=== PATIENT | male | born 1945 | race Caucasian/White ===

== ENCOUNTER 2017-05-14 18:35 | Observation (INO) | payer OTHER, MEDICARE ==
[2017-05-14] VITALS (8 sets, daily range): BP systolic 124–158; BP diastolic 64–87
[~2017-05-14] VITALS: Ht 167.6 cm; Wt 94.3 kg
[~2017-05-14 18:35] MED LIST: ASPIRIN81 MG PO; ATORVASTATIN CA20 MG PO; FENOFIBRATE145 MG PO; FOLIC ACID1 MG PO; METOPROLOL TART25 MG PO; MULTIVITAMINS1 EAC7 PO; NITROGLYCERIN0.4 MG SL; OMEPRAZOLE40 MG PO; VITAMIN B-650 MG PO; ZETIA10 MG PO
--- NOTE | 2017-05-14 19:10 | Operative Report ---
DATE OF PROCEDURE: May 14, 2017 INDICATIONS: 1. Coronary artery disease. 2. Peripheral arterial disease. PROCEDURES PERFORMED: 1. Left heart catheterization, selective coronary angiography. 2. Abdominal aortogram runoff to bilateral femoral arteries. COMPLICATIONS: None. RECOMMENDATIONS: Medical therapy. Access obtained in the right femoral artery. A 6-Amharic sheath was placed and heavy calcifications were noted in the iliac and common femoral arteries. Left main was heavily calcified. Proximal left anterior descending artery 67% heavily calcified lesion. Stent in the 1st diagonal artery 80%. In-stent re-stenosis stent in the circumflex was widely patent. Right coronary artery diffuse 30% to 50% heavily calcified stenosis. No intervention was deemed necessary. Abdominal aortogram with patent endovascular aneurysm repair bypass graft heavily calcified. Common femoral arteries right femoral artery is completely occluded. Left femoral artery focal 80% stenosis. Both vessels extremely calcified. No intervention was deemed necessary. RECOMMENDATIONS: 1. Medical therapy of coronary artery disease. 2. Femoral fem-pop bypass in the right femoral artery if the patient has severe claudication or ulceration. Sheath was removed under manual pressure. Job#: [id number]
[2017-05-14] MEDS ORDERED: MORPHINE SULFATE 2 MG/ML SYR IV PRN (20:15)
[2017-05-14] MEDS ORDERED: HYDROMORPHONE 1MG/1ML INJ IV PRN (20:30)
== END 2017-05-14 22:06 | disposition home or self-care (01) ==
LOC: IMCU 18:35
PROVIDERS: ADMIT Internal Medicine Interventional Cardiology; ATTEND Internal Medicine Interventional Cardiology
DX: I25.119 Atherosclerotic heart disease of native coronary artery with unspecified angina pectoris (principal); I70.298 Other atherosclerosis of native arteries of extremities, other extremity; I70.92 Chronic total occlusion of artery of the extremities; I10 Essential (primary) hypertension; Z79.82 Long term (current) use of aspirin; Z68.30 Body mass index [BMI] 30.0-30.9, adult; Z95.5 Presence of coronary angioplasty implant and graft
CPT/HCPCS: 36415; 75630; 77002; 80053; 80061; 85025; 85610; 93458; G0378; J2001; J2250; J7030; Q9967; 36140

== ENCOUNTER 2018-01-14 18:45 | Emergency (ER) | payer MEDICARE, OTHER ==
[~2018-01-14] VITALS: Ht 167.6 cm; Wt 94.3 kg
--- NOTE | 2018-01-14 19:06 | Operative Report ---
DATE OF PROCEDURE: NO DICTATION (00:03) Job#: [id number] CQ
[2018-01-14] MEDS ORDERED: FOSPHENYTOIN 50 MG/ML VIAL IV STA (20:15)
--- NOTE | 2018-01-14 20:19 | Diagnostic Imaging Report ---
EXAMINATION: Head CT without contrast. HISTORY:Dizziness and hypertension. COMPARISON:None. TECHNIQUE: Multidetector axial images were obtained from the foramen magnum to the vertex without contrast. The images were reconstructed using brain and bone algorithms. Thin section brain images were reformatted into coronal and sagittal planes. Dose modulation, iterative reconstruction, and/or weight based adjustment of the mA/kV was utilized to reduce the radiation dose to as low as reasonably achievable. Intravenous contrast: None IMAGE QUALITY: Acceptable. FINDINGS: Skull/scalp: No lytic or blastic. lesions. No surgical changes. Parenchyma/extra-axial space: Large acute subarachnoid hemorrhage centered in the basilar cistern, particularly involving premedullary, prepontine, perimesencephalic cistern, bilateral sylvian fissure, suprasellar cistern and anterior interhemispheric fissure. There is a large globular hemorrhage in the right paramedian aspect of the anterior interhemispheric fissure that approximately measures 1.7 x 1.5 x 1.6 cm (SAT) raising possibility of rupture of aneurysm at the level of the anterior communicating artery. Nonspecific few, scattered supratentorial white matter patchy hypodensity are likely related to small vessel ischemic changes. No mass or acute major vascular territorial infarct. No midline shift or brain herniation. Arteries: Atherosclerotic calcification in bilateral carotid siphon and V4 segment of the vertebral arteries. Dural sinuses: No abnormal density suggestive of thrombosis. Ventricles: Mild compensated dilatation due to volume loss. No acute hydrocephalus. Brain volume: Normal for age. Craniocervical junction: No mass, Chiari malformation, or basilar invagination. Sella: No mass, effacement of suprasellar cistern due to acute subarachnoid hemorrhage. Paranasal/mastoid sinuses: Imaged portions unremarkable. IMPRESSION: 1. 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 Recommendation: CTA head and neurosurgery consultation. 2. Mild supratentorial white matter microvascular ischemic changes and mild generalized age-related cerebral volume loss. Critical findings were informed to ER physician Dr. Cheney by phone at 8:07 PM on 01/15/2016. Signed by: Dr. Alisia Taylor M.D. on 01/14/2018 8:16 PM
[2018-01-14] MEDS ORDERED: NICARDIPINE 20MG/200ML PREMIX 200 ML ONE (20:21)
[2018-01-14] MEDS ORDERED: NICARDIPINE 20MG/200ML PREMIX 200 ML IV PRN (20:30)
[2018-01-14] MEDS ORDERED: FOSPHENYTOIN 1,000 MG in SODIUM CHLORIDE 0.9% 50ML 50 ML IV ONE (20:30)
[2018-01-14 20:33] LABS: BASOPHILS % 0.4 % (0.0-1.0); EOSINOPHILS # (AUTO) 0.2 (0.0-0.4); HEMATOCRIT 46.9 % (38.2-49.6); HEMOGLOBIN 16.9 g/dL (14.0-18.0); LYMPHOCYTES # (AUTO) 0.9 (1.0-3.2); LYMPHOCYTES % 11.1 % (18.0-39.1); MEAN CORPUSCULAR HEMOGLOBIN 33.4 pg (28-32); MEAN CORPUSCULAR VOLUME 92.7 fL (81-99); MONOCYTES # (AUTO) 0.7 (0.2-0.8); MONOCYTES % 8.7 % (4.4-11.3); NEUTROPHILS # (AUTO) 6.1 (2.1-6.9); NEUTROPHILS % 76.4 % (38.7-80.0); PLATELET COUNT 123 x10e3/uL (140-360); RED BLOOD COUNT 5.06 x10e6/uL (4.3-5.7); RED CELL DISTRIBUTION WIDTH 12.4 % (11.7-14.4)
[2018-01-14] MEDS ORDERED: ACETAMINOPHEN 1000 MG/100 ML IV STA (20:44)
[2018-01-14 20:51] LABS: INR 0.88; PROTHROMBIN TIME 12.8 seconds (11.9-14.5)
[2018-01-14 20:52] LABS: PARTIAL THROMBOPLASTIN TIME 34.4 seconds (23.8-35.5)
[2018-01-14] MEDS ORDERED: CLOPIDOGREL75 MG PO (20:53)
[2018-01-14] MEDS ORDERED: LOPRESSOR25 MG PO (20:53)
[2018-01-14 20:54] LABS: ALANINE AMINOTRANSFERASE 26 IU/L (0-55); ALBUMIN/GLOBULIN RATIO 1.2 (0.8-2.0); ALKALINE PHOSPHATASE 78 IU/L (40-150); ANION GAP 15.8 mmol/L (8-16); BLOOD UREA NITROGEN 18 mg/dL (7-26); BUN/CREATININE RATIO 21 (6-25); CALCIUM 9.8 mg/dL (8.4-10.2); CARBON DIOXIDE 25 mmol/L (22-29); CHLORIDE 101 mmol/L (98-107); CREATINE KINASE 121 IU/L (30-200); CREATININE, SERUM 0.87 mg/dL (0.72-1.25); EST GLOMERULAR FILTRATION RATE > 60 ML/MIN (60-); GLUCOSE 136 mg/dL (74-118); POTASSIUM 3.8 mmol/L (3.5-5.1); SODIUM 138 mmol/L (136-145)
[2018-01-14 21:22] VITALS: BP 134/81
[2018-01-15] MEDS ORDERED: NICARDIPINE 20MG/200ML PREMIX 200 ML IV PRN (20:30)
== END 2018-01-14 21:48 | disposition other institution (70) ==
LOC: ER 18:45
DX: I60.9 Nontraumatic subarachnoid hemorrhage, unspecified (principal); I10 Essential (primary) hypertension; I70.201 Unspecified atherosclerosis of native arteries of extremities, right leg; Z95.820 Peripheral vascular angioplasty status with implants and grafts; K21.9 Gastro-esophageal reflux disease without esophagitis; E78.5 Hyperlipidemia, unspecified; F17.210 Nicotine dependence, cigarettes, uncomplicated; I25.2 Old myocardial infarction; Z79.82 Long term (current) use of aspirin; Z79.02 Long term (current) use of antithrombotics/antiplatelets; Z79.1 Long term (current) use of non-steroidal anti-inflammatories (NSAID)
CPT/HCPCS: 36415; 70450; 80053; 82550; 82553; 84484; 85025; 85610; 85730; 86850; 86900; 93005; 99284; J0131; Q2009

== ENCOUNTER 2018-09-05 06:30 | Observation (INO) | payer MEDICARE, OTHER ==
[2018-09-03 10:47] LABS: BASOPHILS % 0.5 % (0.0-1.0); EOSINOPHILS # (AUTO) 0.2 (0.0-0.4); EOSINOPHILS % 3.2 % (0.0-6.0); HEMATOCRIT 47.7 % (38.2-49.6); LYMPHOCYTES # (AUTO) 1.5 (1.0-3.2); LYMPHOCYTES % 19.7 % (18.0-39.1); MEAN CORPUSCULAR HEMOGLOBIN 32.1 pg (28-32); MEAN CORPUSCULAR HGB CONC 35.6 g/dL (31-35); MEAN CORPUSCULAR VOLUME 90.2 fL (81-99); MONOCYTES # (AUTO) 0.7 (0.2-0.8); MONOCYTES % 9.5 % (4.4-11.3); NEUTROPHILS # (AUTO) 5.1 (2.1-6.9); NEUTROPHILS % 66.8 % (38.7-80.0); PLATELET COUNT 152 x10e3/uL (140-360); RED BLOOD COUNT 5.29 x10e6/uL (4.3-5.7); RED CELL DISTRIBUTION WIDTH 12.5 % (11.7-14.4)
[2018-09-03 11:01] LABS: INR 0.91; PROTHROMBIN TIME 12.7 seconds (11.9-14.5)
[2018-09-03 11:08] LABS: ALANINE AMINOTRANSFERASE 24 IU/L (0-55); ALBUMIN 4.2 g/dL (3.5-5.0); ALBUMIN/GLOBULIN RATIO 1.3 (0.8-2.0); ALKALINE PHOSPHATASE 86 IU/L (40-150); ANION GAP 15.3 mmol/L (8-16); BLOOD UREA NITROGEN 11 mg/dL (7-26); BUN/CREATININE RATIO 14 (6-25); CALCIUM 9.8 mg/dL (8.4-10.2); CARBON DIOXIDE 28 mmol/L (22-29); CHLORIDE 97 mmol/L (98-107); EST GLOMERULAR FILTRATION RATE > 60 ML/MIN (60-); GLUCOSE 72 mg/dL (74-118); POTASSIUM 4.3 mmol/L (3.5-5.1); SODIUM 136 mmol/L (136-145)
[2018-09-03 11:09] LABS: CHOL/HDL RATIO 3.1 (3.9-4.7)
[~2018-09-05] VITALS: Ht 167.6 cm; Wt 80.9 kg
[2018-09-05] VITALS (22 sets, daily range): BP systolic 121–178; BP diastolic 70–100
[~2018-09-05 06:30] MED LIST changes: +BEET ROOT PO; +CLOPIDOGREL75 MG PO; +LOPRESSOR25 MG PO; +METOPROLOL TART50 MG PO
--- OUTSIDE RECORDS SUMMARY | 2018-09-05 06:32 | XMS REPORT | Clinical Summary ---
Author Author [facility] Address Unknown Phone Unavailable Care Team Providers Care Food Prep Worker Name Role Phone PCP Unavailable Allergies No Known Allergies Medications End Date Status Medication Sig Dispensed Refills Start Date 01/26/2019 Active acetaminophen (TYLENOL) Take 2 30 tablet 0 325 MG tablet tablets (650 8 mg total) by mouth every 6 (six) hours as needed for Fever for up to 360 days. 02/01/2019 Active aspirin 81 MG chewable Take 1 tablet 30 tablet 11 tablet (81 mg total) 8 by mouth daily. 01/31/2019 Active atorvastatin (LIPITOR) 20 Take 1 tablet 30 tablet 11 MG tablet (20 mg total) 8 by mouth nightly. 02/01/2019 Active metoprolol (TOPROL-XL) Take 1 tablet 30 tablet 11 100 MG 24 hr tablet (100 mg 8 total) by mouth daily. 01/31/2019 Active levETIRAcetam (KEPPRA) Take 1 tablet 60 tablet 11 500 MG tablet (500 mg 8 total) by mouth 2 (two) times daily. 01/15/2018 Discontinued multivitamin per tablet Take 1 tablet 0 by mouth daily. 01/15/2018 Discontinued aspirin 81 MG EC tablet Take 81 mg by 0 mouth daily. 02/10/2018 acetaminophen-codeine Take 1 tablet 30 tablet 0 (TYLENOL #3) 300-30 mg by mouth 8 per tablet every 4 (four) hours as needed for up to 10 days. Max Daily Amount: 6 tablets 03/02/2018 apixaban (ELIQUIS) 5 mg Take 1 tablet 60 tablet 1 Tab tablet (5 mg total) 8 by mouth 2 (two) times daily for 30 days. 03/02/2018 QUEtiapine (SEROQUEL) 25 Take 3 90 tablet 1 MG tablet tablets (75 8 mg total) by mouth nightly for 30 days. 03/02/2018 mirtazapine (REMERON) 7.5 Take 1 tablet 30 tablet 1 MG tablet (7.5 mg 8 total) by mouth nightly for 30 days. 02/04/2018 niMODipine (NIMOTOP) 30 Take 2 48 capsule 0 MG capsule capsules (60 8 mg total) by mouth every 4 (four) hours for 4 days. Active Problems Problem Noted Date Essential hypertension 01/16/2018 PVD (peripheral vascular disease) 01/16/2018 Thunderclap headache 01/16/2018 Subarachnoid bleed 01/15/2018 Encounters Care Team Description Date Type Specialty 01/20/2018 Orders Only General Internal Medicine Ac Esparza MD 01/15/2018 Anesthesia Event Virtual, Surgeon PROCEDURE DONE OUTSIDE OR 01/15/2018 Surgery 01/15/2018 Travel Sergio Poe MD Jarrouge, Elie G., MD Bhattarai, MD Wilman Subarachnoid bleed (HCC); Essential hypertension; PVD (peripheral vascular disease) (HCC); Thunderclap headache; Paroxysmal atrial fibrillation (HCC); Acute encephalopathy; Alcoholism (HCC); Other abnormalities of gait and mobility; Delirium due to another medical condition 01/14/2018 [facility] General Internal Medicine - Encounter 01/31/2018 after 09/04/2017 Social History Date Tobacco Use Types Packs/Day Years Used Current Every Day Smoker Cigarettes 2 60 Smokeless Tobacco: Never Used Alcohol Use Drinks/Week oz/Week Comments Yes Alcohol Habits Answer Date Recorded How often do you have a drink containing alcohol? 2-4 times a month 01/15/2018 How many drinks containing alcohol do you have on 10 or more 01/15/2018 a typical day when you are drinking? How often do you have six or more drinks on one Weekly 01/15/2018 occasion? Sex Assigned at Date Recorded Not on file Industry Job Start Date Occupation Not on file Not on file Not on file Travel End Travel History Travel Start No recent travel history available. Last Filed Vital Signs Time Taken Vital Sign Reading 01/31/2018 11:30 AM [employer] Blood Pressure 127/74 01/31/2018 11:30 AM [employer]AKFAST SUPERVISOR Pulse 50 01/31/2018 11:30 AM BREAKFAST SUPERVISOR Temperature 36.1 C (97 F) 01/31/2018 11:30 AM BREAKFAST SUPERVISOR Respiratory Rate 18 01/31/2018 11:30 AM BREAKFAST SUPERVISOR Oxygen Saturation 96% 01/28/2018 12:02 AM BREAKFAST SUPERVISOR Inhaled Oxygen 21% Concentration 01/24/2018 4:00 AM BREAKFAST SUPERVISOR Weight 79.8 kg (175 lb 14.8 oz) 01/15/2018 1:00 AM BREAKFAST SUPERVISOR Height 167.6 cm (5' 6") 01/24/2018 4:00 AM [employer]AKFAST SUPERVISOR Body Mass Index 28.4 Plan of Treatment Not on file Procedures Comments Procedure Name Priority Date/Time Associated Diagnosis REPORT OF PROCEDURE - 02/18/2018 ENDOSCOPY SCAN 11:20 AM BREAKFAST SUPERVISOR RHYTHM STRIP - SCAN 02/18/2018 11:20 AM BREAKFAST SUPERVISOR POCT-GLUCOSE METER Routine 01/31/2018 11:48 AM BREAKFAST SUPERVISOR POCT-GLUCOSE METER Routine 01/31/2018 8:13 AM BREAKFAST SUPERVISOR POCT-GLUCOSE METER Routine 01/30/2018 9:16 PM BREAKFAST SUPERVISOR POCT-GLUCOSE METER Routine 01/30/2018 6:02 PM BREAKFAST SUPERVISOR POCT-GLUCOSE METER Routine 01/30/2018 12:37 PM BREAKFAST SUPERVISOR POCT-GLUCOSE METER Routine 01/29/2018 8:34 PM BREAKFAST SUPERVISOR POCT-GLUCOSE METER Routine 01/29/2018 5:43 PM BREAKFAST SUPERVISOR POCT-GLUCOSE METER Routine 01/29/2018 8:44 AM BREAKFAST SUPERVISOR CBC W/PLT COUNT & AUTO SHAHID 01/29/2018 DIFFERENTIAL 4:41 AM BREAKFAST SUPERVISOR CBC W/PLT COUNT & AUTO SHAHID 01/29/2018 DIFFERENTIAL 4:41 AM BREAKFAST SUPERVISOR BASIC METABOLIC PANEL (7) Routine 01/29/2018 4:41 AM BREAKFAST SUPERVISOR POCT-GLUCOSE METER Routine 01/28/2018 9:18 PM BREAKFAST SUPERVISOR POCT-GLUCOSE METER Routine 01/28/2018 5:04 PM BREAKFAST SUPERVISOR POCT-GLUCOSE METER Routine 01/28/2018 7:58 AM BREAKFAST SUPERVISOR CBC W/PLT COUNT & AUTO SHAHID 01/28/2018 DIFFERENTIAL 4:55 AM BREAKFAST SUPERVISOR CBC W/PLT COUNT & AUTO SHAHID 01/28/2018 DIFFERENTIAL 4:55 AM BREAKFAST SUPERVISOR BASIC METABOLIC PANEL (7) Routine 01/28/2018 4:55 AM BREAKFAST SUPERVISOR POCT-GLUCOSE METER Routine 01/27/2018 8:48 PM BREAKFAST SUPERVISOR POCT-GLUCOSE METER Routine 01/27/2018 5:56 PM BREAKFAST SUPERVISOR POCT-GLUCOSE METER Routine 01/27/2018 2:34 PM BREAKFAST SUPERVISOR ECHOCARDIOGRAM REPORT - 01/27/2018 SCAN 1:20 PM BREAKFAST SUPERVISOR POCT-GLUCOSE METER Routine 01/27/2018 7:33 AM BREAKFAST SUPERVISOR POCT-GLUCOSE METER Routine 01/27/2018 6:02 AM BREAKFAST SUPERVISOR CBC (HEMOGRAM ONLY) Routine 01/27/2018 3:53 AM BREAKFAST SUPERVISOR MAGNESIUM Routine 01/27/2018 3:53 AM BREAKFAST SUPERVISOR BASIC METABOLIC PANEL (7) Routine 01/27/2018 3:53 AM BREAKFAST SUPERVISOR POCT-GLUCOSE METER Routine 01/26/2018 11:39 PM BREAKFAST SUPERVISOR POCT-GLUCOSE METER Routine 01/26/2018 5:42 PM BREAKFAST SUPERVISOR POCT-GLUCOSE METER Routine 01/26/2018 6:07 AM BREAKFAST SUPERVISOR MAGNESIUM Routine 01/26/2018 4:16 AM BREAKFAST SUPERVISOR BASIC METABOLIC PANEL (7) Routine 01/26/2018 4:16 AM BREAKFAST SUPERVISOR POCT-GLUCOSE METER Routine 01/25/2018 11:38 PM BREAKFAST SUPERVISOR POCT-GLUCOSE METER Routine 01/25/2018 6:20 PM BREAKFAST SUPERVISOR POCT-GLUCOSE METER Routine 01/25/2018 5:59 AM BREAKFAST SUPERVISOR MAGNESIUM Routine 01/25/2018 5:48 AM BREAKFAST SUPERVISOR BASIC METABOLIC PANEL (7) Routine 01/25/2018 5:48 AM BREAKFAST SUPERVISOR POCT-GLUCOSE METER Routine 01/25/2018 12:10 AM BREAKFAST SUPERVISOR POCT-GLUCOSE METER Routine 01/24/2018 5:30 PM BREAKFAST SUPERVISOR POCT-GLUCOSE METER Routine 01/24/2018 12:24 PM BREAKFAST SUPERVISOR SODIUM SHAHID 01/24/2018 11:09 AM BREAKFAST SUPERVISOR POCT-GLUCOSE METER Routine 01/24/2018 8:17 AM BREAKFAST SUPERVISOR POCT-GLUCOSE METER Routine 01/24/2018 6:18 AM BREAKFAST SUPERVISOR CBC W/PLT COUNT & AUTO Routine 01/24/2018 DIFFERENTIAL 3:16 AM BREAKFAST SUPERVISOR CBC W/PLT COUNT & AUTO Routine 01/24/2018 DIFFERENTIAL 3:16 AM BREAKFAST SUPERVISOR MAGNESIUM Routine 01/24/2018 3:15 AM BREAKFAST SUPERVISOR BASIC METABOLIC PANEL (7) Routine 01/24/2018 3:15 AM BREAKFAST SUPERVISOR POCT-GLUCOSE METER Routine 01/24/2018 12:14 AM BREAKFAST SUPERVISOR POCT-GLUCOSE METER Routine 01/23/2018 6:35 PM BREAKFAST SUPERVISOR POCT-GLUCOSE METER Routine 01/23/2018 12:22 PM BREAKFAST SUPERVISOR POCT-GLUCOSE METER Routine 01/23/2018 6:12 AM BREAKFAST SUPERVISOR CBC W/PLT COUNT & AUTO Routine 01/23/2018 DIFFERENTIAL 5:12 AM BREAKFAST SUPERVISOR BASIC METABOLIC PANEL (7) Routine 01/23/2018 5:12 AM BREAKFAST SUPERVISOR CBC W/PLT COUNT & AUTO Routine 01/23/2018 DIFFERENTIAL 5:12 AM BREAKFAST SUPERVISOR MAGNESIUM Routine 01/23/2018 5:12 AM BREAKFAST SUPERVISOR POCT-GLUCOSE METER Routine 01/22/2018 5:13 PM BREAKFAST SUPERVISOR SODIUM Routine 01/22/2018 4:56 PM BREAKFAST SUPERVISOR POCT-GLUCOSE METER Routine 01/22/2018 12:33 PM BREAKFAST SUPERVISOR POCT-GLUCOSE METER Routine 01/22/2018 9:27 AM BREAKFAST SUPERVISOR POCT-GLUCOSE METER Routine 01/22/2018 5:50 AM BREAKFAST SUPERVISOR CBC W/PLT COUNT & AUTO Routine 01/22/2018 DIFFERENTIAL 4:27 AM BREAKFAST SUPERVISOR HEMOGLOBIN A1C Routine 01/22/2018 4:27 AM BREAKFAST SUPERVISOR TSH Routine 01/22/2018 4:27 AM BREAKFAST SUPERVISOR BASIC METABOLIC PANEL (7) Routine 01/22/2018 4:27 AM BREAKFAST SUPERVISOR CBC W/PLT COUNT & AUTO Routine 01/22/2018 DIFFERENTIAL 4:27 AM BREAKFAST SUPERVISOR MAGNESIUM Routine 01/22/2018 4:27 AM BREAKFAST SUPERVISOR POCT-GLUCOSE METER Routine 01/21/2018 11:33 PM BREAKFAST SUPERVISOR NEURO TCD - COMPLETE Routine 01/21/2018 6:08 PM BREAKFAST SUPERVISOR POCT-GLUCOSE METER Routine 01/21/2018 4:34 PM BREAKFAST SUPERVISOR POCT-GLUCOSE METER Routine 01/21/2018 10:58 AM BREAKFAST SUPERVISOR ECG 12-LEAD STAT 01/21/2018 9:14 AM BREAKFAST SUPERVISOR POCT-GLUCOSE METER Routine 01/21/2018 8:09 AM BREAKFAST SUPERVISOR POCT-GLUCOSE METER Routine 01/21/2018 5:56 AM BREAKFAST SUPERVISOR CBC W/PLT COUNT & AUTO Routine 01/21/2018 DIFFERENTIAL 2:59 AM BREAKFAST SUPERVISOR BASIC METABOLIC PANEL (7) Routine 01/21/2018 2:59 AM BREAKFAST SUPERVISOR CBC W/PLT COUNT & AUTO Routine 01/21/2018 DIFFERENTIAL 2:59 AM BREAKFAST SUPERVISOR MAGNESIUM Routine 01/21/2018 2:59 AM BREAKFAST SUPERVISOR POCT-GLUCOSE METER Routine 01/21/2018 2:05 AM BREAKFAST SUPERVISOR EEG AWAKE AND DROWSY Routine 01/20/2018 1:42 PM BREAKFAST SUPERVISOR POCT-GLUCOSE METER Routine 01/20/2018 12:[address] BRAIN WITHOUT IV STAT 01/20/2018 CONTRAST 10:36 AM BREAKFAST SUPERVISOR ECG 12-LEAD Routine 01/20/2018 8:03 AM BREAKFAST SUPERVISOR ECG 12-LEAD Routine 01/20/2018 6:26 AM BREAKFAST SUPERVISOR Procedure Note - Interface, External Ris In - 01/20/2018 6:55 AM BREAKFAST SUPERVISOR Ventricula r Rate 73 BPM Atrial Rate 208 BPM QRS Duration 88 ms Q-T Interval 536 ms QTC Calculatio n(Bazett) 590 ms R Phenix 74 degrees T Phenix 113 degrees Atrial fibrillati on Nonspecifi c T wave abnormalit y , probably digitalis effect Prolonged QT Abnormal ECG When compared with ECG of 8 06:26, QT has lengthened ECG 12-LEAD Routine 01/20/2018 6:26 AM BREAKFAST SUPERVISOR ECG 12-LEAD Routine 01/20/2018 6:26 AM BREAKFAST SUPERVISOR Procedure Note - Interface, External Ris In - 01/20/2018 6:54 AM BREAKFAST SUPERVISOR Ventricula r Rate 87 BPM Atrial Rate 340 BPM QRS Duration 88 ms Q-T Interval 350 ms QTC Calculatio n(Bazett) 421 ms R Phenix 72 degrees T Phenix 95 degrees Atrial fibrillati on Nonspecifi c T wave abnormalit y , probably digitalis effect Abnormal ECG When compared with ECG of 8 04:37, Vent. rate has decreased BY 49 BPM Non-specif ic change in ST segment in Inferior leads ST no longer depressed in Anterior leads Nonspecifi c T wave abnormalit y, worse in Anterolate ral leads POCT-GLUCOSE METER Routine 01/20/2018 6:00 AM BREAKFAST SUPERVISOR CBC W/PLT COUNT & AUTO Routine 01/20/2018 DIFFERENTIAL 3:01 AM BREAKFAST SUPERVISOR CBC W/PLT COUNT & AUTO Routine 01/20/2018 DIFFERENTIAL 3:01 AM BREAKFAST SUPERVISOR BASIC METABOLIC PANEL (7) Routine 01/20/2018 3:01 AM BREAKFAST SUPERVISOR POCT-GLUCOSE METER Routine 01/20/2018 12:13 AM BREAKFAST SUPERVISOR POTASSIUM Routine 2018 5:12 PM BREAKFAST SUPERVISOR POCT-GLUCOSE METER Routine 2018 4:32 PM BREAKFAST SUPERVISOR NEURO TCD - COMPLETE Routine 2018 11:02 AM BREAKFAST SUPERVISOR POCT-GLUCOSE METER Routine 2018 10:51 AM BREAKFAST SUPERVISOR POCT-GLUCOSE METER Routine 2018 8:25 AM BREAKFAST SUPERVISOR POCT-GLUCOSE METER Routine 2018 6:48 AM BREAKFAST SUPERVISOR CBC W/PLT COUNT & AUTO Routine 2018 DIFFERENTIAL 2:48 AM BREAKFAST SUPERVISOR CBC W/PLT COUNT & AUTO Routine 2018 DIFFERENTIAL 2:48 AM BREAKFAST SUPERVISOR BASIC METABOLIC PANEL (7) Routine 2018 2:48 AM BREAKFAST SUPERVISOR POCT-GLUCOSE METER Routine 01/18/2018 11:49 PM BREAKFAST SUPERVISOR POCT-GLUCOSE METER Routine 01/18/2018 5:16 PM BREAKFAST SUPERVISOR POCT-GLUCOSE METER Routine 01/18/2018 11:41 AM BREAKFAST SUPERVISOR 2D ECHO W/ DOPPLER SHAHID 01/18/2018 (CW/PW/COLOR) 7:43 AM BREAKFAST SUPERVISOR POCT-GLUCOSE METER Routine 01/18/2018 7:30 AM BREAKFAST SUPERVISOR ECG 12-LEAD Routine 01/18/2018 4:37 AM BREAKFAST SUPERVISOR CBC W/PLT COUNT & AUTO Routine 01/18/2018 DIFFERENTIAL 3:09 AM BREAKFAST SUPERVISOR CBC W/PLT COUNT & AUTO Routine 01/18/2018 DIFFERENTIAL 3:09 AM BREAKFAST SUPERVISOR PHOSPHORUS Routine 01/18/2018 3:09 AM BREAKFAST SUPERVISOR MAGNESIUM Routine 01/18/2018 3:09 AM BREAKFAST SUPERVISOR BASIC METABOLIC PANEL (7) Routine 01/18/2018 3:09 AM BREAKFAST SUPERVISOR POCT-GLUCOSE METER Routine 01/17/2018 11:[address] BRAIN WITHOUT IV STAT 01/17/2018 CONTRAST PORTABLE 8:43 PM BREAKFAST SUPERVISOR MAGNESIUM SHAHID 01/17/2018 7:48 PM BREAKFAST SUPERVISOR POTASSIUM SHAHID 01/17/2018 7:48 PM BREAKFAST SUPERVISOR NEURO TCD - COMPLETE Routine 01/17/2018 6:10 PM BREAKFAST SUPERVISOR TRANSFUSION SERVICE 01/17/2018 REPORT - SCAN 6:03 PM BREAKFAST SUPERVISOR POCT-GLUCOSE METER Routine 01/17/2018 5:40 PM BREAKFAST SUPERVISOR CBC W/PLT COUNT & AUTO Routine 01/17/2018 DIFFERENTIAL 3:59 PM BREAKFAST SUPERVISOR CBC W/PLT COUNT & AUTO Routine 01/17/2018 DIFFERENTIAL 3:59 PM BREAKFAST SUPERVISOR POTASSIUM Routine 01/17/2018 3:58 PM BREAKFAST SUPERVISOR POCT-GLUCOSE METER Routine 01/17/2018 12:21 PM BREAKFAST SUPERVISOR POTASSIUM SHAHID 01/17/2018 9:51 AM BREAKFAST SUPERVISOR POCT-GLUCOSE METER Routine 01/17/2018 5:46 AM BREAKFAST SUPERVISOR CBC W/PLT COUNT & AUTO Routine 01/17/2018 DIFFERENTIAL 3:42 AM BREAKFAST SUPERVISOR BASIC METABOLIC PANEL (7) Routine 01/17/2018 3:42 AM BREAKFAST SUPERVISOR CBC W/PLT COUNT & AUTO Routine 01/17/2018 DIFFERENTIAL 3:42 AM BREAKFAST SUPERVISOR POCT-GLUCOSE METER Routine 01/17/2018 12:10 AM BREAKFAST SUPERVISOR PREPARE LEUKO-REDUCED Routine 01/16/2018 PLATELETS 11:54 PM BREAKFAST SUPERVISOR PREPARE LEUKO-REDUCED Routine 01/16/2018 PLATELETS 11:54 PM BREAKFAST SUPERVISOR NEURO TCD - COMPLETE Routine 01/16/2018 6:17 PM BREAKFAST SUPERVISOR POCT-GLUCOSE METER Routine 01/16/2018 6:13 PM BREAKFAST SUPERVISOR TRANSFUSION SERVICE 01/16/2018 REPORT - SCAN 6:[address] BRAIN WITHOUT IV STAT 01/16/2018 CONTRAST PORTABLE 4:32 PM BREAKFAST SUPERVISOR POTASSIUM Routine 01/16/2018 12:10 PM BREAKFAST SUPERVISOR POCT-GLUCOSE METER Routine 01/16/2018 11:59 AM BREAKFAST SUPERVISOR TRANSFUSE LEUKO-REDUCED Routine 01/16/2018 PLATELETS 11:18 AM BREAKFAST SUPERVISOR TRANSFUSE LEUKO-REDUCED Routine 01/16/2018 PLATELETS 11:18 AM BREAKFAST SUPERVISOR POCT-GLUCOSE METER Routine 01/16/2018 5:48 AM BREAKFAST SUPERVISOR CBC W/PLT COUNT & AUTO Routine 01/16/2018 DIFFERENTIAL 4:14 AM BREAKFAST SUPERVISOR BASIC METABOLIC PANEL (7) Routine 01/16/2018 4:14 AM BREAKFAST SUPERVISOR CBC W/PLT COUNT & AUTO Routine 01/16/2018 DIFFERENTIAL 4:14 AM BREAKFAST SUPERVISOR POCT-GLUCOSE METER Routine 01/15/2018 11:32 PM BREAKFAST SUPERVISOR TROPONIN I Routine 01/15/2018 5:50 PM BREAKFAST SUPERVISOR POCT-GLUCOSE METER Routine 01/15/2018 5:43 PM BREAKFAST SUPERVISOR NV CEREBRAL 4 VESSEL Routine 01/15/2018 ANGIOGRAM 3:34 PM BREAKFAST SUPERVISOR POCT-ACT Routine 01/15/2018 3:10 PM BREAKFAST SUPERVISOR ECG 12-LEAD STAT 01/15/2018 10:13 AM BREAKFAST SUPERVISOR PROCEDURE DONE OUTSIDE OR 01/15/2018 Subarachnoid hemorrhage 9:39 AM BREAKFAST SUPERVISOR (HCC) Special Needs REQ TF PLATELET AGGREGATION: Routine 01/15/2018 FUNCTION SCREEN 9:07 AM BREAKFAST SUPERVISOR POCT-GLUCOSE METER Routine 01/15/2018 6:18 AM BREAKFAST SUPERVISOR URINALYSIS W/ MICROSCOPIC Routine 01/15/2018 5:22 AM BREAKFAST SUPERVISOR CBC W/PLT COUNT & AUTO Routine 01/15/2018 DIFFERENTIAL 5:00 AM BREAKFAST SUPERVISOR BASIC METABOLIC PANEL (7) Routine 01/15/2018 5:00 AM BREAKFAST SUPERVISOR CBC W/PLT COUNT & AUTO Routine 01/15/2018 DIFFERENTIAL 5:00 AM BREAKFAST SUPERVISOR APTT Routine 01/15/2018 1:11 AM BREAKFAST SUPERVISOR PROTHROMBIN TIME/INR Routine 01/15/2018 1:11 AM BREAKFAST SUPERVISOR CBC W/PLT COUNT & AUTO Routine 01/15/2018 DIFFERENTIAL 12:26 AM BREAKFAST SUPERVISOR TYPE AND SCREEN, Routine 01/15/2018 AUTOMATED 12:26 AM BREAKFAST SUPERVISOR BASIC METABOLIC PANEL (7) Routine 01/15/2018 12:26 AM BREAKFAST SUPERVISOR CBC W/PLT COUNT & AUTO Routine 01/15/2018 DIFFERENTIAL 12:26 AM BREAKFAST SUPERVISOR TROPONIN I Routine 01/15/2018 12:[address]/CTA CAROTID Routine 01/14/2018 11:[address]/CTA BRAIN Routine 01/14/2018 11:58 PM BREAKFAST SUPERVISOR after 09/04/2017 Results * EKG-SCANNED (02/18/2018 11:20 AM BREAKFAST SUPERVISOR) Narrative Performed At * RHYTHM STRIP - SCAN (02/18/2018 11:20 AM BREAKFAST SUPERVISOR) Narrative Performed At * POC-Glucose meter (01/31/2018 11:48 AM BREAKFAST SUPERVISOR) Only the most recent of 63 results within the time period is included. POC-Glucose Meter 85Comment: TESTED AT [facility] 70 - 110 mg/dL [address] Specimen Blood Performing Organization Address City/State/[place] [address] [facility] * CBC with platelet count + automated diff (01/29/2018 4:41 AM BREAKFAST SUPERVISOR) Only the most recent of 14 results within the time period is included. WBC 6.6 3.5 - 10.5 K/L [facility] RBC 4.58 (L) 4.63 - 6.08 M/L [facility] Hemoglobin 14.7 13.7 - 17.5 GM/DL [facility] Hematocrit 43.0 40.1 - 51.0 % [facility] MCV 93.9 (H) 79.0 - 92.2 fL [facility] MCH 32.1 25.7 - 32.2 pg [facility] MCHC 34.2 32.3 - 36.5 GM/DL [facility] RDW 12.2 11.6 - 14.4 % [facility] Platelets 217 150 - 450 K/CU MM [facility] MPV 9.9 9.4 - 12.4 fL [facility] nRBC 0 0 - 0 /100 WBC [facility] % Neutros 58 % [facility] % Lymphs 25 % [facility] % Monos 12 % [facility] % Eos 4 % [facility] % Baso 1 % [facility] # Neutros 3.84 1.78 - 5.38 K/L [facility] # Lymphs 1.61 1.32 - 3.57 K/L [facility] # Monos 0.76 0.30 - 0.82 K/L [facility] # Eos 0.28 0.04 - 0.54 K/L [facility] # Baso 0.05 0.01 - 0.08 K/L [facility] Immature 1 0 - 1 % [facility] Granulocytes-Relative [facility] Specimen Blood Performing Organization Address City/State/Zipcode Phone Number [facility] [address] [place] [address] [facility] * Basic Metabolic Panel (01/29/2018 4:41 AM BREAKFAST SUPERVISOR) Only the most recent of 16 results within the time period is included. Sodium 137 136 - 145 meq/L [facility] Potassium 3.9 3.5 - 5.1 meq/L [facility] Chloride 104 98 - 107 meq/L [facility] CO2 24 22 - 29 meq/L [facility] BUN 18 7 - 21 mg/dL [facility] Creatinine 0.90 0.57 - 1.25 mg/dL [facility] Glucose 83 70 - 105 mg/dL [facility] Calcium 9.8 8.4 - 10.2 mg/dL [facility] EGFR 82Comment: ESTIMATED GFR IS mL/min/1.73 sq m [facility] NOT ACCURATE CREATININE [facility] CLEARANCE IN PREDICTING GLOMERULAR FILTRATION RATE. ESTIMATED GFR IS NOT APPLICABLE FOR DIALYSIS PATIENTS. Specimen Blood Performing Organization Address City/State/Zipcode Phone Number [facility] [address] [place] [address] [facility] * ECHOCARDIOGRAM REPORT - SCAN (01/27/2018 1:20 PM BREAKFAST SUPERVISOR) Narrative Performed At * CBC (Hemogram only) (01/27/2018 3:53 AM BREAKFAST SUPERVISOR) WBC 9.0 3.5 - 10.5 K/L [facility] RBC 4.58 (L) 4.63 - 6.08 M/L [facility] Hemoglobin 14.8 13.7 - 17.5 GM/DL [facility] Hematocrit 43.3 40.1 - 51.0 % [facility] MCV 94.5 (H) 79.0 - 92.2 fL [facility] MCH 32.3 (H) 25.7 - 32.2 pg [facility] MCHC 34.2 32.3 - 36.5 GM/DL [facility] RDW 12.1 11.6 - 14.4 % [facility] Platelets 198 150 - 450 K/CU MM [facility] MPV 10.0 9.4 - 12.4 fL [facility] nRBC 0 0 - 0 /100 WBC [facility] Specimen Blood Performing Organization Address City/State/Zipcode Phone Number [facility] [id number] [place] [address] * Magnesium (01/27/2018 3:53 AM BREAKFAST SUPERVISOR) Only the most recent of 9 results within the time period is included. Magnesium 2.1 1.6 - 2.6 mg/dL [facility] Specimen Blood Performing Organization Address City[facility] Phone Number [address] * Sodium (01/24/2018 11:09 AM BREAKFAST SUPERVISOR) Only the most recent of 2 results within the time period is included. Sodium 134 (L) 136 - 145 meq/L [facility] Specimen Blood Performing Organization Address [facility] Phone Number [address] * TSH (01/22/2018 4:27 AM BREAKFAST SUPERVISOR) TSH 1.24 0.35 - 4.94 uIU/mL [facility] Specimen Blood Performing Organization Address City/[facility] Phone Number [address] * Hemoglobin A1c (01/22/2018 4:27 AM BREAKFAST SUPERVISOR) Hemoglobin A1C 5.6 4.3 - 6.1 % [facility] Specimen Blood Performing Organization Address [facility] Phone Number [address] * Transcranial Doppler Complete (TCD) (01/21/2018 6:08 PM BREAKFAST SUPERVISOR) Specimen Narrative Performed At Bladimir Egan MD 01/22/20184:34 PM [facility] - Transcranial Doppler Report Patient Name: Bree Rios Date: 01/21/18 Referring physician: Indication:aSAH Mean Cerebral Blood Flow Velocities (MCBFVs) of the following arteries were insonated: R MCAR ACAR ICAR PCAR EC ICA R Opthalmic R Vertebral L MCAL ACAL ICAL PCAL DIRECTOR MARKETING ANALYTICS L Opthalmic L Vertebral BasilarL EC ICA Maximal estimated mean blood flow velocities (cm / sec): R EC ICA 23 L EC ICA 25 R Opthalmic L Opthalmic R MCA38 R JESSICA 89 R ICA 35 R DIRECTOR MARKETING ANALYTICS 26 L MCA 36 L JESSICA 54 L ICA30 L DIRECTOR MARKETING ANALYTICS 29 R vertebral 24 L vertebral 28 Basilar 39 [place] (R MCA:R ECICA) 1.67 [place] (L MCA:L ECICA)1.47 Post bleed day #: Date: HCT: CVP (mmHg) BP: Clinical correlation recommended. Velocity Range [place] Elevated velocity=90 - 119 cm/sec Mild dpuginhhg=773 - 159 cm/sec Moderate soiqxdrfi=930 - 199 cm/sec .Severe vasospasm=? 200 cm/sec Interpretation: Interpretation: This is a complete [facility] velocity criteria, there is no vasospasm. The R JESSICA velocity is mildly elevated Insonated intracranial vessels are patent with antegrade flow. Bladimir Egan MD Distillation Operator Helper of Neurology [facility] Performing Organization Address City/State/Zipcode Phone Number GE RIS * ECG 12 lead (01/21/2018 9:14 AM BREAKFAST SUPERVISOR) Only the most recent of 5 results within the time period is included. Specimen Narrative Performed At Ventricular Rate 66 BPM GE MUSE Atrial Rate 66 BPM P-R Interval 138 ms QRS Duration 88 ms Q-T Interval 406 ms QTC Calculation(Bazett) 425 ms P Phenix 26 degrees R Phenix 41 degrees T Phenix 69 degrees Normal sinus rhythm with pac's Left atrial enlargement Borderline ECG When compared with ECG of 20-JAN-2018 08:03, Sinus rhythm has replaced Atrial fibrillation QT has shortened Confirmed by MD Shanta, Charles ([id number]) on 01/21/2018 2:30:49 PM Procedure Note Interface, External Ris In - 01/21/2018 2:30 PM BREAKFAST SUPERVISOR Ventricular Rate 66 BPM Atrial Rate 66 BPM P-R Interval 138 ms QRS Duration 88 ms Q-T Interval 406 ms QTC Calculation(Bazett) 425 ms P Phenix 26 degrees R Phenix 41 degrees T Phenix 69 degrees Normal sinus rhythm with pac's Left atrial enlargement Borderline ECG When compared with ECG of 20-JAN-2018 08:03, Sinus rhythm has replaced Atrial fibrillation QT has shortened Confirmed by MD Womack Roberto ([id number]) on 01/21/2018 2:30:49 PM Performing Organization Address City/State/Zipcode Phone Number GE MUSE * EEG AWAKE AND DROWSY (01/20/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 MEDICATIONS THAT COULD AFFECT EEG (in past 24 hours): [place], Ativan TECHNICAL SUMMARY: This is a digital video EEG recorded with 32 input channels reviewed with bipolar and referential montages using the modified combinatorial system nomenclature. Descriptors used for the background, any periodic patterns, and any sporadic discharges per ACNS 2012 Standardized ICU EEG Nomenclature. DESCRIPTION OF RECORD: AWAKE: The posterior dominant rhythm was 8.5 Hz. The background showed low voltage 18-22 Hz activity more anteriorly. The frontal leads (Fp1 and Fp2) were contaminated with high frequency activity through the whole study. SLEEP:Stage II sleep was characterized by symmetric sleep spindles and K-complexes; POSTS were also seen occasionally. HYPERVENTILATION: Hyperventilation was not performed. PHOTIC STIMULATION: Photic stimulation was done from 3-9 Hz before patient refusal; no photic driving was seen; photoparoxysmal responses were absent. EVENTS: None ELECTROCARDIOGRAM: A single lead EKG showed an average rate of 84. IMPRESSION: Normal awake and asleep EEG CLINICAL COMMENT: An EEG without epileptiform discharges does not exclude the possibility of epilepsy.If the clinical suspicion of epilepsy remains, consider additional EEG recordings. Marisabel Banks MD Epilepsy Fellow [facility] Neurophysiology Service Blair Chen M.D., FACNS, FAAN, FABAUTISTA Professor of Neurology, [facility] [employer] Director, [facility] Epilepsy Center Head, [facility] Neurophysiology Lab Procedure Note Interface, External Ris In - 01/20/2018 3:37 PM BREAKFAST SUPERVISOR Neurophysiology Electroencephalogram Report DATE OF REPORT: DATE \\@ "M/d/yy" 01/20/18 Date(s) of Study: 01/20/2018 ACC: [id number] Start time: 1319 hrs Stop time: 1341 hrs ICD-10: R56.9 Unspecified Convulsions CPT Code: 04491 EEG: awake and asleep <40 min HISTORY (per occupational therapy technician note): 73 year old male referred for inpatient EEG due to an episode of shaking during an intense headache. MEDICATIONS THAT COULD AFFECT EEG (in past 24 hours): [place], Ativan TECHNICAL SUMMARY: This is a digital video EEG recorded with 32 input channels reviewed with bipolar and referential montages using the modified combinatorial system nomenclature. Descriptors used for the background, any periodic patterns, and any sporadic discharges per ACNS 2012 Standardized ICU EEG Nomenclature. DESCRIPTION OF RECORD: AWAKE: The posterior dominant rhythm was 8.5 Hz. The background showed low voltage 18-22 Hz activity more anteriorly. The frontal leads (Fp1 and Fp2) were contaminated with high frequency activity through the whole study. SLEEP: Stage II sleep was characterized by symmetric sleep spindles and K-complexes; POSTS were also seen occasionally. HYPERVENTILATION: Hyperventilation was not performed. PHOTIC STIMULATION: Photic stimulation was done from 3-9 Hz before patient refusal; no photic driving was seen; photoparoxysmal responses were absent. EVENTS: None ELECTROCARDIOGRAM: A single lead EKG showed an average rate of 84. IMPRESSION: Normal awake and asleep EEG CLINICAL COMMENT: An EEG without epileptiform discharges does not exclude the possibility of epilepsy. If the clinical suspicion of epilepsy remains, consider additional EEG recordings. Marisabel Banks MD Epilepsy Fellow [facility] Neurophysiology Service Blair Chen M.D., FACNS, FAAN, FAES Professor of Neurology, [facility] [employer] Director, [facility] Comprehensive Epilepsy Center Head, [facility] Neuro[facility] Lab Performing Organization Address City/State/Zipcode Phone Number [facility] * CT brain without IV contrast (01/20/2018 10:36 AM BREAKFAST SUPERVISOR) Specimen Narrative Performed At FINAL REPORT GE RIS CT Head without contrast CLINICAL HISTORY: Cerebral aneurysm, SAH, cerebral vasospasm eval TECHNIQUE: Contiguous axial images through the head without contrast. This exam was performed according to the departmental dose optimization program which includes automated exposure control, adjustment of the mA and/or kV according to the patient size, and/or use of an iterative reconstruction technique. 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 There is slightly decreased subarachnoid hemorrhage in the anterior interhemispheric fissure and splaying the septum pellucidum, the latter now demonstrating a layering hematocrit level. Scattered bilateral cerebral subarachnoid hemorrhage is also substantially decreased. Trace intraventricular hemorrhage is again seen without hydrocephalus. Allowing for metallic streak effect and the portable technique, no gross evidence of acute infarction is seen. Generalized parenchymal volume loss is again noted without midline shift. The skull remains intact. IMPRESSION: Since 01/17/2018, continued decrease in subarachnoid hemorrhage. Signed: Napoleon Dee MD Report Verified Date/Time:01/20/2018 10:40:53 Reading Location: [address] Neuro Reading Room Procedure Note Interface, External Ris In - 01/20/2018 10:43 AM BREAKFAST SUPERVISOR FINAL REPORT CT Head without contrast CLINICAL HISTORY: Cerebral aneurysm, SAH, cerebral vasospasm eval TECHNIQUE: Contiguous axial images through the head without contrast. This exam was performed according to the departmental dose optimization program which includes automated exposure control, adjustment of the mA and/or kV according to the patient size, and/or use of an iterative reconstruction technique. 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 There is slightly decreased subarachnoid hemorrhage in the anterior interhemispheric fissure and splaying the septum pellucidum, the latter now demonstrating a layering hematocrit level. Scattered bilateral cerebral subarachnoid hemorrhage is also substantially decreased. Trace intraventricular hemorrhage is again seen without hydrocephalus. Allowing for metallic streak effect and the portable technique, no gross evidence of acute infarction is seen. Generalized parenchymal volume loss is again noted without midline shift. The skull remains intact. IMPRESSION: Since 01/17/2018, continued decrease in subarachnoid hemorrhage. Signed: Napoleon Dee MD Report Verified Date/Time: 01/20/2018 10:40:53 Reading Location: [facility] B1 C013V Neuro Reading Room Performing Organization Address City/State/Zipcode Phone Number GE [employer] * Potassium (2018 5:12 PM BREAKFAST SUPERVISOR) Only the most recent of 5 results within the time period is included. Potassium 3.3 (L) 3.5 - 5.1 meq/L [facility] Specimen Blood Performing Organization Address City/State/Zipcode Phone Number [facility] [phone] [place] [address] * Transcranial Doppler Complete (TCD) (2018 11:02 AM BREAKFAST SUPERVISOR) Specimen Narrative Performed At Bladimir Egan MD 01/21/2018 10:27 AM GE RIS [facility] - Transcranial Doppler Report Patient Name: Bree Rios Date: 01/19/18 Referring physician: Indication:aSAH Mean Cerebral Blood Flow Velocities (MCBFVs) of the following arteries were insonated: R MCAR ACAR ICAR PCAR EC ICA R Opthalmic R Vertebral L MCAL ACAL ICAL PCAL DIRECTOR MARKETING ANALYTICS L Opthalmic L Vertebral BasilarL EC ICA Maximal estimated mean blood flow velocities (cm / sec): R EC ICA 15 L EC ICA 22 R Opthalmic L Opthalmic R MCA31 R JESSICA 89 R ICA 22 R DIRECTOR MARKETING ANALYTICS 20 L MCA 34 L JESSICA 34 L ICA33 L DIRECTOR MARKETING ANALYTICS R vertebral 17 L vertebral 20 Basilar 21 [place] (R MCA:R ECICA) 2.1 [place] (L MCA:L ECICA)1.6 Post bleed day #: Date: HCT: CVP (mmHg) BP: Clinical correlation recommended. Velocity Range Pinto Elevated velocity=90 - 119 cm/sec Mild wciumlboh=091 - 159 cm/sec Moderate bibctgopi=973 - 199 cm/sec .Severe vasospasm=? 200 cm/sec Interpretation: Interpretation: This is a complete TCD study in patient admitted withaSAH Per TCD velocity criteria, there is no vasospasm. Insonated intracranial vessels are patent with antegrade flow. Bladimir Egan MD Distillation Operator Helper of Neurology [facility] Performing Organization Address City/State/Zipcode Phone Number GE RIS * 2D Echo W/Doppler(CW/PW/Color) (01/18/2018 7:43 AM BREAKFAST SUPERVISOR) Ejection Fraction [facility] ECHO [facility]ART[facility] Specimen Narrative Performed At Transthoracic Echocardiography Report (TTE) [facility] ECHO [facility]ARTLAB Demographics [facility] Patient Name Zaire RIOS of Study01/18/2018 [id number] Male Visit Number [id number] Unknown [id number] Room [id number] Number Date of Birth4Referring Aye Hill Age73 year(s)SonographerPiyush Cardoza Interpreting Stan Bowen MD, MD Procedure Type of Study TTE procedure:2DECHO W DOPPLER(CW/PW/COLOR) (SHAHID) Indications:Sustained or non sustained Afib, SVT or VT. Clinical History HGB 15.3 HCT 44.3 % HTN PVD Height: 66 inches Weight: 81.65 kg (180 lbs) BSA: 1.91 m^2 BMI: 29.05 kg/m^2 HR: 109 bpm BP: 154/72 mmHg Summary The left ventricle is chamber size (by PSLAX dimension) is normal (male - LVIDd 4.2-5.8cm) . All of the LV segments contract normally . Estimated LVEF by qualitative assessment is normal (>60%) . Grade 1 diastolic dysfunction (impaired relaxation and low-normal LA pressure). Estimated peak systolic PA pressure is 40-45 mmHg . No significant pericardial effusion is visualized. Previous Study No prior exam available for comparison. Signature Findings Technical Quality: Technically adequate exam. Left Ventricle The left ventricle is chamber size (by PSLAX dimension) is normal (male - LVIDd 4.2-5.8cm) . Normal LV wall thickness. All of the LV segments contract normally . Global LV systolic function normal . Estimated LVEF by qualitative assessment is normal (>60%) . Grade 1 diastolic dysfunction (impaired relaxation and low-normal LA pressure). High (cardiac index >4 L/min/m2) cardiac output state at rest is noted. Left AtriumLA size is mildly enlarged (35-41 ml/m2) . Right VentricleThe right ventricular chamber size and systolic function are within normal limits. Right Atrium RA cavity size is mildly enlarged . Aortic Valve Mild AoV cusp thickening. AoV calcification primarily involves the right- coronary cusp(s). AoV cusp mobility is normal . No evidence of aortic stenosis. Mitral Valve Mild MV leaflet thickening. Mild mitral annular calcification. Tricuspid ValveMild tricuspid regurgitation. Estimated peak systolic PA pressure is 40-45 mmHg . Pulmonic Valve Normal PV structure and function. AortaAortic root size (Sinus of Valsalva diameter) is mildly dilated. 3.8 cm PericardiumNo significant pericardial effusion is visualized. IVC/SVC/PA/PV/PleuralThe estimated RA pressure by IVC dynamics 5-10mmHg . Chambers/Structures Left Atrium LA Volume: 70.31 ml LA Area: 23.69 cm^2 LA Vol. Index: 37 ml/m^2 Left Ventricle LVIDd: 4.52 cm LV Septum Diastolic: 0.95 cm LV PW Diastolic: 0.95 cm LVOT Diameter: 1.99 cm Right Atrium RA Vol. (Sngl Plane): 78.12 ml Right Ventricle TAPSE: 1.66 cm Aorta Ao Root S of Shawanda.: 3.8 cm Doppler/Quantitative Measurements Mitral Valve MV Peak E-Wave: 0.91 m/sMV Peak A-Wave: 1.12 m/s E/A Ratio: 0.81 Peak Gradient: 3.29 mmHg Deceleration Time: 225.2 msec MV Saeed. Peak: Tissue Doppler E' Lateral Velocity: 0.11 m/s E/E': 7.9 Aortic Valve Peak Velocity: 1.95 m/sMean Velocity: 1.36 m/s Peak Gradient: 15.19 mmHgMean Gradient: 8.38 mmHg AV Area (continuity): 2.21 cm^2 AV VTI: 38.47 cm AV DVI: 0.71 LVOT Peak Velocity: 1.29 m/s Peak Gradient: 6.68 mmHg Mean Velocity: 0.93 m/s Mean Gradient: 3.91 mmHg LVOT Diameter: 1.99 cmLVOT VTI: 27.38 cm LVOT Area: 3.11 cm^2LVOT SV:85.12 ml LVOT CO: 9.28 l/min LVOT CI: 4.86 l/min/m^2 Tricuspid Valve TR Velocity: 2.97 m/s TR Gradient: 35.35 mmHg Procedure Note Interface, External Ris In - 01/27/2018 12:49 PM BREAKFAST SUPERVISOR Transthoracic Echocardiography Report (TTE) Demographics Patient Name BREE RIOS Date of Study 01/18/2018 Gender Male Visit Number [id number] Race Unknown Room Number 2262 Number Date of 1945 Referring Physician Lui Hill Age 73 year(s) National Business Director Piyush Barrera Supervisor Cytogenetic Laboratory Chavo Cardoza Interpreting Jayro Bowen Physician MD Jhon Jeffery MD Procedure Type of Study TTE procedure:2DECHO W DOPPLER(CW/PW/COLOR) (SHAHID) Indications:Sustained or non sustained Afib, SVT or VT. Clinical History HGB 15.3 HCT 44.3 % HTN PVD Height: 66 inches Weight: 81.65 kg (180 lbs) BSA: 1.91 m^2 BMI: 29.05 kg/m^2 HR: 109 bpm BP: 154/72 mmHg Summary The left ventricle is chamber size (by PSLAX dimension) is normal (male - LVIDd 4.2-5.8cm) . All of the LV segments contract normally . Estimated LVEF by qualitative assessment is normal (>60%) . Grade 1 diastolic dysfunction (impaired relaxation and low-normal LA pressure). Estimated peak systolic PA pressure is 40-45 mmHg . No significant pericardial effusion is visualized. Previous Study No prior exam available for comparison. Signature Findings Technical Quality: Technically adequate exam. Left Ventricle The left ventricle is chamber size (by PSLAX dimension) is normal (male - LVIDd 4.2-5.8cm) . Normal LV wall thickness. All of the LV segments contract normally . Global LV systolic function normal . Estimated LVEF by qualitative assessment is normal (>60%) . Grade 1 diastolic dysfunction (impaired relaxation and low-normal LA pressure). High (cardiac index >4 L/min/m2) cardiac output state at rest is noted. Left Atrium LA size is mildly enlarged (35-41 ml/m2) . Right Ventricle The right ventricular chamber size and systolic function are within normal limits. Right Atrium RA cavity size is mildly enlarged . Aortic Valve Mild AoV cusp thickening. AoV calcification primarily involves the right- coronary cusp(s). AoV cusp mobility is normal . No evidence of aortic stenosis. Mitral Valve Mild MV leaflet thickening. Mild mitral annular calcification. Tricuspid Valve Mild tricuspid regurgitation. Estimated peak systolic PA pressure is 40-45 mmHg . Pulmonic Valve Normal PV structure and function. Aorta Aortic root size (Sinus of Valsalva diameter) is mildly dilated. 3.8 cm Pericardium No significant pericardial effusion is visualized. IVC/SVC/PA/PV/Pleural The estimated RA pressure by IVC dynamics 5-10mmHg . Chambers/Structures Left Atrium LA Volume: 70.31 ml LA Area: 23.69 cm^2 LA Vol. Index: 37 ml/m^2 Left Ventricle LVIDd: 4.52 cm LV Septum Diastolic: 0.95 cm LV PW Diastolic: 0.95 cm LVOT Diameter: 1.99 cm Right Atrium RA Vol. (Sngl Plane): 78.12 ml Right Ventricle TAPSE: 1.66 cm Aorta Ao Root S of Shawanda.: 3.8 cm Doppler/Quantitative Measurements Mitral Valve MV Peak E-Wave: 0.91 m/s MV Peak A-Wave: 1.12 m/s E/A Ratio: 0.81 Peak Gradient: 3.29 mmHg Deceleration Time: 225.2 msec MV Saeed. Peak: Tissue Doppler E' Lateral Velocity: 0.11 m/s E/E': 7.9 Aortic Valve Peak Velocity: 1.95 m/s Mean Velocity: 1.36 m/s Peak Gradient: 15.19 mmHg Mean Gradient: 8.38 mmHg AV Area (continuity): 2.21 cm^2 AV VTI: 38.47 cm AV DVI: 0.71 LVOT Peak Velocity: 1.29 m/s Peak Gradient: 6.68 mmHg Mean Velocity: 0.93 m/s Mean Gradient: 3.91 mmHg LVOT Diameter: 1.99 cm LVOT VTI: 27.38 cm LVOT Area: 3.11 cm^2 LVOT SV:85.12 ml LVOT CO: 9.28 l/min LVOT CI: 4.86 l/min/m^2 Tricuspid Valve TR Velocity: 2.97 m/s TR Gradient: 35.35 mmHg Performing Organization Address City/[facility] Phone Number [facility] * Phosphorus (01/18/2018 3:09 AM BREAKFAST SUPERVISOR) Phosphorus 2.1 (L) 2.3 - 4.7 mg/dL [facility] Specimen Blood Performing Organization Address City/[facility] Phone Number [facility] [address] [place] [address] [facility] * CT brain without IV contrast portable (01/17/2018 8:43 PM BREAKFAST SUPERVISOR) Only the most recent of 2 results within the time period is included. Specimen Narrative Performed At FINAL REPORT [facility] CT BRAIN WITHOUT IV CONTRAST - PORTABLE CLINICAL INDICATION:head trauma COMPARISON: January 16, 2018 TECHNIQUE:Noncontrast axial CT imaging of the brain and skull. DOSE REDUCTION: Dose modulation, iterative reconstruction, and/or weight-based adjustment of the mA/kV was utilized to reduce the radiation dose to as low as reasonably achievable. FINDINGS: Status post coiling of anterior to indicating artery aneurysm. No new intracranial hemorrhage. Expected interval resolution of scattered subarachnoid hemorrhage at the frontal convexities. Minimal hypoattenuation of the right frontal pole (image 19) may be secondary to beam hardening artifact, although, small evolving infarct is also within the differential, to be followed on subsequent imaging. No hydrocephalus or interval ventricular enlargement. Previously noted intraventricular hemorrhage is now isoattenuating and less conspicuous. Dense atherosclerotic calcification of the posterior circulation. Orbits are within normal limits. No obstructive paranasal sinus disease. IMPRESSION: Expected post procedure findings status post coiling of anterior commuting artery aneurysm. No interval detrimental change Signed: Victoria Delcid MD Report Verified Date/Time:01/17/2018 20:44:45 Reading Location: [address] Neuro Reading Room Procedure Note Interface, External Ris In - 01/17/2018 8:47 PM BREAKFAST SUPERVISOR FINAL REPORT CT BRAIN WITHOUT IV CONTRAST - PORTABLE CLINICAL INDICATION: head trauma COMPARISON: January 16, 2018 TECHNIQUE: Noncontrast axial CT imaging of the brain and skull. DOSE REDUCTION: Dose modulation, iterative reconstruction, and/or weight-based adjustment of the mA/kV was utilized to reduce the radiation dose to as low as reasonably achievable. FINDINGS: Status post coiling of anterior to indicating artery aneurysm. No new intracranial hemorrhage. Expected interval resolution of scattered subarachnoid hemorrhage at the frontal convexities. Minimal hypoattenuation of the right frontal pole (image 19) may be secondary to beam hardening artifact, although, small evolving infarct is also within the differential, to be followed on subsequent imaging. No hydrocephalus or interval ventricular enlargement. Previously noted intraventricular hemorrhage is now isoattenuating and less conspicuous. Dense atherosclerotic calcification of the posterior circulation. Orbits are within normal limits. No obstructive paranasal sinus disease. IMPRESSION: Expected post procedure findings status post coiling of anterior commuting artery aneurysm. No interval detrimental change Signed: Victoria Delcid MD Report Verified Date/Time: 01/17/2018 20:44:45 Reading Location: [address] Neuro Reading Room Performing Organization Address City/[facility] Phone Number [facility] * Transcranial Doppler Complete (TCD) (01/17/2018 6:10 PM BREAKFAST SUPERVISOR) Specimen Narrative Performed At Juan Malone MD 01/17/20187:00 PM [facility] - Transcranial Doppler Report Patient Name: Bree Rios Date: 01/16/18 Referring physician: Indication:aSAH Mean Cerebral Blood Flow Velocities (MCBFVs) of the following arteries were insonated: R MCAR ACAR ICAR PCAR EC ICA R Opthalmic R Vertebral L MCAL ACAL ICAL PCAL DIRECTOR MARKETING ANALYTICS L Opthalmic L Vertebral BasilarL EC ICA Maximal estimated mean blood flow velocities (cm / sec): R EC ICA 25 L EC ICA 43 R Opthalmic L Opthalmic R MCA30 R JESSICA 70 R ICA 25 R DIRECTOR MARKETING ANALYTICS 20 L MCA 32 L JESSICA 44 L ICA27 L DIRECTOR MARKETING ANALYTICS 28 R vertebral 20 L vertebral 14 Basilar 26 [place] (R MCA:R ECICA) 1.21 [place] (L MCA:L ECICA)1.43 Post bleed day #: Date: HCT: CVP (mmHg) BP: Clinical correlation recommended. Velocity Range Pinto Elevated velocity=90 - 119 cm/sec Mild vvicehdyk=502 - 159 cm/sec Moderate qtybzuijj=115 - 199 cm/sec .Severe vasospasm=? 200 cm/sec Interpretation: This is a complete TCD study in patient admitted withaSAH Per TCD velocity criteria, there is no vasospasm. Insonated intracranial vessels are patent with antegrade flow. Performing Organization Address City/[facility] Phone Number [facility] * TRANSFUSION SERVICE REPORT - SCAN (01/17/2018 6:03 PM BREAKFAST SUPERVISOR) Only the most recent of 2 results within the time period is included. Narrative Performed At * Prepare Leuko-Red PLT (01/16/2018 11:54 PM BREAKFAST SUPERVISOR) Only the most recent of 2 results within the time period is included. Unit ABO B Pos SAFETRACE TX UNIT NUMBER [id number] SAFETRACE TX Status TRANSFUSED SAFETRACE TX Blood Bank Product PLATELETS SAFETRACE TX PRODUCT CODE [id number] SAFETRACE TX Status CANCELED SAFETRACE TX Blood Bank Product PLATELETS SAFETRACE TX Specimen Blood Performing Organization Address [facility] Phone Number SAFETRACE TX * Transcranial Doppler Complete (TCD) (01/16/2018 6:17 PM BREAKFAST SUPERVISOR) Specimen Narrative Performed At Juan Malone MD 01/17/20187:02 PM GE RIS [facility] - Transcranial Doppler Report Patient Name: Bree Rios Date: 01/17/18 Referring physician: Indication:aSAH Mean Cerebral Blood Flow Velocities (MCBFVs) of the following arteries were insonated: R MCAR ACAR ICAR PCAR EC ICA R Opthalmic R Vertebral L MCAL ACAL ICAL PCAL DIRECTOR MARKETING ANALYTICS L Opthalmic L Vertebral BasilarL EC ICA Maximal estimated mean blood flow velocities (cm / sec): R EC ICA 33 L EC ICA 26 R Opthalmic L Opthalmic R MCA37 R JESSICA 83 R ICA 33 R DIRECTOR MARKETING ANALYTICS 23 L MCA 32 L JESSICA 45 L ICA42 L DIRECTOR MARKETING ANALYTICS 26 R vertebral 18 L vertebral 26 Basilar 25 [place] (R MCA:R ECICA) 1.1 [place] (L MCA:L ECICA)1.35 Post bleed day #: Date: HCT: CVP (mmHg) BP: Clinical correlation recommended. Velocity Range Pinto Elevated velocity=90 - 119 cm/sec Mild kgotsdjxu=771 - 159 cm/sec Moderate jnkwthtkm=270 - 199 cm/sec .Severe vasospasm=? 200 cm/sec Interpretation: Interpretation: This is a complete TCD study in patient admitted withaSAH Per TCD velocity criteria, there is no vasospasm. Insonated intracranial vessels are patent with antegrade flow. Performing Organization Address City/[facility] Phone Number GE RIS * Transfuse Leuko-Red PLT (01/16/2018 11:18 AM BREAKFAST SUPERVISOR) Only the most recent of 2 results within the time period is included. * Troponin I (01/15/2018 5:50 PM BREAKFAST SUPERVISOR) Only the most recent of 2 results within the time period is included. Troponin I <0.01 0.00 - 0.03 ng/mL [facility] Specimen Blood Narrative Performed At Troponin I (TnI) levels must be interpreted in the context of the presenting [facility] symptoms and the clinical findings. Elevated TnI levels indicate myocardial [facility] damage, but are not specific for ischemic heart disease. Elevated TnI levels are seen in patients with other cardiac conditions (including myocarditis and congestive heart failure), and slight TnI elevations occur in patients with other conditions, including sepsis, renal failure, acidosis, acute neurological disease, and persistent tachyarrhythmia. Performing Organization Address City/State/Zipcode Phone Number [facility] [address] [place] [address] [facility] * [place] cerebral 4 vessel angiogram (01/15/2018 3:34 PM BREAKFAST SUPERVISOR) Specimen Narrative Performed At FINAL REPORT [employer] DATE: 01/15/2018 NAME: BREE RIOS ATTENDING: Carlos Wise MD REGISTRAR MUSEUM: Noe Curiel MD PREOPERATIVE DIAGNOSIS: Ruptured anterior communicating artery aneurysm POSTOPERATIVE DIAGNOSIS: Ruptured anterior communicating artery aneurysm PROCEDURE PERFORMED: 1. Diagnostic Cerebral and Cervical Angiogram 2. Coiling of ruptured anterior communicating artery aneurysm, >1cm 3. Rianna CT brain ANESTHESIA: GETA COMPLICATIONS: None ESTIMATED BLOOD LOSS: 30 cc ARTERIAL VESSELS STUDIED: *Left subclavian artery x 1 *Brachiocephalic artery x 1 *Right vertebral artery x 1 *Right common carotid artery x 2 *Left common carotid artery x 2 *Left internal carotid artery x 17 * - Rotational 3D DSA x 1 *Right common femoral artery x1 MATERIALS EMPLOYED: 1. AXS Infinity LS 2. AXS Catalyst 5 3. SL-10 microcatheter 5. 4 German Berenstein catheter 6. Bentson guidewire 7. Terumo 0.035 LT glidewire 9. Synchro standard 0.014 microwire 10. Target 360 SOFT 8mm x 20 cm 11. TargetXL 360 SOFT 7 mm x 20 cm 12. TargetXL 360 SOFT 6 mm x 20 cm (2) 13. TargetXL 360 SOFT 4 mm x 8 cm 14. Target 360 ULTRA 3 mm x 8 cm (2) 15. Target 360 ULTRA 2 mm x 4 cm 16. 6/7 Fr Mynx device INDICATIONS: The patient is a 72-year-old man with past medical history of hypertension, hyperlipidemia, previously repaired abdominal aortic aneurysm, severe peripheral arterial and coronary artery disease with multiple peripheral and cardiac stents who presented with acute onset headache. Subsequent CT and CT angiography consistent with a ruptured anterior communicating artery aneurysm. Patient planned for diagnostic cerebral angiography with endovascular treatment. The indications for the procedure as well as the risks, benefits and alternatives to the procedure were discussed with the patient and the family. The risks discussed included but were not limited to stroke, intracranial hemorrhage, injury to the cervical femoral or aortic vessels, contrast reaction, kidney to toxicity, groin hematoma, weakness paralysis and even . They demonstrated understanding of the risk benefit profile and agreed to proceed. PROCEDURE: After appropriate consent was obtained, the patient was brought to the angiographic suite and cardiopulmonary monitoring was placed. The anesthesia team performed general anesthesia. After the appropriate lines were in place, a timeout was performed. A Rianna CT brain was performed, reconstructed and interpreted at an outside workstation by the attending Dr. Wise. As there was no evidence of worsened hydrocephalus, no EVD was placed. Both groins were prepped and draped in the usual sterile fashion. After administration of 10 mL of 2% lidocaine, a micropuncture needle was used to perform a single wall puncture of the right common femoral artery, a micropuncture sheath was inserted, and an angled DSA angiogram was performed through the sheath. Once good location of the puncture site was confirmed, a 5 German x 25 cm sheath was inserted over a stiffTerumo glide wire in order to pass the severe tortuosity in the iliac artery. An Amplatz exchange length wire was inserted and the 5F sheath removed and the 6F Infinity was advanced over the Amplatz into the descending aorta, the wire was removed, the sheath was back bled and was maintained on heparinized saline flush throughout the remainder of the procedure. Using coaxial technique, a preflushed 5 German x 125cm diagnostic catheter on constant heparinized saline flush was advanced over the Glidewire into the descending aorta, the Glidewire was removed, the catheter back bled, flushed in usual fashion and the catheter was maintained on heparinized flushed throughout duration of the case. Using coaxial technique, the catheter was advanced into the aortic arch and with the aid of roadmapping, digital fluoroscopy, and careful guidewire manipulation, the right common carotid, right internal carotid, right vertebral artery, left common carotid, left internal carotid, left subclavian were selectively catheterized. Upon each successive catheterization, digital subtraction angiography using the appropriate rate and volume of contrast in multiple projections was performed. While in the left internal carotid artery, a rotational 3-D DSA angiogram was performed with reconstruction and interpretation performed at an outside workstation by the attending physician Dr. Carlos Wise MD. These images were used to perform magnified obliques. FINDINGS: RIGHT COMMON FEMORAL ARTERY (DSA, PA) Tortuous, heavily atherosclerotic and calcified common femoral artery with location of the puncture site above the bifurcation and below markers of the inguinal ligament. RIGHT COMMON CAROTID ARTERY (DSA, PA, LATERAL, CERVICAL) The distal cervical common carotid as well as the origins of the right internal and external carotid arteries are widely patent without evidence of ulceration or stenosis. RIGHT COMMON CAROTID ARTERY (DSA, PA, LATERAL, HEAD) Normal distal cervical, petrous, cavernous and supraclinoid internal carotid artery with physiological filling of the MCA and JESSICA branches. There is reflux opacification of the anterior communicating artery and contralateral anterior cerebral artery with with faint filling to the neck of the anterior commuting artery aneurysm identified on CT angiography but the body and extent of the aneurysm is not well delineated. There is a small outpouching in the expected area of the posterior beginning artery that likely represents an infundibulum. Capillary phase and venous phase are unremarkable. No other vascular lesions are seen. There is no significant atherosclerosis or stenosis. The venous phase demonstrates patent transverse and sigmoid sinuses. BRACHIOCEPHALIC ARTERY (DSA, PA, ROADMAP) There is normal course and caliber of the subclavian artery. There is a patent left vertebral artery origin, and visualized origins of the internal mamillary artery, thyrocervical and costocervical trunks. RIGHT VERTEBRAL ARTERY (DSA, PA, LATERAL, MAGNIFIED OBLIQUE) Unremarkable distal cervical and intracranial vertebral artery with physiological filling of the basilar artery and its distal branches. There is normal filling of the ipsilateral PICA, AICAs, SCAs and family practice medical doctor. There is contrast reflux into the left vertebral artery with opacification of the left PICA. No aneurysms or other vascular lesions are seen. The capillary phase and venous phase are unremarkable. LEFT COMMON CAROTID ARTERY (DSA, PA, LATERAL, CERVICAL) The distal cervical common carotid as well as the origins of the left internal and external carotid arteries are widely patent without evidence of ulceration or stenosis. LEFT INTERNAL CAROTID ARTERY (DSA, PA, LATERAL, MAGNIFIED OBLIQUE) There is a 11 x 8 x 6 mm saccular aneurysm arising from the anterior communicating artery with a 4mm neck. Post-treatment, the dome is completely occluded and there is a 2mm residual neck and stagnation of contrast in the small aneurysm residual. Normal distal cervical, petrous, cavernous and supraclinoid internal carotid artery with physiological filling of the MCA and JESSICA branches. Capillary phase and venous phase are unremarkable. No other vascular lesions are seen. There is no significant atherosclerosis or stenosis. The venous phase demonstrates patent transverse sinuses. LEFT SUBCLAVIAN ARTERY (DSA, PA) There is normal course and caliber of the subclavian artery with physiological filling of its distal branches. The left vertebral artery is occluded at its origin and not visualized. ENDOVASCULAR INTERVENTION: Using coaxial technique the Infinity long sheath was advanced into the left internal carotid artery over 5Fr Charles-2 and Glidewire with the aid of fluoroscopy, roadmapping, and guidewire manipulation. We then obtained satisfactory views to visualize the neck, body, dome of the aneurysm. We then proceeded to advance a CAT5 intermediate catheter, SL-10 microcatheter, and a Synchro microwire through the left internal carotid artery. The CAT 5 was stationed in the petrous carotid and the synchro and SL10 were advanced into the left anterior cerebral artery and then carefully advanced the microcatheter into the body of the aneurysm. After the second coil placement, 2000 units of heparin were administered, and subsequently heparin was administered after each subsequent coil for a total of 7000 units. Sequentially we placed the following coils within the aneurysm with intervening guiding catheter angiograms between each coil placement. 1. Target 360 SOFT 8mm x 20 cm 2. TargetXL 360 SOFT 7 mm x 20 cm 3. TargetXL 360 SOFT 6 mm x 20 cm (2) 5. TargetXL 360 SOFT 4 mm x 8 cm 6. Target 360 ULTRA 3 mm x 8 cm (2) 8. Target 360 ULTRA 2 mm x 4 cm Each of the intermediate catheter angiograms performed after coil deployment demonstrated patency of the parent artery and progressively improved embolization of the aneurysm. After satisfactory coil placement a whole head angiogram was performed with a tiny residual filling near the aneurysm neck, patency of the parent vessel, and no evidence of complication. The sheath was removed and hemostasis achieved with a Mynx device. The patient tolerated the procedure well, was extubated and unchanged neurological status without groin hematoma and with good distal lower extremity pulses. The patient was transferred to the neurological intensive care unit to be monitored as per protocol. IMPRESSION 1. 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 FACULTY ATTESTATION: I, Carlos Wise M.D., was present for the entirety of the procedure. I performed or directly supervised all aspects of the procedure. I performed all critical aspects of the case. I interpreted the images and reported results. Signed: Carlos Wise MD Report Verified Date/Time:01/16/2018 15:52:50 Reading Location: [facility] Y026 Neuro Angio Reading Room Procedure Note Interface, External Ris In - 01/16/2018 3:55 PM BREAKFAST SUPERVISOR FINAL REPORT DATE: 01/15/2018 NAME: BREE RIOS ATTENDING: Carlos Wise MD REGISTRAR MUSEUM: Noe Curiel MD PREOPERATIVE DIAGNOSIS: Ruptured anterior communicating artery aneurysm POSTOPERATIVE DIAGNOSIS: Ruptured anterior communicating artery aneurysm PROCEDURE PERFORMED: 1. Diagnostic Cerebral and Cervical Angiogram 2. Coiling of ruptured anterior communicating artery aneurysm, >1cm 3. Rianna CT brain ANESTHESIA: GETA COMPLICATIONS: None ESTIMATED BLOOD LOSS: 30 cc ARTERIAL VESSELS STUDIED: *Left subclavian artery x 1 *Brachiocephalic artery x 1 *Right vertebral artery x 1 *Right common carotid artery x 2 *Left common carotid artery x 2 *Left internal carotid artery x 17 * - Rotational 3D DSA x 1 *Right common femoral artery x1 MATERIALS EMPLOYED: 1. AXS Infinity LS 2. AXS Catalyst 5 3. SL-10 microcatheter 5. 4 German Berenstein catheter 6. Bentson guidewire 7. Terumo 0.035 LT glidewire 9. Synchro standard 0.014 microwire 10. Target 360 SOFT 8mm x 20 cm 11. TargetXL 360 SOFT 7 mm x 20 cm 12. TargetXL 360 SOFT 6 mm x 20 cm (2) 13. TargetXL 360 SOFT 4 mm x 8 cm 14. Target 360 ULTRA 3 mm x 8 cm (2) 15. Target 360 ULTRA 2 mm x 4 cm 16. 6/7 Fr Mynx device INDICATIONS: The patient is a 72-year-old man with past medical history of hypertension, hyperlipidemia, previously repaired abdominal aortic aneurysm, severe peripheral arterial and coronary artery disease with multiple peripheral and cardiac stents who presented with acute onset headache. Subsequent CT and CT angiography consistent with a ruptured anterior communicating artery aneurysm. Patient planned for diagnostic cerebral angiography with endovascular treatment. The indications for the procedure as well as the risks, benefits and alternatives to the procedure were discussed with the patient and the family. The risks discussed included but were not limited to stroke, intracranial hemorrhage, injury to the cervical femoral or aortic vessels, contrast reaction, kidney to toxicity, groin hematoma, weakness paralysis and even . They demonstrated understanding of the risk benefit profile and agreed to proceed. PROCEDURE: After appropriate consent was obtained, the patient was brought to the angiographic suite and cardiopulmonary monitoring was placed. The anesthesia team performed general anesthesia. After the appropriate lines were in place, a timeout was performed. A Rianna CT brain was performed, reconstructed and interpreted at an outside workstation by the attending Dr. Wise. As there was no evidence of worsened hydrocephalus, no EVD was placed. Both groins were prepped and draped in the usual sterile fashion. After administration of 10 mL of 2% lidocaine, a micropuncture needle was used to perform a single wall puncture of the right common femoral artery, a micropuncture sheath was inserted, and an angled DSA angiogram was performed through the sheath. Once good location of the puncture site was confirmed, a 5 German x 25 cm sheath was inserted over a stiff Terumo glide wire in order to pass the severe tortuosity in the iliac artery. An Amplatz exchange length wire was inserted and the 5F sheath removed and the 6F Infinity was advanced over the Amplatz into the descending aorta, the wire was removed, the sheath was back bled and was maintained on heparinized saline flush throughout the remainder of the procedure. Using coaxial technique, a preflushed 5 German x 125cm diagnostic catheter on constant heparinized saline flush was advanced over the Glidewire into the descending aorta, the Glidewire was removed, the catheter back bled, flushed in usual fashion and the catheter was maintained on heparinized flushed throughout duration of the case. Using coaxial technique, the catheter was advanced into the aortic arch and with the aid of roadmapping, digital fluoroscopy, and careful guidewire manipulation, the right common carotid, right internal carotid, right vertebral artery, left common carotid, left internal carotid, left subclavian were selectively catheterized. Upon each successive catheterization, digital subtraction angiography using the appropriate rate and volume of contrast in multiple projections was performed. While in the left internal carotid artery, a rotational 3-D DSA angiogram was performed with reconstruction and interpretation performed at an outside workstation by the attending physician Dr. Carlos Wise MD. These images were used to perform magnified obliques. FINDINGS: RIGHT COMMON FEMORAL ARTERY (DSA, PA) Tortuous, heavily atherosclerotic and calcified common femoral artery with location of the puncture site above the bifurcation and below markers of the inguinal ligament. RIGHT COMMON CAROTID ARTERY (DSA, PA, LATERAL, CERVICAL) The distal cervical common carotid as well as the origins of the right internal and external carotid arteries are widely patent without evidence of ulceration or stenosis. RIGHT COMMON CAROTID ARTERY (DSA, PA, LATERAL, HEAD) Normal distal cervical, petrous, cavernous and supraclinoid internal carotid artery with physiological filling of the MCA and JESSICA branches. There is reflux opacification of the anterior communicating artery and contralateral anterior cerebral artery with with faint filling to the neck of the anterior commuting artery aneurysm identified on CT angiography but the body and extent of the aneurysm is not well delineated. There is a small outpouching in the expected area of the posterior beginning artery that likely represents an infundibulum. Capillary phase and venous phase are unremarkable. No other vascular lesions are seen. There is no significant atherosclerosis or stenosis. The venous phase demonstrates patent transverse and sigmoid sinuses. BRACHIOCEPHALIC ARTERY (DSA, PA, ROADMAP) There is normal course and caliber of the subclavian artery. There is a patent left vertebral artery origin, and visualized origins of the internal mamillary artery, thyrocervical and costocervical trunks. RIGHT VERTEBRAL ARTERY (DSA, PA, LATERAL, MAGNIFIED OBLIQUE) Unremarkable distal cervical and intracranial vertebral artery with physiological filling of the basilar artery and its distal branches. There is normal filling of the ipsilateral PICA, AICAs, SCAs and family practice medical doctor. There is contrast reflux into the left vertebral artery with opacification of the left PICA. No aneurysms or other vascular lesions are seen. The capillary phase and venous phase are unremarkable. LEFT COMMON CAROTID ARTERY (DSA, PA, LATERAL, CERVICAL) The distal cervical common carotid as well as the origins of the left internal and external carotid arteries are widely patent without evidence of ulceration or stenosis. LEFT INTERNAL CAROTID ARTERY (DSA, PA, LATERAL, MAGNIFIED OBLIQUE) There is a 11 x 8 x 6 mm saccular aneurysm arising from the anterior communicating artery with a 4mm neck. Post-treatment, the dome is completely occluded and there is a 2mm residual neck and stagnation of contrast in the small aneurysm residual. Normal distal cervical, petrous, cavernous and supraclinoid internal carotid artery with physiological filling of the MCA and JESSICA branches. Capillary phase and venous phase are unremarkable. No other vascular lesions are seen. There is no significant atherosclerosis or stenosis. The venous phase demonstrates patent transverse sinuses. LEFT SUBCLAVIAN ARTERY (DSA, PA) There is normal course and caliber of the subclavian artery with physiological filling of its distal branches. The left vertebral artery is occluded at its origin and not visualized. ENDOVASCULAR INTERVENTION: Using coaxial technique the Infinity long sheath was advanced into the left internal carotid artery over 5Fr Charles-2 and Glidewire with the aid of fluoroscopy, roadmapping, and guidewire manipulation. We then obtained satisfactory views to visualize the neck, body, dome of the aneurysm. We then proceeded to advance a CAT5 intermediate catheter, SL-10 microcatheter, and a Synchro microwire through the left internal carotid artery. The CAT 5 was stationed in the petrous carotid and the synchro and SL10 were advanced into the left anterior cerebral artery and then carefully advanced the microcatheter into the body of the aneurysm. After the second coil placement, 2000 units of heparin were administered, and subsequently heparin was administered after each subsequent coil for a total of 7000 units. Sequentially we placed the following coils within the aneurysm with intervening guiding catheter angiograms between each coil placement. 1. Target 360 SOFT 8mm x 20 cm 2. TargetXL 360 SOFT 7 mm x 20 cm 3. TargetXL 360 SOFT 6 mm x 20 cm (2) 5. TargetXL 360 SOFT 4 mm x 8 cm 6. Target 360 ULTRA 3 mm x 8 cm (2) 8. Target 360 ULTRA 2 mm x 4 cm Each of the intermediate catheter angiograms performed after coil deployment demonstrated patency of the parent artery and progressively improved embolization of the aneurysm. After satisfactory coil placement a whole head angiogram was performed with a tiny residual filling near the aneurysm neck, patency of the parent vessel, and no evidence of complication. The sheath was removed and hemostasis achieved with a Mynx device. The patient tolerated the procedure well, was extubated and unchanged neurological status without groin hematoma and with good distal lower extremity pulses. The patient was transferred to the neurological intensive care unit to be monitored as per protocol. IMPRESSION 1. 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 FACULTY ATTESTATION: I, Carlos Wise M.D., was present for the entirety of the procedure. I performed or directly supervised all aspects of the procedure. I performed all critical aspects of the case. I interpreted the images and reported results. Signed: Carlos Wise MD Report Verified Date/Time: 01/16/2018 15:52:50 Reading Location: [facility] Y026 Neuro Angio Reading Room Performing Organization Address City/[facility] Cent[facility]ode Phone Number GE RIS * POC ACTIVATED CLOTTING TIME (01/15/2018 3:10 PM BREAKFAST SUPERVISOR) Activated Clotting Time 219Comment: [facility] sec [address] Specimen Blood Performing Organization Address [facility] Phone Number [address] * Platelet Aggregation: Function Screen (01/15/2018 9:07 AM BREAKFAST SUPERVISOR) Weak ADP 41 (L) 60 - 91 % [facility] Plt. Function Screen 40-49% indicates moderate [facility] Interpretation platelet dysfunction [facility] Pathologist: Marjorie Buckner MD [facility] (electronic signature) [facility] Platelets 174 150 - 450 K/CU MM [facility] Specimen Blood Narrative Performed At Platelet Function Screen results may be falsely low with platelet counts [facility] <100,000/cu mm. [facility] Performing Organization Address [facility] Phone Number [address] * Urinalysis w/ Microscopic (01/15/2018 5:22 AM BREAKFAST SUPERVISOR) Color, UA Light Yellow [facility] Clarity, UA Clear [facility] Specific [place], UA 1.010 1.001 - 1.035 [facility] pH, UA 8.0 5.0 - 8.0 [facility] Protein, UA Negative Negative [facility] Glucose, UA Negative Negative [facility] Ketones, UA Negative Negative [facility] Bilirubin, UA Negative Negative [facility] Blood, UA Negative Negative [facility] Nitrite, UA Negative Negative [facility] Leukocytes, UA Negative Negative [facility] Urobilinogen, UA 0.2 0.2 - 1.0 mg/dL [facility] RBC, UA 0 /HPF [facility] WBC, UA 0 /HPF [facility] Specimen Source [facility] Specimen Urine Performing Organization Address City/[facility] [facility] Phone Number [address] * aPTT (01/15/2018 1:11 AM BREAKFAST SUPERVISOR) PTT 29.2 22.5 - 36.0 seconds [facility] Specimen Blood Performing Organization Address City/[facility] Phone Number [address] * Prothrombin time/INR (01/15/2018 1:11 AM BREAKFAST SUPERVISOR) Protime 14.2 11.7 - 14.7 seconds [facility] INR 1.1 <=5.9 [facility] Specimen Blood Narrative Performed At RECOMMENDED COUMADIN/WARFARIN INR THERAPY RANGES [facility] STANDARD DOSE: 2.0 - 3.0 Includes: PROPHYLAXIS for venous thrombosis, [facility] systemic embolization; TREATMENT for venous thrombosis and/or pulmonary embolus. HIGH RISK: Target INR is 2.5-3.5 for patients with mechanical heart valves. Performing Organization Address City/[facility] Phone Number [facility] [address] [place] [address] [facility] * Type and screen, automated (01/15/2018 12:26 AM BREAKFAST SUPERVISOR) ABO/RH AUTOMATED (BEAKER) B POSITIVE [facility] Ab Scrn NEGATIVE [facility] Specimen Blood Performing Organization Address City/State/Zipcode Phone Number [facility] [address] [place] [address] [facility] * CTA carotid (01/14/2018 11:58 PM BREAKFAST SUPERVISOR) Specimen Narrative Performed At FINAL REPORT [facility] CLINICAL HISTORY: Intracranial hemorrhage TECHNIQUE: Initially, noncontrast head CT images were performed. Contiguous contrast-enhanced axial images through the neck followed by axial images through the head with coronal and sagittal reformations to assess the arterial circulation. 3-D reconstructions were performed using a volume rendered technique separately on a workstation. This exam was performed according to the departmental dose optimization program which includes automated exposure control, adjustment of the mA and/or kV according to the patient size, and/or use of an iterative reconstruction technique. COMPARISON: None available FINDINGS: Extensive subarachnoid hemorrhage within the suprasellar cistern extending into the interhemispheric fissure, as well as the prepontine and interpeduncular cistern extending into the bilateral sylvian fissures. There is no definite intraventricular hemorrhage. Intracranial vascular calcifications. Chronic microvascular ischemic changes. Lucency in the left subinsular region without transcortical extension may be related to chronic microvascular ischemic changes however acute infarction cannot be excluded. Ventricles are normal in size. Subcutaneous soft tissue stranding over the left supraorbital region may represent contusion, correlate clinically. Paranasal sinuses and mastoid air cells are clear. CTA head: Mild stenosis of the bilateral V4 vertebral artery secondary to atherosclerosis. The basilar and bilateral posterior cerebral arteries are patent. Atherosclerotic calcifications of the bilateral carotid siphons resulting in mild flow-limiting stenosis in the supraclinoid segments. The bilateral middle cerebral arteries are patent. 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 The neck measures approximately 4 mm. The bilateral anterior cerebral arteries are patent. CTA neck: The major intradural venous sinuses are patent. Common origin of the right brachiocephalic and left common carotid artery. The left vertebral artery originates from the aortic arch. Right dominant vertebrobasilar system. There is no stenosis of the proximal right internal carotid artery by NASCET criteria.Retropharyngeal course of the right internal carotid artery. There is no stenosis of the proximal left internal carotid artery by NASCET criteria. Mild stenosis of the origin of the right vertebral artery. Otherwise the vertebral arteries in the neck are patent. There are dorsal spondylitic changes in the cervical spine. There are scattered subcentimeter lymph nodes in the neck. Soft tissues of the neck are normal. The visualized lung apices are clear. IMPRESSION: CT head: Extensive subarachnoid hemorrhage within the suprasellar cistern extending into the interhemispheric fissure, as well as the prepontine and interpeduncular cistern extending into the bilateral sylvian fissures. Lucency in the left subinsular region without transcortical extension may be related to chronic microvascular ischemic changes however acute infarction cannot be excluded. subcutaneous soft tissue stranding over the left supraorbital region may represent contusion, correlate clinically. 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 The neck measures approximately 4 mm. Mild stenosis of the V4 segments of the bilateral vertebral arteries and bilateral supraclinoid internal carotid arteries secondary to atherosclerosis. CTA neck: Mild stenosis of the origin of the right vertebral artery otherwise there is no evidence of hemodynamically significant stenosis in the cervical carotid or vertebral arteries by NASCET criteria. The findings were discussed with nurse on 7S5 at the time of dictation who will relay them to the physician. Signed: Kaylynn Lawrence MD Report Verified Date/Time:01/15/2018 02:09:39 Reading Location: [address] Neuro Reading Room Procedure Note Interface, External Ris In - 01/15/2018 2:11 AM BREAKFAST SUPERVISOR FINAL REPORT CLINICAL HISTORY: Intracranial hemorrhage TECHNIQUE: Initially, noncontrast head CT images were performed. Contiguous contrast-enhanced axial images through the neck followed by axial images through the head with coronal and sagittal reformations to assess the arterial circulation. 3-D reconstructions were performed using a volume rendered technique separately on a workstation. This exam was performed according to the departmental dose optimization program which includes automated exposure control, adjustment of the mA and/or kV according to the patient size, and/or use of an iterative reconstruction technique. COMPARISON: None available FINDINGS: Extensive subarachnoid hemorrhage within the suprasellar cistern extending into the interhemispheric fissure, as well as the prepontine and interpeduncular cistern extending into the bilateral sylvian fissures. There is no definite intraventricular hemorrhage. Intracranial vascular calcifications. Chronic microvascular ischemic changes. Lucency in the left subinsular region without transcortical extension may be related to chronic microvascular ischemic changes however acute infarction cannot be excluded. Ventricles are normal in size. Subcutaneous soft tissue stranding over the left supraorbital region may represent contusion, correlate clinically. Paranasal sinuses and mastoid air cells are clear. CTA head: Mild stenosis of the bilateral V4 vertebral artery secondary to atherosclerosis. The basilar and bilateral posterior cerebral arteries are patent. Atherosclerotic calcifications of the bilateral carotid siphons resulting in mild flow-limiting stenosis in the supraclinoid segments. The bilateral middle cerebral arteries are patent. 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 The neck measures approximately 4 mm. The bilateral anterior cerebral arteries are patent. CTA neck: The major intradural venous sinuses are patent. Common origin of the right brachiocephalic and left common carotid artery. The left vertebral artery originates from the aortic arch. Right dominant vertebrobasilar system. There is no stenosis of the proximal right internal carotid artery by NASCET criteria. Retropharyngeal course of the right internal carotid artery. There is no stenosis of the proximal left internal carotid artery by NASCET criteria. Mild stenosis of the origin of the right vertebral artery. Otherwise the vertebral arteries in the neck are patent. There are dorsal spondylitic changes in the cervical spine. There are scattered subcentimeter lymph nodes in the neck. Soft tissues of the neck are normal. The visualized lung apices are clear. IMPRESSION: CT head: Extensive subarachnoid hemorrhage within the suprasellar cistern extending into the interhemispheric fissure, as well as the prepontine and interpeduncular cistern extending into the bilateral sylvian fissures. Lucency in the left subinsular region without transcortical extension may be related to chronic microvascular ischemic changes however acute infarction cannot be excluded. subcutaneous soft tissue stranding over the left supraorbital region may represent contusion, correlate clinically. 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 The neck measures approximately 4 mm. Mild stenosis of the V4 segments of the bilateral vertebral arteries and bilateral supraclinoid internal carotid arteries secondary to atherosclerosis. CTA neck: Mild stenosis of the origin of the right vertebral artery otherwise there is no evidence of hemodynamically significant stenosis in the cervical carotid or vertebral arteries by NASCET criteria. The findings were discussed with nurse on 7S5 at the time of dictation who will relay them to the physician. Signed: Kaylynn Lawrence MD Report Verified Date/Time: 01/15/2018 02:09:39 Reading Location: [address] Neuro Reading Room Performing Organization Address City/State/Zipcode Phone Number [facility] * CTA brain (01/14/2018 11:58 PM BREAKFAST SUPERVISOR) Specimen Narrative Performed At FINAL REPORT [facility] CLINICAL HISTORY: Intracranial hemorrhage TECHNIQUE: Initially, noncontrast head CT images were performed. Contiguous contrast-enhanced axial images through the neck followed by axial images through the head with coronal and sagittal reformations to assess the arterial circulation. 3-D reconstructions were performed using a volume rendered technique separately on a workstation. This exam was performed according to the departmental dose optimization program which includes automated exposure control, adjustment of the mA and/or kV according to the patient size, and/or use of an iterative reconstruction technique. COMPARISON: None available FINDINGS: Extensive subarachnoid hemorrhage within the suprasellar cistern extending into the interhemispheric fissure, as well as the prepontine and interpeduncular cistern extending into the bilateral sylvian fissures. There is no definite intraventricular hemorrhage. Intracranial vascular calcifications. Chronic microvascular ischemic changes. Lucency in the left subinsular region without transcortical extension may be related to chronic microvascular ischemic changes however acute infarction cannot be excluded. Ventricles are normal in size. Subcutaneous soft tissue stranding over the left supraorbital region may represent contusion, correlate clinically. Paranasal sinuses and mastoid air cells are clear. CTA head: Mild stenosis of the bilateral V4 vertebral artery secondary to atherosclerosis. The basilar and bilateral posterior cerebral arteries are patent. Atherosclerotic calcifications of the bilateral carotid siphons resulting in mild flow-limiting stenosis in the supraclinoid segments. The bilateral middle cerebral arteries are patent. 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 The neck measures approximately 4 mm. The bilateral anterior cerebral arteries are patent. CTA neck: The major intradural venous sinuses are patent. Common origin of the right brachiocephalic and left common carotid artery. The left vertebral artery originates from the aortic arch. Right dominant vertebrobasilar system. There is no stenosis of the proximal right internal carotid artery by NASCET criteria.Retropharyngeal course of the right internal carotid artery. There is no stenosis of the proximal left internal carotid artery by NASCET criteria. Mild stenosis of the origin of the right vertebral artery. Otherwise the vertebral arteries in the neck are patent. There are dorsal spondylitic changes in the cervical spine. There are scattered subcentimeter lymph nodes in the neck. Soft tissues of the neck are normal. The visualized lung apices are clear. IMPRESSION: CT head: Extensive subarachnoid hemorrhage within the suprasellar cistern extending into the interhemispheric fissure, as well as the prepontine and interpeduncular cistern extending into the bilateral sylvian fissures. Lucency in the left subinsular region without transcortical extension may be related to chronic microvascular ischemic changes however acute infarction cannot be excluded. subcutaneous soft tissue stranding over the left supraorbital region may represent contusion, correlate clinically. 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 The neck measures approximately 4 mm. Mild stenosis of the V4 segments of the bilateral vertebral arteries and bilateral supraclinoid internal carotid arteries secondary to atherosclerosis. CTA neck: Mild stenosis of the origin of the right vertebral artery otherwise there is no evidence of hemodynamically significant stenosis in the cervical carotid or vertebral arteries by NASCET criteria. The findings were discussed with nurse on 7S5 at the time of dictation who will relay them to the physician. Signed: Kaylynn Lawrence MD Report Verified Date/Time:01/15/2018 02:09:39 Reading Location: [facility] [id number] Neuro Reading Room Procedure Note Interface, External Ris In - 01/15/2018 2:11 AM BREAKFAST SUPERVISOR FINAL REPORT CLINICAL HISTORY: Intracranial hemorrhage TECHNIQUE: Initially, noncontrast head CT images were performed. Contiguous contrast-enhanced axial images through the neck followed by axial images through the head with coronal and sagittal reformations to assess the arterial circulation. 3-D reconstructions were performed using a volume rendered technique separately on a workstation. This exam was performed according to the departmental dose optimization program which includes automated exposure control, adjustment of the mA and/or kV according to the patient size, and/or use of an iterative reconstruction technique. COMPARISON: None available FINDINGS: Extensive subarachnoid hemorrhage within the suprasellar cistern extending into the interhemispheric fissure, as well as the prepontine and interpeduncular cistern extending into the bilateral sylvian fissures. There is no definite intraventricular hemorrhage. Intracranial vascular calcifications. Chronic microvascular ischemic changes. Lucency in the left subinsular region without transcortical extension may be related to chronic microvascular ischemic changes however acute infarction cannot be excluded. Ventricles are normal in size. Subcutaneous soft tissue stranding over the left supraorbital region may represent contusion, correlate clinically. Paranasal sinuses and mastoid air cells are clear. CTA head: Mild stenosis of the bilateral V4 vertebral artery secondary to atherosclerosis. The basilar and bilateral posterior cerebral arteries are patent. Atherosclerotic calcifications of the bilateral carotid siphons resulting in mild flow-limiting stenosis in the supraclinoid segments. The bilateral middle cerebral arteries are patent. 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 The neck measures approximately 4 mm. The bilateral anterior cerebral arteries are patent. CTA neck: The major intradural venous sinuses are patent. Common origin of the right brachiocephalic and left common carotid artery. The left vertebral artery originates from the aortic arch. Right dominant vertebrobasilar system. There is no stenosis of the proximal right internal carotid artery by NASCET criteria. Retropharyngeal course of the right internal carotid artery. There is no stenosis of the proximal left internal carotid artery by NASCET criteria. Mild stenosis of the origin of the right vertebral artery. Otherwise the vertebral arteries in the neck are patent. There are dorsal spondylitic changes in the cervical spine. There are scattered subcentimeter lymph nodes in the neck. Soft tissues of the neck are normal. The visualized lung apices are clear. IMPRESSION: CT head: Extensive subarachnoid hemorrhage within the suprasellar cistern extending into the interhemispheric fissure, as well as the prepontine and interpeduncular cistern extending into the bilateral sylvian fissures. Lucency in the left subinsular region without transcortical extension may be related to chronic microvascular ischemic changes however acute infarction cannot be excluded. subcutaneous soft tissue stranding over the left supraorbital region may represent contusion, correlate clinically. 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 The neck measures approximately 4 mm. Mild stenosis of the V4 segments of the bilateral vertebral arteries and bilateral supraclinoid internal carotid arteries secondary to atherosclerosis. CTA neck: Mild stenosis of the origin of the right vertebral artery otherwise there is no evidence of hemodynamically significant stenosis in the cervical carotid or vertebral arteries by NASCET criteria. The findings were discussed with nurse on 7S5 at the time of dictation who will relay them to the physician. Signed: Kaylynn Lawrence MD Report Verified Date/Time: 01/15/2018 02:09:39 Reading Location: [facility] B1 [id number] Neuro Reading Room Performing Organization Address City/State/Zipcode Phone Number GE RIS after 09/04/2017 Insurance Payer Benefit Subscriber ID Type Phone Address Plan / Group [facility] HMO/POS CARE POS SELECT CHOICE MEDICARE MEDICARE A xxxxxxxxxxx Medicare B Advance Directives For more information, please contact: [address] [address] Date Inactivated Comments Code Status Date Activated Full Code 01/15/2018 6:04 PM This code status was determined by: Patient
--- OUTSIDE RECORDS SUMMARY | 2018-09-05 06:33 | XMS REPORT ---
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 Allergies, Adverse Reactions, Alerts This patient has no known allergies or adverse reactions. Medications This patient has no known medications. Results Test Description Test Time Test Comments Text Results Atomic Results Result Comments POCT-GLUCOSE METER 2018-01-31 11:51:00 POC-GLUCOSE METER (BEAKER) (test ueyd=9452) 85 mg/dL 70-110 TESTED AT [address] [address] POCT-GLUCOSE [id number] 08:19:00* Test Item Value Reference Range Comments POC-GLUCOSE METER (BEAKER) (test hxhd=5205) 104 mg/dL 70-110 TESTED AT [address] [address] POCT-GLUCOSE [id number] 21:50:00* Test Item Value Reference Range Comments POC-GLUCOSE METER (BEAKER) (test fgbo=8708) 81 mg/dL 70-110 TESTED AT [address] [address] POCT-GLUCOSE [id number] 18:07:00* Test Item Value Reference Range Comments POC-GLUCOSE METER (BEAKER) (test sbqq=3996) 113 mg/dL 70-110 TESTED AT [address] [address] POCT-GLUCOSE [id number] 13:22:00* Test Item Value Reference Range Comments POC-GLUCOSE METER (BEAKER) (test oxfx=3562) 96 mg/dL 70-110 TESTED AT [address] [address] POCT-GLUCOSE [id number] 20:36:00* Test Item Value Reference Range Comments POC-GLUCOSE METER (BEAKER) (test dain=0819) 88 mg/dL 70-110 TESTED AT [place] [address] [facility] [address] POCT-GLUCOSE [id number] 18:20:00* Test Item Value Reference Range Comments POC-GLUCOSE METER (BEAKER) (test spbq=2681) 91 mg/dL 70-110 TESTED AT [facility] [address] [facility] [address] POCT-GLUCOSE [id number] 08:48:00* Test Item Value Reference Range Comments POC-GLUCOSE METER (BEAKER) (test myaq=1668) 88 mg/dL 70-110 TESTED AT [address] [address] BASIC METABOLIC [id number] 06:08:00* Test Item Value Reference Range Comments SODIUM (BEAKER) (test qqif=491) 137 meq/L 136-145 POTASSIUM (BEAKER) (test nzln=748) 3.9 meq/L 3.5-5.1 CHLORIDE (BEAKER) (test ohhd=377) 104 meq/L 98-107 CO2 (BEAKER) (test svjg=312) 24 meq/L 22-29 BLOOD UREA NITROGEN (BEAKER) (test lufa=493) 18 mg/dL 7-21 CREATININE (BEAKER) (test uxle=190) 0.90 mg/dL 0.57-1.25 GLUCOSE RANDOM (BEAKER) (test uwwu=007) 83 mg/dL 70-105 CALCIUM (BEAKER) (test pedb=253) 9.8 mg/dL 8.4-10.2 EGFR (BEAKER) (test zgos=6962) 82 mL/min/1.73 sq m ESTIMATED GFR IS NOT ACCURATE CREATININE CLEARANCE IN PREDICTING GLOMERULAR FILTRATION RATE. ESTIMATED GFR IS NOT APPLICABLE FOR DIALYSIS PATIENTS. CBC W/PLT COUNT & AUTO [id number] 05:38:00* Test Item Value Reference Range Comments WHITE BLOOD CELL COUNT (BEAKER) (test pcbh=074) 6.6 K/ L 3.5-10.5 RED BLOOD CELL COUNT (BEAKER) (test roge=992) 4.58 M/ L 4.63-6.08 HEMOGLOBIN (BEAKER) (test offx=727) 14.7 GM/DL 13.7-17.5 HEMATOCRIT (BEAKER) (test nsqr=330) 43.0 % 40.1-51.0 MEAN CORPUSCULAR VOLUME (BEAKER) (test tyok=436) 93.9 fL 79.0-92.2 MEAN CORPUSCULAR HEMOGLOBIN (BEAKER) (test efaf=269) 32.1 pg 25.7-32.2 MEAN CORPUSCULAR HEMOGLOBIN CONC (BEAKER) (test mlaj=698) 34.2 GM/DL 32.3-36.5 RED CELL DISTRIBUTION WIDTH (BEAKER) (test phds=110) 12.2 % 11.6-14.4 PLATELET COUNT (BEAKER) (test adtz=413) 217 K/CU MM 150-450 MEAN PLATELET VOLUME (BEAKER) (test rvnz=594) 9.9 fL 9.4-12.4 NUCLEATED RED BLOOD CELLS (BEAKER) (test rrxk=511) 0 /100 WBC 0-0 NEUTROPHILS RELATIVE PERCENT (BEAKER) (test wuuf=913) 58 % LYMPHOCYTES RELATIVE PERCENT (BEAKER) (test xsfl=231) 25 % MONOCYTES RELATIVE PERCENT (BEAKER) (test vztz=575) 12 % EOSINOPHILS RELATIVE PERCENT (BEAKER) (test fdbl=886) 4 % BASOPHILS RELATIVE PERCENT (BEAKER) (test jlyg=322) 1 % NEUTROPHILS ABSOLUTE COUNT (BEAKER) (test byec=713) 3.84 K/ L 1.78-5.38 LYMPHOCYTES ABSOLUTE COUNT (BEAKER) (test zbeg=559) 1.61 K/ L 1.32-3.57 MONOCYTES ABSOLUTE COUNT (BEAKER) (test verv=383) 0.76 K/ L 0.30-0.82 EOSINOPHILS ABSOLUTE COUNT (BEAKER) (test fmhu=502) 0.28 K/ L 0.04-0.54 BASOPHILS ABSOLUTE COUNT (BEAKER) (test hqix=045) 0.05 K/ L 0.01-0.08 IMMATURE GRANULOCYTES-RELATIVE PERCENT (BEAKER) (test riot=1334) 1 % 0-1 POCT-GLUCOSE [id number] 21:38:00* Test Item Value Reference Range Comments POC-GLUCOSE METER (BEAKER) (test vnjx=3443) 94 mg/dL 70-110 TESTED AT [address] [address] POCT-GLUCOSE [id number] 17:44:00* Test Item Value Reference Range Comments POC-GLUCOSE METER (BEAKER) (test vsih=3527) 107 mg/dL 70-110 TESTED AT [facility] [address] [facility] [address] POCT-GLUCOSE [id number] 08:12:00* Test Item Value Reference Range Comments POC-GLUCOSE METER (BEAKER) (test dvgk=0810) 98 mg/dL 70-110 TESTED AT [facility] [address] [facility] [address] BASIC METABOLIC [id number] 06:35:00* Test Item Value Reference Range Comments SODIUM (BEAKER) (test mype=941) 136 meq/L 136-145 POTASSIUM (BEAKER) (test jkis=073) 3.7 meq/L 3.5-5.1 CHLORIDE (BEAKER) (test uqai=643) 104 meq/L 98-107 CO2 (BEAKER) (test vdmc=098) 23 meq/L 22-29 BLOOD UREA NITROGEN (BEAKER) (test bgkl=837) 16 mg/dL 7-21 CREATININE (BEAKER) (test fvtp=898) 0.80 mg/dL 0.57-1.25 GLUCOSE RANDOM (BEAKER) (test locu=411) 86 mg/dL 70-105 CALCIUM (BEAKER) (test tgdf=363) 9.6 mg/dL 8.4-10.2 EGFR (BEAKER) (test zceq=8143) 94 mL/min/1.73 sq m ESTIMATED GFR IS NOT ACCURATE CREATININE CLEARANCE IN PREDICTING GLOMERULAR FILTRATION RATE. ESTIMATED GFR IS NOT APPLICABLE FOR DIALYSIS PATIENTS. CBC W/PLT COUNT & AUTO [id number] 06:25:00* Test Item Value Reference Range Comments WHITE BLOOD CELL COUNT (BEAKER) (test acnc=202) 8.0 K/ L 3.5-10.5 RED BLOOD CELL COUNT (BEAKER) (test lnyp=226) 4.49 M/ L 4.63-6.08 HEMOGLOBIN (BEAKER) (test bbbp=511) 15.1 GM/DL 13.7-17.5 HEMATOCRIT (BEAKER) (test tjlt=359) 42.5 % 40.1-51.0 MEAN CORPUSCULAR VOLUME (BEAKER) (test htpj=554) 94.7 fL 79.0-92.2 MEAN CORPUSCULAR HEMOGLOBIN (BEAKER) (test wrsx=141) 33.6 pg 25.7-32.2 MEAN CORPUSCULAR HEMOGLOBIN CONC (BEAKER) (test lsaq=932) 35.5 GM/DL 32.3-36.5 RED CELL DISTRIBUTION WIDTH (BEAKER) (test prkg=356) 12.2 % 11.6-14.4 PLATELET COUNT (BEAKER) (test hysa=475) 207 K/CU MM 150-450 MEAN PLATELET VOLUME (BEAKER) (test hxfp=908) 10.5 fL 9.4-12.4 NUCLEATED RED BLOOD CELLS (BEAKER) (test xntb=626) 0 /100 WBC 0-0 NEUTROPHILS RELATIVE PERCENT (BEAKER) (test swiy=809) 64 % LYMPHOCYTES RELATIVE PERCENT (BEAKER) (test dchh=734) 20 % MONOCYTES RELATIVE PERCENT (BEAKER) (test kgww=650) 11 % EOSINOPHILS RELATIVE PERCENT (BEAKER) (test hznv=063) 3 % BASOPHILS RELATIVE PERCENT (BEAKER) (test swha=077) 1 % NEUTROPHILS ABSOLUTE COUNT (BEAKER) (test rrdg=411) 5.14 K/ L 1.78-5.38 LYMPHOCYTES ABSOLUTE COUNT (BEAKER) (test xqrf=771) 1.62 K/ L 1.32-3.57 MONOCYTES ABSOLUTE COUNT (BEAKER) (test snph=745) 0.89 K/ L 0.30-0.82 EOSINOPHILS ABSOLUTE COUNT (BEAKER) (test hanc=784) 0.27 K/ L 0.04-0.54 BASOPHILS ABSOLUTE COUNT (BEAKER) (test anlw=837) 0.05 K/ L 0.01-0.08 IMMATURE GRANULOCYTES-RELATIVE PERCENT (BEAKER) (test kvsz=9279) 1 % 0-1 POCT-GLUCOSE [id number] 20:49:00* Test Item Value Reference Range Comments POC-GLUCOSE METER (BEAKER) (test fata=6771) 252 mg/dL 70-110 TESTED AT [address] [address] POCT-GLUCOSE [id number] 17:58:00* Test Item Value Reference Range Comments POC-GLUCOSE METER (BEAKER) (test rlel=9616) 92 mg/dL 70-110 TESTED AT [address] [address] POCT-GLUCOSE [id number] 14:48:00* Test Item Value Reference Range Comments POC-GLUCOSE METER (BEAKER) (test qvqu=0128) 93 mg/dL 70-110 TESTED AT [facility] [address] [facility] [address] POCT-GLUCOSE [id number] 07:35:00* Test Item Value Reference Range Comments POC-GLUCOSE METER (BEAKER) (test tjae=7490) 110 mg/dL 70-110 TESTED AT [facility] [address] [facility] [address] POCT-GLUCOSE [id number] 07:35:00* Test Item Value Reference Range Comments POC-GLUCOSE METER (BEAKER) (test tzpg=8635) 100 mg/dL 70-110 TESTED AT [address] [address] [id number] 05:26:00* Test Item Value Reference Range Comments MAGNESIUM (BEAKER) (test clrg=681) 2.1 mg/dL 1.6-2.6 BASIC METABOLIC [id number] 05:26:00* Test Item Value Reference Range Comments SODIUM (BEAKER) (test qzyg=861) 138 meq/L 136-145 POTASSIUM (BEAKER) (test qlai=068) 3.8 meq/L 3.5-5.1 CHLORIDE (BEAKER) (test hkug=768) 103 meq/L 98-107 CO2 (BEAKER) (test dkml=303) 24 meq/L 22-29 BLOOD UREA NITROGEN (BEAKER) (test xata=555) 13 mg/dL 7-21 CREATININE (BEAKER) (test ehqs=664) 0.76 mg/dL 0.57-1.25 GLUCOSE RANDOM (BEAKER) (test wonc=304) 87 mg/dL 70-105 CALCIUM (BEAKER) (test wlva=130) 9.9 mg/dL 8.4-10.2 EGFR (BEAKER) (test zmet=6366) 100 mL/min/1.73 sq m ESTIMATED GFR IS NOT ACCURATE CREATININE CLEARANCE IN PREDICTING GLOMERULAR FILTRATION RATE. ESTIMATED GFR IS NOT APPLICABLE FOR DIALYSIS PATIENTS. CBC (HEMOGRAM ONLY)2018-01-27 05:00:00* Test Item Value Reference Range Comments WHITE BLOOD CELL COUNT (BEAKER) (test frxz=426) 9.0 K/ L 3.5-10.5 RED BLOOD CELL COUNT (BEAKER) (test enxl=800) 4.58 M/ L 4.63-6.08 HEMOGLOBIN (BEAKER) (test mdap=847) 14.8 GM/DL 13.7-17.5 HEMATOCRIT (BEAKER) (test bfks=625) 43.3 % 40.1-51.0 MEAN CORPUSCULAR VOLUME (BEAKER) (test ugfi=069) 94.5 fL 79.0-92.2 MEAN CORPUSCULAR HEMOGLOBIN (BEAKER) (test ibpv=188) 32.3 pg 25.7-32.2 MEAN CORPUSCULAR HEMOGLOBIN CONC (BEAKER) (test hxnp=509) 34.2 GM/DL 32.3-36.5 RED CELL DISTRIBUTION WIDTH (BEAKER) (test aanc=353) 12.1 % 11.6-14.4 PLATELET COUNT (BEAKER) (test wxun=880) 198 K/CU MM 150-450 MEAN PLATELET VOLUME (BEAKER) (test vymp=262) 10.0 fL 9.4-12.4 NUCLEATED RED BLOOD CELLS (BEAKER) (test ukqm=451) 0 /100 WBC 0-0 POCT-GLUCOSE [id number] 23:49:00* Test Item Value Reference Range Comments POC-GLUCOSE METER (BEAKER) (test tcza=3789) 95 mg/dL 70-110 TESTED AT [place] [id number] [facility] [address] POCT-GLUCOSE [id number] 17:44:00* Test Item Value Reference Range Comments POC-GLUCOSE METER (BEAKER) (test temi=0432) 89 mg/dL 70-110 TESTED AT [address] [address] [id number] 16:50:00* Test Item Value Reference Range Comments MAGNESIUM (BEAKER) (test dbdi=024) 1.9 mg/dL 1.6-2.6 Specimen slightly hemolyzed BASIC METABOLIC [id number] 16:50:00* Test Item Value Reference Range Comments SODIUM (BEAKER) (test ibjt=459) 136 meq/L 136-145 POTASSIUM (BEAKER) (test rewk=884) 4.4 meq/L 3.5-5.1 Specimen slightly hemolyzed CHLORIDE (BEAKER) (test dkzm=449) 101 meq/L 98-107 CO2 (BEAKER) (test suim=575) 23 meq/L 22-29 BLOOD UREA NITROGEN (BEAKER) (test yash=142) 17 mg/dL 7-21 CREATININE (BEAKER) (test otyr=115) 0.73 mg/dL 0.57-1.25 Specimen slightly hemolyzed GLUCOSE RANDOM (BEAKER) (test gfjz=285) 56 mg/dL 70-105 CALCIUM (BEAKER) (test dsdj=429) 9.5 mg/dL 8.4-10.2 EGFR (BEAKER) (test kdso=4218) 105 mL/min/1.73 sq m ESTIMATED GFR IS NOT ACCURATE CREATININE CLEARANCE IN PREDICTING GLOMERULAR FILTRATION RATE. ESTIMATED GFR IS NOT APPLICABLE FOR DIALYSIS PATIENTS. POCT-GLUCOSE [id number] 06:44:00* Test Item Value Reference Range Comments POC-GLUCOSE METER (BEAKER) (test gpzk=2615) 106 mg/dL 70-110 TESTED AT [address] [address] POCT-GLUCOSE [id number] 00:28:00* Test Item Value Reference Range Comments POC-GLUCOSE METER (BEAKER) (test yxux=9990) 115 mg/dL 70-110 TESTED AT [address] [address] POCT-GLUCOSE [id number] 18:22:00* Test Item Value Reference Range Comments POC-GLUCOSE METER (BEAKER) (test zcai=8358) 96 mg/dL 70-110 TESTED AT [address] [address] POCT-GLUCOSE [id number] 12:10:00* Test Item Value Reference Range Comments POC-GLUCOSE METER (BEAKER) (test oqoi=4937) 96 mg/dL 70-110 TESTED AT [address] [address] [id number] 07:03:00* Test Item Value Reference Range Comments MAGNESIUM (BEAKER) (test wzcv=036) 1.9 mg/dL 1.6-2.6 BASIC METABOLIC [id number] 07:03:00* Test Item Value Reference Range Comments SODIUM (BEAKER) (test rrrq=675) 137 meq/L 136-145 POTASSIUM (BEAKER) (test dhne=130) 3.6 meq/L 3.5-5.1 CHLORIDE (BEAKER) (test fecf=538) 104 meq/L 98-107 CO2 (BEAKER) (test sdik=254) 25 meq/L 22-29 BLOOD UREA NITROGEN (BEAKER) (test otpf=222) 19 mg/dL 7-21 CREATININE (BEAKER) (test ncvk=230) 0.73 mg/dL 0.57-1.25 GLUCOSE RANDOM (BEAKER) (test snlp=413) 86 mg/dL 70-105 CALCIUM (BEAKER) (test xcvn=435) 9.2 mg/dL 8.4-10.2 EGFR (BEAKER) (test afem=8058) 105 mL/min/1.73 sq m ESTIMATED GFR IS NOT ACCURATE CREATININE CLEARANCE IN PREDICTING GLOMERULAR FILTRATION RATE. ESTIMATED GFR IS NOT APPLICABLE FOR DIALYSIS PATIENTS. POCT-GLUCOSE [id number] 06:11:00* Test Item Value Reference Range Comments POC-GLUCOSE METER (BEAKER) (test oguf=3653) 85 mg/dL 70-110 TESTED AT [address] [address] POCT-GLUCOSE [id number] 00:25:00* Test Item Value Reference Range Comments POC-GLUCOSE METER (BEAKER) (test bjms=2439) 122 mg/dL 70-110 TESTED AT [address] [address] POCT-GLUCOSE [id number] 12:44:00* Test Item Value Reference Range Comments POC-GLUCOSE METER (BEAKER) (test ainp=0320) 97 mg/dL 70-110 TESTED AT [address] [address] [id number] 11:37:00* Test Item Value Reference Range Comments SODIUM (BEAKER) (test xzhm=730) 134 meq/L 136-145 POCT-GLUCOSE [id number] 08:18:00* Test Item Value Reference Range Comments POC-GLUCOSE METER (BEAKER) (test lwfp=3470) 101 mg/dL 70-110 TESTED AT [address] [address] POCT-GLUCOSE [id number] 06:37:00* Test Item Value Reference Range Comments POC-GLUCOSE METER (BEAKER) (test fiqe=3121) 102 mg/dL 70-110 TESTED AT [address] [address] [id number] 04:05:00* Test Item Value Reference Range Comments MAGNESIUM (BEAKER) (test ksij=724) 1.7 mg/dL 1.6-2.6 BASIC METABOLIC [id number] 04:05:00* Test Item Value Reference Range Comments SODIUM (BEAKER) (test swvs=701) 131 meq/L 136-145 POTASSIUM (BEAKER) (test dlbk=259) 3.4 meq/L 3.5-5.1 CHLORIDE (BEAKER) (test aooj=891) 100 meq/L 98-107 CO2 (BEAKER) (test pdmv=085) 24 meq/L 22-29 BLOOD UREA NITROGEN (BEAKER) (test ntmt=269) 17 mg/dL 7-21 CREATININE (BEAKER) (test vmuh=279) 0.73 mg/dL 0.57-1.25 GLUCOSE RANDOM (BEAKER) (test eygh=075) 107 mg/dL 70-105 CALCIUM (BEAKER) (test gkob=676) 8.8 mg/dL 8.4-10.2 EGFR (BEAKER) (test bmwk=9636) 105 mL/min/1.73 sq m ESTIMATED GFR IS NOT ACCURATE CREATININE CLEARANCE IN PREDICTING GLOMERULAR FILTRATION RATE. ESTIMATED GFR IS NOT APPLICABLE FOR DIALYSIS PATIENTS. CBC W/PLT COUNT & AUTO [id number] 03:32:00* Test Item Value Reference Range Comments WHITE BLOOD CELL COUNT (BEAKER) (test batb=133) 9.7 K/ L 3.5-10.5 RED BLOOD CELL COUNT (BEAKER) (test difk=778) 4.34 M/ L 4.63-6.08 HEMOGLOBIN (BEAKER) (test elzw=833) 14.0 GM/DL 13.7-17.5 HEMATOCRIT (BEAKER) (test xcki=982) 39.6 % 40.1-51.0 MEAN CORPUSCULAR VOLUME (BEAKER) (test sahf=944) 91.2 fL 79.0-92.2 MEAN CORPUSCULAR HEMOGLOBIN (BEAKER) (test dhyp=822) 32.3 pg 25.7-32.2 MEAN CORPUSCULAR HEMOGLOBIN CONC (BEAKER) (test toij=797) 35.4 GM/DL 32.3-36.5 RED CELL DISTRIBUTION WIDTH (BEAKER) (test qoio=464) 11.9 % 11.6-14.4 PLATELET COUNT (BEAKER) (test qzda=841) 177 K/CU MM 150-450 MEAN PLATELET VOLUME (BEAKER) (test ctxz=308) 9.5 fL 9.4-12.4 NUCLEATED RED BLOOD CELLS (BEAKER) (test oryt=387) 0 /100 WBC 0-0 NEUTROPHILS RELATIVE PERCENT (BEAKER) (test jhix=022) 74 % LYMPHOCYTES RELATIVE PERCENT (BEAKER) (test mmvx=070) 12 % MONOCYTES RELATIVE PERCENT (BEAKER) (test mnfq=722) 12 % EOSINOPHILS RELATIVE PERCENT (BEAKER) (test vsly=195) 1 % BASOPHILS RELATIVE PERCENT (BEAKER) (test ncrk=355) 0 % NEUTROPHILS ABSOLUTE COUNT (BEAKER) (test anis=733) 7.20 K/ L 1.78-5.38 LYMPHOCYTES ABSOLUTE COUNT (BEAKER) (test sjjl=287) 1.15 K/ L 1.32-3.57 MONOCYTES ABSOLUTE COUNT (BEAKER) (test urkh=523) 1.14 K/ L 0.30-0.82 EOSINOPHILS ABSOLUTE COUNT (BEAKER) (test sgec=511) 0.14 K/ L 0.04-0.54 BASOPHILS ABSOLUTE COUNT (BEAKER) (test bmat=337) 0.02 K/ L 0.01-0.08 IMMATURE GRANULOCYTES-RELATIVE PERCENT (BEAKER) (test ksqs=8846) 0 % 0-1 POCT-GLUCOSE [id number] 00:16:00* Test Item Value Reference Range Comments POC-GLUCOSE METER (BEAKER) (test pyrn=4471) 92 mg/dL 70-110 TESTED AT [address] [address] POCT-GLUCOSE [id number] 18:37:00* Test Item Value Reference Range Comments POC-GLUCOSE METER (BEAKER) (test cbjg=2252) 215 mg/dL 70-110 TESTED AT [address] [address] POCT-GLUCOSE [id number] 12:24:00* Test Item Value Reference Range Comments POC-GLUCOSE METER (BEAKER) (test qgzm=6830) 112 mg/dL 70-110 TESTED AT [address] [address] POCT-GLUCOSE [id number] 06:15:00* Test Item Value Reference Range Comments POC-GLUCOSE METER (BEAKER) (test gdvu=0287) 96 mg/dL 70-110 TESTED AT [place] [id number] [id number] 05:58:00* Test Item Value Reference Range Comments MAGNESIUM (BEAKER) (test knqv=076) 1.8 mg/dL 1.6-2.6 BASIC METABOLIC [id number] 05:58:00* Test Item Value Reference Range Comments SODIUM (BEAKER) (test hnzt=200) 135 meq/L 136-145 POTASSIUM (BEAKER) (test xiwl=158) 3.3 meq/L 3.5-5.1 CHLORIDE (BEAKER) (test mawo=858) 103 meq/L 98-107 CO2 (BEAKER) (test zyui=377) 23 meq/L 22-29 BLOOD UREA NITROGEN (BEAKER) (test ffeo=611) 18 mg/dL 7-21 CREATININE (BEAKER) (test hosy=282) 0.71 mg/dL 0.57-1.25 GLUCOSE RANDOM (BEAKER) (test dksn=746) 97 mg/dL 70-105 CALCIUM (BEAKER) (test blmx=999) 8.8 mg/dL 8.4-10.2 EGFR (BEAKER) (test xzvw=9209) 108 mL/min/1.73 sq m ESTIMATED GFR IS NOT ACCURATE CREATININE CLEARANCE IN PREDICTING GLOMERULAR FILTRATION RATE. ESTIMATED GFR IS NOT APPLICABLE FOR DIALYSIS PATIENTS. CBC W/PLT COUNT & AUTO [id number] 05:37:00* Test Item Value Reference Range Comments WHITE BLOOD CELL COUNT (BEAKER) (test cszi=684) 9.0 K/ L 3.5-10.5 RED BLOOD CELL COUNT (BEAKER) (test jpsx=093) 4.44 M/ L 4.63-6.08 HEMOGLOBIN (BEAKER) (test mrnn=805) 14.6 GM/DL 13.7-17.5 HEMATOCRIT (BEAKER) (test kjuk=204) 40.5 % 40.1-51.0 MEAN CORPUSCULAR VOLUME (BEAKER) (test nigf=187) 91.2 fL 79.0-92.2 MEAN CORPUSCULAR HEMOGLOBIN (BEAKER) (test hjds=614) 32.9 pg 25.7-32.2 MEAN CORPUSCULAR HEMOGLOBIN CONC (BEAKER) (test gvmo=840) 36.0 GM/DL 32.3-36.5 RED CELL DISTRIBUTION WIDTH (BEAKER) (test cuop=812) 11.9 % 11.6-14.4 PLATELET COUNT (BEAKER) (test tkjj=657) 146 K/CU MM 150-450 MEAN PLATELET VOLUME (BEAKER) (test ipkc=521) 9.9 fL 9.4-12.4 NUCLEATED RED BLOOD CELLS (BEAKER) (test ybnr=159) 0 /100 WBC 0-0 NEUTROPHILS RELATIVE PERCENT (BEAKER) (test aipn=209) 73 % LYMPHOCYTES RELATIVE PERCENT (BEAKER) (test nugk=178) 12 % MONOCYTES RELATIVE PERCENT (BEAKER) (test qfyg=577) 13 % EOSINOPHILS RELATIVE PERCENT (BEAKER) (test wspv=182) 1 % BASOPHILS RELATIVE PERCENT (BEAKER) (test vknt=672) 0 % NEUTROPHILS ABSOLUTE COUNT (BEAKER) (test gnug=028) 6.52 K/ L 1.78-5.38 LYMPHOCYTES ABSOLUTE COUNT (BEAKER) (test xpbw=643) 1.11 K/ L 1.32-3.57 MONOCYTES ABSOLUTE COUNT (BEAKER) (test mmpm=403) 1.13 K/ L 0.30-0.82 EOSINOPHILS ABSOLUTE COUNT (BEAKER) (test rowi=514) 0.12 K/ L 0.04-0.54 BASOPHILS ABSOLUTE COUNT (BEAKER) (test orrh=020) 0.02 K/ L 0.01-0.08 IMMATURE GRANULOCYTES-RELATIVE PERCENT (BEAKER) (test pgmv=1873) 1 % 0-1 [id number] 17:44:00* Test Item Value Reference Range Comments SODIUM (BEAKER) (test qusc=724) 135 meq/L 136-145 POCT-GLUCOSE [id number] 17:17:00* Test Item Value Reference Range Comments POC-GLUCOSE METER (BEAKER) (test otrw=5511) 97 mg/dL 70-110 TESTED AT [place] [id number] [facility] [address] POCT-GLUCOSE [id number] 12:36:00* Test Item Value Reference Range Comments POC-GLUCOSE METER (BEAKER) (test pewp=9177) 115 mg/dL 70-110 TESTED AT [place] [id number] [facility] [address] POCT-GLUCOSE [id number] 09:30:00* Test Item Value Reference Range Comments POC-GLUCOSE METER (BEAKER) (test dzhv=7973) 111 mg/dL 70-110 TESTED AT [facility] [address] [facility] [address] HEMOGLOBIN [id number] 08:30:00* Test Item Value Reference Range Comments HEMOGLOBIN A1C (BEAKER) (test wyon=152) 5.6 % 4.3-6.1 POCT-GLUCOSE [id number] 05:52:00* Test Item Value Reference Range Comments POC-GLUCOSE METER (BEAKER) (test nckt=5011) 121 mg/dL 70-110 TESTED AT [place] [id number] [facility] [address] [id number] 05:26:00* Test Item Value Reference Range Comments THYROID STIMULATING HORMONE (BEAKER) (test zxqo=004) 1.24 uIU/mL 0.35-4.94 [id number] 05:24:00* Test Item Value Reference Range Comments MAGNESIUM (BEAKER) (test lgni=495) 2.1 mg/dL 1.6-2.6 BASIC METABOLIC [id number] 05:24:00* Test Item Value Reference Range Comments SODIUM (BEAKER) (test jyyu=351) 135 meq/L 136-145 POTASSIUM (BEAKER) (test pvtl=095) 3.6 meq/L 3.5-5.1 CHLORIDE (BEAKER) (test dzyk=070) 103 meq/L 98-107 CO2 (BEAKER) (test fjvd=272) 24 meq/L 22-29 BLOOD UREA NITROGEN (BEAKER) (test kwmw=552) 18 mg/dL 7-21 CREATININE (BEAKER) (test mfha=243) 0.71 mg/dL 0.57-1.25 GLUCOSE RANDOM (BEAKER) (test hdll=032) 95 mg/dL 70-105 CALCIUM (BEAKER) (test neqb=311) 8.9 mg/dL 8.4-10.2 EGFR (BEAKER) (test ecxl=8543) 108 mL/min/1.73 sq m ESTIMATED GFR IS NOT ACCURATE CREATININE CLEARANCE IN PREDICTING GLOMERULAR FILTRATION RATE. ESTIMATED GFR IS NOT APPLICABLE FOR DIALYSIS PATIENTS. CBC W/PLT COUNT & AUTO [id number] 04:58:00* Test Item Value Reference Range Comments WHITE BLOOD CELL COUNT (BEAKER) (test xusi=351) 9.6 K/ L 3.5-10.5 RED BLOOD CELL COUNT (BEAKER) (test ukik=520) 5.05 M/ L 4.63-6.08 HEMOGLOBIN (BEAKER) (test phwv=307) 16.4 GM/DL 13.7-17.5 HEMATOCRIT (BEAKER) (test kqxf=104) 47.0 % 40.1-51.0 MEAN CORPUSCULAR VOLUME (BEAKER) (test pxtc=100) 93.1 fL 79.0-92.2 MEAN CORPUSCULAR HEMOGLOBIN (BEAKER) (test uluw=448) 32.5 pg 25.7-32.2 MEAN CORPUSCULAR HEMOGLOBIN CONC (BEAKER) (test lcse=928) 34.9 GM/DL 32.3-36.5 RED CELL DISTRIBUTION WIDTH (BEAKER) (test xkiu=619) 12.0 % 11.6-14.4 PLATELET COUNT (BEAKER) (test tbdu=219) 142 K/CU MM 150-450 MEAN PLATELET VOLUME (BEAKER) (test xgjo=587) 9.6 fL 9.4-12.4 NUCLEATED RED BLOOD CELLS (BEAKER) (test iild=956) 0 /100 WBC 0-0 NEUTROPHILS RELATIVE PERCENT (BEAKER) (test srvv=534) 69 % LYMPHOCYTES RELATIVE PERCENT (BEAKER) (test muyj=581) 16 % MONOCYTES RELATIVE PERCENT (BEAKER) (test xqnk=169) 13 % EOSINOPHILS RELATIVE PERCENT (BEAKER) (test rrou=063) 2 % BASOPHILS RELATIVE PERCENT (BEAKER) (test qjpq=652) 0 % NEUTROPHILS ABSOLUTE COUNT (BEAKER) (test ragr=435) 6.59 K/ L 1.78-5.38 LYMPHOCYTES ABSOLUTE COUNT (BEAKER) (test llor=054) 1.49 K/ L 1.32-3.57 MONOCYTES ABSOLUTE COUNT (BEAKER) (test gvgm=283) 1.25 K/ L 0.30-0.82 EOSINOPHILS ABSOLUTE COUNT (BEAKER) (test oreo=654) 0.15 K/ L 0.04-0.54 BASOPHILS ABSOLUTE COUNT (BEAKER) (test irzj=422) 0.04 K/ L 0.01-0.08 IMMATURE GRANULOCYTES-RELATIVE PERCENT (BEAKER) (test mkvq=6634) 0 % 0-1 POCT-GLUCOSE [id number] 23:42:00* Test Item Value Reference Range Comments POC-GLUCOSE METER (BEAKER) (test caks=0480) 114 mg/dL 70-110 TESTED AT [address] [address] POCT-GLUCOSE [id number] 16:36:00* Test Item Value Reference Range Comments POC-GLUCOSE METER (BEAKER) (test dihu=5778) 116 mg/dL 70-110 TESTED AT [address] [address] POCT-GLUCOSE [id number] 10:59:00* Test Item Value Reference Range Comments POC-GLUCOSE METER (BEAKER) (test cpsf=7763) 97 mg/dL 70-110 TESTED AT [address] [address] POCT-GLUCOSE [id number] 08:14:00* Test Item Value Reference Range Comments POC-GLUCOSE METER (BEAKER) (test tghl=6152) 103 mg/dL 70-110 TESTED AT [address] [address] POCT-GLUCOSE [id number] 06:13:00* Test Item Value Reference Range Comments POC-GLUCOSE METER (BEAKER) (test gmbd=2909) 110 mg/dL 70-110 TESTED AT [address] [address] [id number] 03:47:00* Test Item Value Reference Range Comments MAGNESIUM (BEAKER) (test pbna=497) 2.0 mg/dL 1.6-2.6 BASIC METABOLIC [id number] 03:47:00* Test Item Value Reference Range Comments SODIUM (BEAKER) (test zejl=377) 137 meq/L 136-145 POTASSIUM (BEAKER) (test ubip=448) 3.6 meq/L 3.5-5.1 CHLORIDE (BEAKER) (test mpdw=405) 104 meq/L 98-107 CO2 (BEAKER) (test okbq=210) 24 meq/L 22-29 BLOOD UREA NITROGEN (BEAKER) (test zlju=632) 18 mg/dL 7-21 CREATININE (BEAKER) (test qvnj=252) 0.70 mg/dL 0.57-1.25 GLUCOSE RANDOM (BEAKER) (test oyjf=046) 101 mg/dL 70-105 CALCIUM (BEAKER) (test rbqw=711) 9.0 mg/dL 8.4-10.2 EGFR (BEAKER) (test bxli=9492) 110 mL/min/1.73 sq m ESTIMATED GFR IS NOT ACCURATE CREATININE CLEARANCE IN PREDICTING GLOMERULAR FILTRATION RATE. ESTIMATED GFR IS NOT APPLICABLE FOR DIALYSIS PATIENTS. CBC W/PLT COUNT & AUTO [id number] 03:27:00* Test Item Value Reference Range Comments WHITE BLOOD CELL COUNT (BEAKER) (test qqjk=413) 9.8 K/ L 3.5-10.5 RED BLOOD CELL COUNT (BEAKER) (test lrxy=648) 4.75 M/ L 4.63-6.08 HEMOGLOBIN (BEAKER) (test ryvb=902) 15.5 GM/DL 13.7-17.5 HEMATOCRIT (BEAKER) (test osxs=887) 44.4 % 40.1-51.0 MEAN CORPUSCULAR VOLUME (BEAKER) (test irww=325) 93.5 fL 79.0-92.2 MEAN CORPUSCULAR HEMOGLOBIN (BEAKER) (test vroz=307) 32.6 pg 25.7-32.2 MEAN CORPUSCULAR HEMOGLOBIN CONC (BEAKER) (test cwxp=366) 34.9 GM/DL 32.3-36.5 RED CELL DISTRIBUTION WIDTH (BEAKER) (test rdrh=416) 12.0 % 11.6-14.4 PLATELET COUNT (BEAKER) (test wssc=267) 142 K/CU MM 150-450 MEAN PLATELET VOLUME (BEAKER) (test tqpa=797) 9.3 fL 9.4-12.4 NUCLEATED RED BLOOD CELLS (BEAKER) (test mdxo=706) 0 /100 WBC 0-0 NEUTROPHILS RELATIVE PERCENT (BEAKER) (test rkos=370) 73 % LYMPHOCYTES RELATIVE PERCENT (BEAKER) (test oxao=916) 15 % MONOCYTES RELATIVE PERCENT (BEAKER) (test hamn=287) 12 % EOSINOPHILS RELATIVE PERCENT (BEAKER) (test xwku=885) 1 % BASOPHILS RELATIVE PERCENT (BEAKER) (test qhry=158) 0 % NEUTROPHILS ABSOLUTE COUNT (BEAKER) (test meit=798) 7.10 K/ L 1.78-5.38 LYMPHOCYTES ABSOLUTE COUNT (BEAKER) (test jyfx=059) 1.45 K/ L 1.32-3.57 MONOCYTES ABSOLUTE COUNT (BEAKER) (test mtuw=881) 1.15 K/ L 0.30-0.82 EOSINOPHILS ABSOLUTE COUNT (BEAKER) (test dabc=934) 0.05 K/ L 0.04-0.54 BASOPHILS ABSOLUTE COUNT (BEAKER) (test hxxp=887) 0.01 K/ L 0.01-0.08 IMMATURE GRANULOCYTES-RELATIVE PERCENT (BEAKER) (test urvw=2511) 0 % 0-1 POCT-GLUCOSE [id number] 02:07:00* Test Item Value Reference Range Comments POC-GLUCOSE METER (BEAKER) (test uvpn=8592) 108 mg/dL 70-110 TESTED AT [facility] [address] [facility] [address] EEG AWAKE AND [id number] 15:37:00Reason for exam:->SeizureNeurophysiology Electroencephalogram Report DATE OF REPORT: DATE \\@ "M/d/yy" 01/20/18 Date(s) of Study: 01/20/2018 ACC: [id number] Start time: 1319 hrs Stop time: 1341 hrs ICD-10: R56.9 Unspecified Convulsions CPT Code: 49523 EEG: awake and asleep <40 min HISTORY (per cryptologic technician technical note): 73 year old male referred for inpatient EEG due to an episode of shaking during an intense headache. MEDICATIONS THAT COULD AFFECT EEG (in past 24 hours): Wales, Radha TECHNICAL SUMMARY: This is a digital video [...] asleep EEG CLINICAL COMMENT: An EEG without ep ileptiform discharges does not exclude the possibility of epilepsy. If the clin ical suspicion of epilepsy remains, consider additional EEG recordings. Promise Banks MD Epilepsy Fellow [facility] Neurophysiology Service Blair Chen M.D., FACNS, FAAN, FATUMA Professor of Neurology, [facility] [employer] [facility] Dir venecia, [facility] Epilepsy Center Head, Eliseo Ponce Neurophysiology Lab -GLUCOSE [id number] 12:08:00* Test Item Value Reference Range Comments POC-GLUCOSE METER (BEAKER) (test kduc=1917) 118 mg/dL 70-110 TESTED AT [facility] [address] [facility] [address] [address], BRAIN, WITHOUT [id number] 10:40:00FINAL REPORT CT Head without contrast CLINICAL HISTORY: [...] slightly decreased subarachnoid hemorrhage in the anterior inter hemispheric fissure and splaying the septum pellucidum, the latter now demonstra ting a layering hematocrit level. Scattered bilateral cerebral subarachnoid hemo rrhage is also substantially decreased. Trace intraventricular hemorrhage is aga in seen without hydrocephalus. Allowing for metallic streak effect and the doug ble technique, no gross evidence of acute infarction is seen. Generalized parenc hymal volume loss is again noted without midline shift. The skull remains intact . IMPRESSION: Since 01/17/2018, continued decrease in subarachnoid hemorrhage. Si gned: Napoleno Dee MDReport Verified Date/Time: 01/20/2018 10:40:53 Reading Lo cation: [facility] B1 C013V Neuro Reading Room -GLUCOSE [id number] 06:03:00* Test Item Value Reference Range Comments POC-GLUCOSE METER (BEAKER) (test gkmr=8563) 137 mg/dL 70-110 TESTED AT [facility] [address] [facility] [address] BASIC METABOLIC [id number] 03:49:00* Test Item Value Reference Range Comments SODIUM (BEAKER) (test pchn=859) 138 meq/L 136-145 POTASSIUM (BEAKER) (test zjxr=671) 3.2 meq/L 3.5-5.1 CHLORIDE (BEAKER) (test ooyd=754) 105 meq/L 98-107 CO2 (BEAKER) (test gcpe=300) 23 meq/L 22-29 BLOOD UREA NITROGEN (BEAKER) (test vbgf=626) 20 mg/dL 7-21 CREATININE (BEAKER) (test obsx=345) 0.70 mg/dL 0.57-1.25 GLUCOSE RANDOM (BEAKER) (test oied=048) 130 mg/dL 70-105 CALCIUM (BEAKER) (test bupo=017) 9.1 mg/dL 8.4-10.2 EGFR (BEAKER) (test jnzs=4104) 110 mL/min/1.73 sq m ESTIMATED GFR IS NOT ACCURATE CREATININE CLEARANCE IN PREDICTING GLOMERULAR FILTRATION RATE. ESTIMATED GFR IS NOT APPLICABLE FOR DIALYSIS PATIENTS. CBC W/PLT COUNT & AUTO [id number] 03:36:00* Test Item Value Reference Range Comments WHITE BLOOD CELL COUNT (BEAKER) (test zvkf=699) 10.0 K/ L 3.5-10.5 RED BLOOD CELL COUNT (BEAKER) (test ntof=908) 4.89 M/ L 4.63-6.08 HEMOGLOBIN (BEAKER) (test vmpt=118) 15.7 GM/DL 13.7-17.5 HEMATOCRIT (BEAKER) (test alum=995) 46.3 % 40.1-51.0 MEAN CORPUSCULAR VOLUME (BEAKER) (test wzyu=361) 94.7 fL 79.0-92.2 MEAN CORPUSCULAR HEMOGLOBIN (BEAKER) (test mvqe=694) 32.1 pg 25.7-32.2 MEAN CORPUSCULAR HEMOGLOBIN CONC (BEAKER) (test flmk=558) 33.9 GM/DL 32.3-36.5 RED CELL DISTRIBUTION WIDTH (BEAKER) (test ztek=784) 12.3 % 11.6-14.4 PLATELET COUNT (BEAKER) (test exbx=434) 157 K/CU MM 150-450 MEAN PLATELET VOLUME (BEAKER) (test edqo=786) 9.2 fL 9.4-12.4 NUCLEATED RED BLOOD CELLS (BEAKER) (test ytnq=078) 0 /100 WBC 0-0 NEUTROPHILS RELATIVE PERCENT (BEAKER) (test pauf=218) 80 % LYMPHOCYTES RELATIVE PERCENT (BEAKER) (test oxpe=109) 8 % MONOCYTES RELATIVE PERCENT (BEAKER) (test aozh=823) 11 % EOSINOPHILS RELATIVE PERCENT (BEAKER) (test llld=091) 0 % BASOPHILS RELATIVE PERCENT (BEAKER) (test ycdn=945) 0 % NEUTROPHILS ABSOLUTE COUNT (BEAKER) (test hkyz=091) 8.00 K/ L 1.78-5.38 LYMPHOCYTES ABSOLUTE COUNT (BEAKER) (test oblt=278) 0.84 K/ L 1.32-3.57 MONOCYTES ABSOLUTE COUNT (BEAKER) (test zdfy=166) 1.10 K/ L 0.30-0.82 EOSINOPHILS ABSOLUTE COUNT (BEAKER) (test reqo=749) 0.01 K/ L 0.04-0.54 BASOPHILS ABSOLUTE COUNT (BEAKER) (test rfup=935) 0.02 K/ L 0.01-0.08 IMMATURE GRANULOCYTES-RELATIVE PERCENT (BEAKER) (test surv=9350) 0 % 0-1 POCT-GLUCOSE [id number] 00:30:00* Test Item Value Reference Range Comments POC-GLUCOSE METER (BEAKER) (test ogwy=4049) 127 mg/dL 70-110 TESTED AT [place] [address] [id number] 17:29:00* Test Item Value Reference Range Comments POTASSIUM (BEAKER) (test ruvh=665) 3.3 meq/L 3.5-5.1 POCT-GLUCOSE [id number] 16:41:00* Test Item Value Reference Range Comments POC-GLUCOSE METER (BEAKER) (test xdwv=4622) 110 mg/dL 70-110 TESTED AT [place] [id number] POCT-GLUCOSE [id number] 10:53:00* Test Item Value Reference Range Comments POC-GLUCOSE METER (BEAKER) (test impx=7880) 110 mg/dL 70-110 TESTED AT [place] [address] [facility] [address] POCT-GLUCOSE [id number] 08:34:00* Test Item Value Reference Range Comments POC-GLUCOSE METER (BEAKER) (test prfx=7655) 117 mg/dL 70-110 TESTED AT [facility] [address] [facility] [address] POCT-GLUCOSE [id number] 06:49:00* Test Item Value Reference Range Comments POC-GLUCOSE METER (BEAKER) (test edwh=4756) 105 mg/dL 70-110 TESTED AT [address] [address] BASIC METABOLIC [id number] 03:28:00* Test Item Value Reference Range Comments SODIUM (BEAKER) (test cjjs=711) 142 meq/L 136-145 POTASSIUM (BEAKER) (test nvre=782) 3.3 meq/L 3.5-5.1 CHLORIDE (BEAKER) (test pery=100) 111 meq/L 98-107 CO2 (BEAKER) (test ibms=474) 22 meq/L 22-29 BLOOD UREA NITROGEN (BEAKER) (test xaoj=005) 19 mg/dL 7-21 CREATININE (BEAKER) (test pjpe=665) 0.73 mg/dL 0.57-1.25 GLUCOSE RANDOM (BEAKER) (test aict=821) 118 mg/dL 70-105 CALCIUM (BEAKER) (test gcik=483) 9.1 mg/dL 8.4-10.2 EGFR (BEAKER) (test zdbd=8794) 105 mL/min/1.73 sq m ESTIMATED GFR IS NOT ACCURATE CREATININE CLEARANCE IN PREDICTING GLOMERULAR FILTRATION RATE. ESTIMATED GFR IS NOT APPLICABLE FOR DIALYSIS PATIENTS. CBC W/PLT COUNT & AUTO [id number] 03:08:00* Test Item Value Reference Range Comments WHITE BLOOD CELL COUNT (BEAKER) (test ugco=875) 11.4 K/ L 3.5-10.5 RED BLOOD CELL COUNT (BEAKER) (test ekib=903) 4.71 M/ L 4.63-6.08 HEMOGLOBIN (BEAKER) (test gyzq=239) 15.3 GM/DL 13.7-17.5 HEMATOCRIT (BEAKER) (test eyfm=590) 45.0 % 40.1-51.0 MEAN CORPUSCULAR VOLUME (BEAKER) (test amjq=774) 95.5 fL 79.0-92.2 MEAN CORPUSCULAR HEMOGLOBIN (BEAKER) (test mcsi=374) 32.5 pg 25.7-32.2 MEAN CORPUSCULAR HEMOGLOBIN CONC (BEAKER) (test itkx=517) 34.0 GM/DL 32.3-36.5 RED CELL DISTRIBUTION WIDTH (BEAKER) (test slqa=112) 12.9 % 11.6-14.4 PLATELET COUNT (BEAKER) (test beks=394) 164 K/CU MM 150-450 MEAN PLATELET VOLUME (BEAKER) (test qvtt=876) 9.4 fL 9.4-12.4 NUCLEATED RED BLOOD CELLS (BEAKER) (test kqrp=952) 0 /100 WBC 0-0 NEUTROPHILS RELATIVE PERCENT (BEAKER) (test cupr=938) 80 % LYMPHOCYTES RELATIVE PERCENT (BEAKER) (test jwdb=209) 9 % MONOCYTES RELATIVE PERCENT (BEAKER) (test dwem=852) 11 % EOSINOPHILS RELATIVE PERCENT (BEAKER) (test ymsg=195) 0 % BASOPHILS RELATIVE PERCENT (BEAKER) (test fnav=684) 0 % NEUTROPHILS ABSOLUTE COUNT (BEAKER) (test sgds=053) 9.11 K/ L 1.78-5.38 LYMPHOCYTES ABSOLUTE COUNT (BEAKER) (test mkht=891) 0.97 K/ L 1.32-3.57 MONOCYTES ABSOLUTE COUNT (BEAKER) (test yhrq=422) 1.23 K/ L 0.30-0.82 EOSINOPHILS ABSOLUTE COUNT (BEAKER) (test eysy=669) 0.01 K/ L 0.04-0.54 BASOPHILS ABSOLUTE COUNT (BEAKER) (test ognq=513) 0.02 K/ L 0.01-0.08 IMMATURE GRANULOCYTES-RELATIVE PERCENT (BEAKER) (test lyia=6228) 1 % 0-1 POCT-GLUCOSE [id number] 23:51:00* Test Item Value Reference Range Comments POC-GLUCOSE METER (BEAKER) (test luws=0163) 120 mg/dL 70-110 TESTED AT [address] [address] POCT-GLUCOSE [id number] 17:21:00* Test Item Value Reference Range Comments POC-GLUCOSE METER (BEAKER) (test hizg=8826) 122 mg/dL 70-110 TESTED AT [facility] [address] [facility] [address] POCT-GLUCOSE [id number] 12:04:00* Test Item Value Reference Range Comments POC-GLUCOSE METER (BEAKER) (test ljdu=7554) 134 mg/dL 70-110 TESTED AT [place] [id number] [facility] [address] POCT-GLUCOSE [id number] 07:33:00* Test Item Value Reference Range Comments POC-GLUCOSE METER (BEAKER) (test qmid=5589) 137 mg/dL 70-110 TESTED AT [place] [id number] [facility] [address] [id number] 04:06:00* Test Item Value Reference Range Comments PHOSPHORUS (BEAKER) (test cxwv=464) 2.1 mg/dL 2.3-4.7 [id number] 04:06:00* Test Item Value Reference Range Comments MAGNESIUM (BEAKER) (test uhjl=458) 2.3 mg/dL 1.6-2.6 BASIC METABOLIC [id number] 04:06:00* Test Item Value Reference Range Comments SODIUM (BEAKER) (test deef=027) 139 meq/L 136-145 POTASSIUM (BEAKER) (test adhi=774) 3.6 meq/L 3.5-5.1 CHLORIDE (BEAKER) (test dmkv=036) 108 meq/L 98-107 CO2 (BEAKER) (test dzmm=592) 21 meq/L 22-29 BLOOD UREA NITROGEN (BEAKER) (test uohi=876) 18 mg/dL 7-21 CREATININE (BEAKER) (test jycn=414) 0.69 mg/dL 0.57-1.25 GLUCOSE RANDOM (BEAKER) (test drje=890) 140 mg/dL 70-105 CALCIUM (BEAKER) (test izfw=446) 9.3 mg/dL 8.4-10.2 EGFR (BEAKER) (test ydyr=8900) 112 mL/min/1.73 sq m ESTIMATED GFR IS NOT ACCURATE CREATININE CLEARANCE IN PREDICTING GLOMERULAR FILTRATION RATE. ESTIMATED GFR IS NOT APPLICABLE FOR DIALYSIS PATIENTS. CBC W/PLT COUNT & AUTO [id number] 03:26:00* Test Item Value Reference Range Comments WHITE BLOOD CELL COUNT (BEAKER) (test avzs=600) 10.3 K/ L 3.5-10.5 RED BLOOD CELL COUNT (BEAKER) (test zutw=174) 4.67 M/ L 4.63-6.08 HEMOGLOBIN (BEAKER) (test cram=897) 15.3 GM/DL 13.7-17.5 HEMATOCRIT (BEAKER) (test diix=149) 44.3 % 40.1-51.0 MEAN CORPUSCULAR VOLUME (BEAKER) (test oapi=011) 94.9 fL 79.0-92.2 MEAN CORPUSCULAR HEMOGLOBIN (BEAKER) (test yodx=081) 32.8 pg 25.7-32.2 MEAN CORPUSCULAR HEMOGLOBIN CONC (BEAKER) (test jops=387) 34.5 GM/DL 32.3-36.5 RED CELL DISTRIBUTION WIDTH (BEAKER) (test zevd=893) 12.9 % 11.6-14.4 PLATELET COUNT (BEAKER) (test dndu=676) 164 K/CU MM 150-450 MEAN PLATELET VOLUME (BEAKER) (test lklg=505) 8.9 fL 9.4-12.4 NUCLEATED RED BLOOD CELLS (BEAKER) (test ugjx=167) 0 /100 WBC 0-0 NEUTROPHILS RELATIVE PERCENT (BEAKER) (test dncw=093) 85 % LYMPHOCYTES RELATIVE PERCENT (BEAKER) (test nxfd=011) 7 % MONOCYTES RELATIVE PERCENT (BEAKER) (test ezua=505) 8 % EOSINOPHILS RELATIVE PERCENT (BEAKER) (test xqqi=905) 0 % BASOPHILS RELATIVE PERCENT (BEAKER) (test thfk=143) 0 % NEUTROPHILS ABSOLUTE COUNT (BEAKER) (test vbln=672) 8.71 K/ L 1.78-5.38 LYMPHOCYTES ABSOLUTE COUNT (BEAKER) (test rylk=436) 0.70 K/ L 1.32-3.57 MONOCYTES ABSOLUTE COUNT (BEAKER) (test oiul=280) 0.83 K/ L 0.30-0.82 EOSINOPHILS ABSOLUTE COUNT (BEAKER) (test xkug=215) 0.00 K/ L 0.04-0.54 BASOPHILS ABSOLUTE COUNT (BEAKER) (test szxz=685) 0.01 K/ L 0.01-0.08 IMMATURE GRANULOCYTES-RELATIVE PERCENT (BEAKER) (test sdqw=3005) 0 % 0-1 POCT-GLUCOSE [id number] 00:15:00* Test Item Value Reference Range Comments POC-GLUCOSE METER (BEAKER) (test spvb=0841) 160 mg/dL 70-110 TESTED AT [address] [address] [id number] 21:07:00* Test Item Value Reference Range Comments POTASSIUM (BEAKER) (test wkbs=785) 3.5 meq/L 3.5-5.1 [id number] 21:07:00* Test Item Value Reference Range Comments MAGNESIUM (BEAKER) (test bwce=339) 1.8 mg/dL 1.6-2.6 CT BRAIN WITHOUT IV CONTRAST - [id number] 20:44:00Reason for exam:->head traumaFINAL REPORT CT BRAIN WITHOUT IV CONTRAST - PORTABLE CLINICAL INDICATION: head trauma COMPARISON: January 16, 2018 TECHNIQUE: Noncontrast axial CT imaging of the brain and skull. DOSE REDUCTION: Dose modulation, iterative reconstruction, and/or weight-based adjustment of the mA/kV was utilized to reduce the radiation dose to as low as reasonably achievable. FINDINGS:Status post coiling of anterior to indicating artery [...] No interval detrimental change Signed: Victoria Delcid MDReport Verified Date/Time: 01/17/2018 20:44:45 Reading Location: [address] Neuro Reading Room -GLUCOSE [id number] 18:26:00* Test Item Value Reference Range Comments POC-GLUCOSE METER (BEAKER) (test ugsg=9708) 152 mg/dL 70-110 TESTED AT [address] [address] CBC W/PLT COUNT & AUTO [id number] 16:37:00* Test Item Value Reference Range Comments WHITE BLOOD CELL COUNT (BEAKER) (test ssvk=778) 11.4 K/ L 3.5-10.5 RED BLOOD CELL COUNT (BEAKER) (test vbaz=674) 4.85 M/ L 4.63-6.08 HEMOGLOBIN (BEAKER) (test qypk=184) 15.6 GM/DL 13.7-17.5 HEMATOCRIT (BEAKER) (test cryu=515) 45.4 % 40.1-51.0 MEAN CORPUSCULAR VOLUME (BEAKER) (test bheo=354) 93.6 fL 79.0-92.2 MEAN CORPUSCULAR HEMOGLOBIN (BEAKER) (test cohs=673) 32.2 pg 25.7-32.2 MEAN CORPUSCULAR HEMOGLOBIN CONC (BEAKER) (test vqig=089) 34.4 GM/DL 32.3-36.5 RED CELL DISTRIBUTION WIDTH (BEAKER) (test ivdt=203) 12.9 % 11.6-14.4 PLATELET COUNT (BEAKER) (test mast=929) 205 K/CU MM 150-450 MEAN PLATELET VOLUME (BEAKER) (test ijed=708) 9.2 fL 9.4-12.4 NUCLEATED RED BLOOD CELLS (BEAKER) (test jahg=830) 0 /100 WBC 0-0 NEUTROPHILS RELATIVE PERCENT (BEAKER) (test tvuz=602) 88 % LYMPHOCYTES RELATIVE PERCENT (BEAKER) (test hile=773) 5 % MONOCYTES RELATIVE PERCENT (BEAKER) (test obry=866) 6 % EOSINOPHILS RELATIVE PERCENT (BEAKER) (test stgv=336) 0 % BASOPHILS RELATIVE PERCENT (BEAKER) (test myvi=897) 0 % NEUTROPHILS ABSOLUTE COUNT (BEAKER) (test oetu=964) 10.04 K/ L 1.78-5.38 LYMPHOCYTES ABSOLUTE COUNT (BEAKER) (test vfen=089) 0.54 K/ L 1.32-3.57 MONOCYTES ABSOLUTE COUNT (BEAKER) (test nhqe=323) 0.73 K/ L 0.30-0.82 EOSINOPHILS ABSOLUTE COUNT (BEAKER) (test vjke=662) 0.00 K/ L 0.04-0.54 BASOPHILS ABSOLUTE COUNT (BEAKER) (test dosa=163) 0.01 K/ L 0.01-0.08 IMMATURE GRANULOCYTES-RELATIVE PERCENT (BEAKER) (test uryq=0067) 0 % 0-1 [id number] 16:18:00* Test Item Value Reference Range Comments POTASSIUM (BEAKER) (test fqds=502) 3.4 meq/L 3.5-5.1 POCT-GLUCOSE [id number] 12:26:00* Test Item Value Reference Range Comments POC-GLUCOSE METER (BEAKER) (test knpj=3096) 154 mg/dL 70-110 TESTED AT [address] [address] [id number] 10:11:00* Test Item Value Reference Range Comments POTASSIUM (BEAKER) (test oddr=637) 3.5 meq/L 3.5-5.1 POCT-GLUCOSE [id number] 05:55:00* Test Item Value Reference Range Comments POC-GLUCOSE METER (BEAKER) (test xixv=3140) 143 mg/dL 70-110 TESTED AT [address] [address] BASIC METABOLIC [id number] 04:28:00* Test Item Value Reference Range Comments SODIUM (BEAKER) (test cxvy=984) 140 meq/L 136-145 POTASSIUM (BEAKER) (test oxep=728) 3.4 meq/L 3.5-5.1 CHLORIDE (BEAKER) (test hdwr=237) 108 meq/L 98-107 CO2 (BEAKER) (test hocr=732) 25 meq/L 22-29 BLOOD UREA NITROGEN (BEAKER) (test fzyp=203) 11 mg/dL 7-21 CREATININE (BEAKER) (test bgib=497) 0.65 mg/dL 0.57-1.25 GLUCOSE RANDOM (BEAKER) (test aria=700) 134 mg/dL 70-105 CALCIUM (BEAKER) (test owdw=464) 9.1 mg/dL 8.4-10.2 EGFR (BEAKER) (test awpg=3139) 120 mL/min/1.73 sq m ESTIMATED GFR IS NOT ACCURATE CREATININE CLEARANCE IN PREDICTING GLOMERULAR FILTRATION RATE. ESTIMATED GFR IS NOT APPLICABLE FOR DIALYSIS PATIENTS. CBC W/PLT COUNT & AUTO [id number] 04:17:00* Test Item Value Reference Range Comments WHITE BLOOD CELL COUNT (BEAKER) (test feaf=286) 9.9 K/ L 3.5-10.5 RED BLOOD CELL COUNT (BEAKER) (test ofsj=845) 4.56 M/ L 4.63-6.08 HEMOGLOBIN (BEAKER) (test gwms=346) 14.9 GM/DL 13.7-17.5 HEMATOCRIT (BEAKER) (test uhzz=745) 43.2 % 40.1-51.0 MEAN CORPUSCULAR VOLUME (BEAKER) (test vuzk=811) 94.7 fL 79.0-92.2 MEAN CORPUSCULAR HEMOGLOBIN (BEAKER) (test rmbb=266) 32.7 pg 25.7-32.2 MEAN CORPUSCULAR HEMOGLOBIN CONC (BEAKER) (test rotp=868) 34.5 GM/DL 32.3-36.5 RED CELL DISTRIBUTION WIDTH (BEAKER) (test hzdf=108) 12.6 % 11.6-14.4 PLATELET COUNT (BEAKER) (test ouwg=315) 169 K/CU MM 150-450 MEAN PLATELET VOLUME (BEAKER) (test gaip=631) 9.5 fL 9.4-12.4 NUCLEATED RED BLOOD CELLS (BEAKER) (test owec=462) 0 /100 WBC 0-0 NEUTROPHILS RELATIVE PERCENT (BEAKER) (test txml=078) 85 % LYMPHOCYTES RELATIVE PERCENT (BEAKER) (test gxjd=681) 7 % MONOCYTES RELATIVE PERCENT (BEAKER) (test jinv=092) 7 % EOSINOPHILS RELATIVE PERCENT (BEAKER) (test rhtq=331) 0 % BASOPHILS RELATIVE PERCENT (BEAKER) (test duwc=423) 0 % NEUTROPHILS ABSOLUTE COUNT (BEAKER) (test chnt=874) 8.38 K/ L 1.78-5.38 LYMPHOCYTES ABSOLUTE COUNT (BEAKER) (test wcnx=449) 0.69 K/ L 1.32-3.57 MONOCYTES ABSOLUTE COUNT (BEAKER) (test zeao=272) 0.72 K/ L 0.30-0.82 EOSINOPHILS ABSOLUTE COUNT (BEAKER) (test ezyd=652) 0.00 K/ L 0.04-0.54 BASOPHILS ABSOLUTE COUNT (BEAKER) (test vxay=699) 0.01 K/ L 0.01-0.08 IMMATURE GRANULOCYTES-RELATIVE PERCENT (BEAKER) (test bbcv=5799) 1 % 0-1 POCT-GLUCOSE [id number] 04:06:00* Test Item Value Reference Range Comments POC-GLUCOSE METER (BEAKER) (test xgtr=3782) 145 mg/dL 70-110 TESTED AT [facility] [address] [facility] [address] POCT-GLUCOSE [id number] 20:25:00* Test Item Value Reference Range Comments POC-GLUCOSE METER (BEAKER) (test rpog=5266) 160 mg/dL 70-110 TESTED AT [facility] [address] [facility] [address] POCT-GLUCOSE [id number] 17:19:00* Test Item Value Reference Range Comments POC-GLUCOSE METER (BEAKER) (test gjcj=9592) 119 mg/dL 70-110 TESTED AT [facility] [address] [facility] [address] [address] BRAIN WITHOUT IV CONTRAST - [id number] 16:32:00Reason for exam:->SAH post coilFINAL REPORT CT head without contrast 01/16/2018 4:29 PM CLINICAL HISTORY: SAH post coil TECHNIQUE: Contiguous axial images through the head without contrast were obtained utilizing the portable CT unit. This examination was performed according to our departmental dose optimization program, which includes automated exposure control, adjustment of the mA and/or kV according to patient size, and/or use of iterated reconstruction technique. 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 There is been partial resorption of subarachnoid and intraventricular hemorrhage, with no new hemorrhage evident. There is no hydrocephalus or parenchymal herniation. The paranasal sinuses and tympanomastoid cavities are well-aerated. The skull is intact. IMPRESSION: Nonworrisome postprocedural appearance. Signed: Nicholas Silver Verified Date/Time: 01/16/2018 16:32:21 Reading Location: [facility] Radiology Reading Room , ANGIOGRAM, [id number] 15:52:00Reason for exam:-> Subarachnoid hemorrhageFINAL REPORT DATE: 01/15/2018 NAME: BREE HONG ATTENDING: Carlos Wise MD FINANCIAL MANAGEMENT ANALYST: Noe Curiel MD PREOPERATIVE DIAGNOSIS: Ruptured anterior communicating artery aneurysm POSTOPERATIVE DIAGNOSIS: Ruptured anterior communicating artery aneurysm PROCEDURE PERFORMED: 1. Diagnostic Cerebral and Cervical Angiogram2. Coiling of ruptured anterior communicating artery aneurysm, >1cm3. Rianna CT brain ANESTHESIA: GETA COMPLICATIONS: None ESTIMATED BLOOD LOSS: 30 cc ARTERIAL VESSELS STUDIED:*Left subclavian artery x 1*Brachiocephalic artery x 1*Right vertebral artery x 1*Right common carotid artery x 2*Left common carotid artery x 2*Left internal carotid artery x 17* - Rotational 3D DSA x 1 *Right common femoral artery x1 MATERIALS EMPLOYED:1. AXS Infinity LS2. AXS Catalyst 53. SL-10 microcatheter5. 4 Cypriot Berenstein catheter6. Bentson guidewire7. Terumo 0.035 LT glidewire9. Synchro standard 0.014 mxjoyreiw16. Target 360 SOFT 8mm x 20 cm11. TargetXL 360 SOFT 7 mm x 20 cm12. TargetXL 360 SOFT 6 mm x 20 cm (2)13. TargetXL 360 SOFT 4 mm x 8 cm14. Target 360 ULTRA 3 mm x 8 cm (2)15. Target 360 ULTRA 2 mm x 4 cm16. 6/7 Fr Mynx device INDICATIONS:The patient is a 72-year-old man with past medical history of hypertension, hyperlipidemia, prev iously repaired abdominal aortic aneurysm, severe peripheral arterial and miranda ry artery disease with multiple peripheral and cardiac stents who presented with acute onset headache. Subsequent CT and CT angiography consistent with a ruptur ed anterior communicating artery aneurysm. Patient planned for diagnostic cerebr al angiography with endovascular treatment. The indications for the procedure as well as the risks, benefits and alternatives to the procedure were discussed wi th the patient and the family. The risks discussed included but were not limited to stroke, intracranial hemorrhage, injury to the cervical femoral or aortic ve ssels, contrast reaction, kidney to toxicity, groin hematoma, weakness paralysis and even . They demonstrated understanding of the risk benefit profile and agreed to proceed. PROCEDURE:After appropriate consent was obtained, the patie nt was brought to the angiographic suite and cardiopulmonary monitoring was plac ed. The anesthesia team performed general anesthesia. After the appropriate line s were in place, a timeout was performed. A Rianna CT brain was performed, reconst ructed and interpreted at an outside workstation by the attending Dr. Wise. A s there was no evidence of worsened hydrocephalus, no EVD was placed. Both groin s were prepped and draped in the usual sterile fashion. After administration of 10 mL of 2% lidocaine, a micropuncture needle was used to perform a single wall puncture of the right common femoral artery, a micropuncture sheath was inserted , and an angled DSA angiogram was performed through the sheath. Once good locati on of the puncture site was confirmed, a 5 Cypriot x 25 cm sheath was inserted ov er a stiff Terumo glide wire in order to pass the severe tortuosity in the anna c artery. An Amplatz exchange length wire was inserted and the 5F sheath removed and the 6F Infinity was advanced over the Amplatz into the descending aorta, the wire was removed, the sheath was back bled and was maintained on heparinized s kimberlee flush throughout the remainder of the procedure. Using coaxial technique, a preflushed 5 Cypriot x 125cm diagnostic catheter on constant heparinized saline flush was advanced over the Glidewire into the descending aorta, the Glidewire was removed, the catheter back bled, flushed in usual fashion and the catheter w as maintained on heparinized flushed throughout duration of the case. Using coax ial technique, the catheter was advanced into the aortic arch and with the aid o f roadmapping, digital fluoroscopy, and careful guidewire manipulation, the righ t common carotid, right internal carotid, right vertebral artery, left common ca rotid, left internal carotid, left subclavian were selectively catheterized. Upo n each successive catheterization, digital subtraction angiography using the nani ropriate rate and volume of contrast in multiple projections was performed. Whtricia e in the left internal carotid artery, a rotational 3-D DSA angiogram was perfor med with reconstruction and interpretation performed at an outside workstation b y the attending physician Dr. Carlos Wise MD. These images were used to per form magnified obliques. FINDINGS:RIGHT COMMON FEMORAL ARTERY (DSA, PA)Tortuo us, heavily atherosclerotic and calcified common femoral artery with location of the puncture site above the bifurcation and below markers of the inguinal ligam ent. RIGHT COMMON CAROTID ARTERY (DSA, PA, LATERAL, CERVICAL)The distal cervical common carotid as well as the origins of the right internal and external carotid arteries are widely patent without evidence of ulceration or stenosis. RIGHT C OMMON CAROTID ARTERY (DSA, PA, LATERAL, HEAD)Normal distal cervical, petrous, ca vernous and supraclinoid internal carotid artery with physiological filling of t he MCA and JESSICA branches. There is reflux opacification of the anterior communica ting artery and contralateral anterior cerebral artery with with faint filling t o the neck of the anterior commuting artery aneurysm identified on CT angiograph y but the body and extent of the aneurysm is not well delineated. There is a sma ll outpouching in the expected area of the posterior beginning artery that likel y represents an infundibulum. Capillary phase and venous phase are unremarkable. No other vascular lesions are seen. There is no significant atherosclerosis or stenosis. The venous phase demonstrates patent transverse and sigmoid sinuses. B RACHIOCEPHALIC ARTERY (DSA, PA, ROADMAP)There is normal course and caliber of th e subclavian artery. There is a patent left vertebral artery origin, and visuali zed origins of the internal mamillary artery, thyrocervical and costocervical tr unks. RIGHT VERTEBRAL ARTERY (DSA, PA, LATERAL, MAGNIFIED OBLIQUE)Unremarkable distal cervical and intracranial vertebral artery with physiological filling of the basilar artery and its distal branches. There is normal filling of the ipsil ateral PICA, AICAs, SCAs and preanalytics team lead. There is contrast reflux into the left verteb ral artery with opacification of the left PICA. No aneurysms or other vascular l esions are seen. The capillary phase and venous phase are unremarkable. LEFT COM MON CAROTID ARTERY (DSA, PA, LATERAL, CERVICAL) The distal cervical common carot id as well as the origins of the left internal and external carotid arteries are widely patent without evidence of ulceration or stenosis. LEFT INTERNAL CAROTID ARTERY (DSA, PA, LATERAL, MAGNIFIED OBLIQUE)There is a 11 x 8 x 6 mm saccular a neurysm arising from the anterior communicating artery with a 4mm neck. Post-magalie atment, the dome is completely occluded and there is a 2mm residual neck and sta gnation of contrast in the small aneurysm residual. Normal distal cervical, darrius ous, cavernous and supraclinoid internal carotid artery with physiological filli ng of the MCA and JESSICA branches. Capillary phase and venous phase are unremarkabl e. No other vascular lesions are seen. There is no significant atherosclerosis o r stenosis. The venous phase demonstrates patent transverse sinuses. LEFT SUBCLA VIAN ARTERY (DSA, PA)There is normal course and caliber of the subclavian artery with physiological filling of its distal branches. The left vertebral artery is occluded at its origin and not visualized. ENDOVASCULAR INTERVENTION: Using co axial technique the Infinity long sheath was advanced into the left internal car otid artery over 5Fr Charles-2 and Glidewire with the aid of fluoroscopy, roadmappin g, and guidewire manipulation. We then obtained satisfactory views to visualize the neck, body, dome of the aneurysm. We then proceeded to advance a CAT5 interm ediate catheter, SL-10 microcatheter, and a Synchro microwire through the left i nternal carotid artery. The CAT 5 was stationed in the petrous carotid and the s ynchro and SL10 were advanced into the left anterior cerebral artery and then ca refully advanced the microcatheter into the body of the aneurysm. After the seco nd coil placement, 2000 units of heparin were administered, and subsequently hep danielle was administered after each subsequent coil for a total of 7000 units. Seq uentially we placed the following coils within the aneurysm with intervening isaiah ding catheter angiograms between each coil placement. 1. Target 360 SOFT 8mm x 20 cm2. TargetXL 360 SOFT 7 mm x 20 cm3. TargetXL 360 SOFT 6 mm x 20 cm (2)5. Ta rgetXL 360 SOFT 4 mm x 8 cm6. Target 360 ULTRA 3 mm x 8 cm (2)8. Target 360 ULTR A 2 mm x 4 cm Each of the intermediate catheter angiograms performed after coil deployment demonstrated patency of the parent artery and progressively improved embolization of the aneurysm. After satisfactory coil placement a whole head ang iogram was performed with a tiny residual filling near the aneurysm neck, patenc y of the parent vessel, and no evidence of complication. The sheath was removed and hemostasis achieved with a Mynx device. The patient tolerated the procedure well, was extubated and unchanged neurological status without groin hematoma and with good distal lower extremity pulses. [facility] be monitored as per protocol. IMPRESSION1. 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 FACULTY ATTESTATION: Bruce Arellano M.D., was present for the entirety of the procedure. I performed or d irectly supervised all aspects of the procedure. I performed all critical aspect s of the case. I interpreted the images and reported results. Signed: Frandy, J eremiah MDReport Verified Date/Time: 01/16/2018 15:52:50 Reading Location: [facility] Y026 Neuro Angio Reading Room [id number] 12:38:00* Test Item Value Reference Range Comments POTASSIUM (BEAKER) (test heva=063) 3.5 meq/L 3.5-5.1 Check Serum Potassium level 2 hours after oral potassium replacement completed o r 30 min after intravenous potassium replacement.POCT-GLUCOSE [id number] 05:57:00* Test Item Value Reference Range Comments POC-GLUCOSE METER (BEAKER) (test xosp=1529) 137 mg/dL 70-110 TESTED AT [facility] [address] [place] [id number] BASIC METABOLIC [id number] 05:11:00* Test Item Value Reference Range Comments SODIUM (BEAKER) (test qfre=490) 141 meq/L 136-145 POTASSIUM (BEAKER) (test ypdb=704) 3.5 meq/L 3.5-5.1 CHLORIDE (BEAKER) (test bveh=172) 110 meq/L 98-107 CO2 (BEAKER) (test ehvk=931) 23 meq/L 22-29 BLOOD UREA NITROGEN (BEAKER) (test hdkm=011) 11 mg/dL 7-21 CREATININE (BEAKER) (test fqal=257) 0.70 mg/dL 0.57-1.25 GLUCOSE RANDOM (BEAKER) (test atku=086) 132 mg/dL 70-105 CALCIUM (BEAKER) (test onrt=030) 8.6 mg/dL 8.4-10.2 EGFR (BEAKER) (test evqj=1168) 111 mL/min/1.73 sq m ESTIMATED GFR IS NOT ACCURATE CREATININE CLEARANCE IN PREDICTING GLOMERULAR FILTRATION RATE. ESTIMATED GFR IS NOT APPLICABLE FOR DIALYSIS PATIENTS. CBC W/PLT COUNT & AUTO [id number] 04:56:00* Test Item Value Reference Range Comments WHITE BLOOD CELL COUNT (BEAKER) (test bxjv=659) 10.5 K/ L 3.5-10.5 RED BLOOD CELL COUNT (BEAKER) (test nxwa=436) 4.57 M/ L 4.63-6.08 HEMOGLOBIN (BEAKER) (test tmnl=744) 14.8 GM/DL 13.7-17.5 HEMATOCRIT (BEAKER) (test mksv=367) 43.3 % 40.1-51.0 MEAN CORPUSCULAR VOLUME (BEAKER) (test cljr=444) 94.7 fL 79.0-92.2 MEAN CORPUSCULAR HEMOGLOBIN (BEAKER) (test fkun=583) 32.4 pg 25.7-32.2 MEAN CORPUSCULAR HEMOGLOBIN CONC (BEAKER) (test bmdm=664) 34.2 GM/DL 32.3-36.5 RED CELL DISTRIBUTION WIDTH (BEAKER) (test pewq=999) 12.6 % 11.6-14.4 PLATELET COUNT (BEAKER) (test gdjs=125) 183 K/CU MM 150-450 MEAN PLATELET VOLUME (BEAKER) (test ajea=224) 9.4 fL 9.4-12.4 NUCLEATED RED BLOOD CELLS (BEAKER) (test ihxx=114) 0 /100 WBC 0-0 NEUTROPHILS RELATIVE PERCENT (BEAKER) (test skcc=440) 87 % LYMPHOCYTES RELATIVE PERCENT (BEAKER) (test zgsq=310) 6 % MONOCYTES RELATIVE PERCENT (BEAKER) (test hasy=661) 7 % EOSINOPHILS RELATIVE PERCENT (BEAKER) (test xlca=533) 0 % BASOPHILS RELATIVE PERCENT (BEAKER) (test zksy=098) 0 % NEUTROPHILS ABSOLUTE COUNT (BEAKER) (test skhy=019) 9.13 K/ L 1.78-5.38 LYMPHOCYTES ABSOLUTE COUNT (BEAKER) (test vnhf=520) 0.61 K/ L 1.32-3.57 MONOCYTES ABSOLUTE COUNT (BEAKER) (test fxmg=032) 0.69 K/ L 0.30-0.82 EOSINOPHILS ABSOLUTE COUNT (BEAKER) (test vnrn=651) 0.00 K/ L 0.04-0.54 BASOPHILS ABSOLUTE COUNT (BEAKER) (test rjix=514) 0.02 K/ L 0.01-0.08 IMMATURE GRANULOCYTES-RELATIVE PERCENT (BEAKER) (test koaa=7578) 0 % 0-1 POCT-GLUCOSE [id number] 23:42:00* Test Item Value Reference Range Comments POC-GLUCOSE METER (BEAKER) (test yfyc=0134) 135 mg/dL 70-110 TESTED AT [address] [address] TROPONIN [id number] 18:26:00* Test Item Value Reference Range Comments TROPONIN I (BEAKER) (test yuwv=786) < ng/mL 0.00-0.03 Troponin I (TnI) levels must be interpreted in the context of the presenting sym ptoms and the clinical findings. Elevated TnI levels indicate myocardial damage, but are not specific for ischemic heart disease. Elevated TnI levels are seen in patients with other cardiac conditions (including myocarditis and congestive h eart failure), and slight TnI elevations occur in patients with other conditions , including sepsis, renal failure, acidosis, acute neurological disease, and per sistent tachyarrhythmia.POCT-GLUCOSE [id number] 17:45:00* Test Item Value Reference Range Comments POC-GLUCOSE METER (BEAKER) (test vkeq=0929) 123 mg/dL 70-110 TESTED AT [place] [address] [id number] 15:16:00* Test Item Value Reference Range Comments ACTIVATED CLOTTING TIME (BEAKER) (test dlie=320) 219 sec TESTED AT [place] [id number] PLATELET AGGREGATION: FUNCTION [id number] 13:54:00* Test Item Value Reference Range Comments WEAK ADP RESULT(BEAKER) (test vfob=8738) 41 % 60-91 PLATELET FUNCTION SCREEN INTERP (BEAKER) (test gysk=4191) 40-49% indicates moderate platelet dysfunction [id number] (BEAKER) (test xzoe=6669) Marjorie Buckner MD (electronic signature) PLATELET COUNT AGG (BEAKER) (test nkpl=9355) 174 K/CU MM 150-450 Platelet Function Screen results may be falsely low with platelet counts< 100,000/cu mm.BASIC METABOLIC [id number] 07:14:00* Test Item Value Reference Range Comments SODIUM (BEAKER) (test zgdg=110) 143 meq/L 136-145 POTASSIUM (BEAKER) (test pxih=200) 3.9 meq/L 3.5-5.1 CHLORIDE (BEAKER) (test olnj=679) 108 meq/L 98-107 CO2 (BEAKER) (test ycgw=044) 26 meq/L 22-29 BLOOD UREA NITROGEN (BEAKER) (test kzdl=464) 13 mg/dL 7-21 CREATININE (BEAKER) (test ixrd=901) 0.77 mg/dL 0.57-1.25 GLUCOSE RANDOM (BEAKER) (test kcta=587) 97 mg/dL 70-105 CALCIUM (BEAKER) (test jjvm=773) 10.1 mg/dL 8.4-10.2 EGFR (BEAKER) (test fksx=9296) 99 mL/min/1.73 sq m ESTIMATED GFR IS NOT ACCURATE CREATININE CLEARANCE IN PREDICTING GLOMERULAR FILTRATION RATE. ESTIMATED GFR IS NOT APPLICABLE FOR DIALYSIS PATIENTS. Specimen slightly ictericPOCT-GLUCOSE [id number] 06:20:00* Test Item Value Reference Range Comments POC-GLUCOSE METER (BEAKER) (test rffh=7477) 110 mg/dL 70-110 TESTED AT [facility] [address] [facility] [address] URINALYSIS W/ [id number] 05:57:00* Test Item Value Reference Range Comments COLOR (BEAKER) (test aben=661) Light Yellow CLARITY (BEAKER) (test tpks=435) Clear SPECIFIC GRAVITY UA (BEAKER) (test voph=608) 1.010 1.001-1.035 PH UA (BEAKER) (test zrmb=505) 8.0 5.0-8.0 PROTEIN UA (BEAKER) (test ezom=436) Negative Negative GLUCOSE UA (BEAKER) (test pgtb=936) Negative Negative KETONES UA (BEAKER) (test aasd=026) Negative Negative BILIRUBIN UA (BEAKER) (test gism=562) Negative Negative BLOOD UA (BEAKER) (test imbt=658) Negative Negative NITRITE UA (BEAKER) (test vmjq=300) Negative Negative LEUKOCYTE ESTERASE UA (BEAKER) (test zvlm=460) Negative Negative UROBILINOGEN UA (BEAKER) (test hkra=091) 0.2 mg/dL 0.2-1.0 RBC UA (BEAKER) (test pfvx=785) 0 /HPF WBC UA (BEAKER) (test fvuk=052) 0 /HPF SOURCE(BEAKER) (test zyrp=9201) CBC W/PLT COUNT & AUTO [id number] 05:35:00* Test Item Value Reference Range Comments WHITE BLOOD CELL COUNT (BEAKER) (test xaiv=176) 7.4 K/ L 3.5-10.5 RED BLOOD CELL COUNT (BEAKER) (test vjmn=336) 5.11 M/ L 4.63-6.08 HEMOGLOBIN (BEAKER) (test earu=373) 16.5 GM/DL 13.7-17.5 HEMATOCRIT (BEAKER) (test srhh=094) 48.1 % 40.1-51.0 MEAN CORPUSCULAR VOLUME (BEAKER) (test bhck=155) 94.1 fL 79.0-92.2 MEAN CORPUSCULAR HEMOGLOBIN (BEAKER) (test lsbx=661) 32.3 pg 25.7-32.2 MEAN CORPUSCULAR HEMOGLOBIN CONC (BEAKER) (test gwks=665) 34.3 GM/DL 32.3-36.5 RED CELL DISTRIBUTION WIDTH (BEAKER) (test wnts=296) 12.5 % 11.6-14.4 PLATELET COUNT (BEAKER) (test jutg=792) 203 K/CU MM 150-450 MEAN PLATELET VOLUME (BEAKER) (test ivkj=877) 9.2 fL 9.4-12.4 NUCLEATED RED BLOOD CELLS (BEAKER) (test degx=827) 0 /100 WBC 0-0 NEUTROPHILS RELATIVE PERCENT (BEAKER) (test thjr=767) 78 % LYMPHOCYTES RELATIVE PERCENT (BEAKER) (test bcol=121) 11 % MONOCYTES RELATIVE PERCENT (BEAKER) (test winx=007) 9 % EOSINOPHILS RELATIVE PERCENT (BEAKER) (test cbjm=713) 2 % BASOPHILS RELATIVE PERCENT (BEAKER) (test meuk=527) 0 % NEUTROPHILS ABSOLUTE COUNT (BEAKER) (test tpnd=159) 5.76 K/ L 1.78-5.38 LYMPHOCYTES ABSOLUTE COUNT (BEAKER) (test ffpb=501) 0.79 K/ L 1.32-3.57 MONOCYTES ABSOLUTE COUNT (BEAKER) (test hrvl=005) 0.63 K/ L 0.30-0.82 EOSINOPHILS ABSOLUTE COUNT (BEAKER) (test xrsj=457) 0.17 K/ L 0.04-0.54 BASOPHILS ABSOLUTE COUNT (BEAKER) (test bpxh=875) 0.03 K/ L 0.01-0.08 IMMATURE GRANULOCYTES-RELATIVE PERCENT (BEAKER) (test cadm=1406) 0 % 0-1 CT, CTAIO [id number] 02:09:00FINAL REPORT CLINICAL HISTORY: Intracranial hemorrhage TECHNIQUE: Initially, [...] and mastoid air cells are clear. CTA head:Mild stenosis of the bilatera l V4 vertebral artery secondary to atherosclerosis. The basilar and bilateral po sterior cerebral arteries are patent. Atherosclerotic calcifications of the bila teral carotid siphons resulting in mild flow-limiting stenosis in the supraclino id segments. The bilateral middle cerebral arteries are patent. There is a 1.1 x 5.3 x 4.4 cm aneurysm arising from the anterior communicating artery at the cira ction of the origin of the A2 left anterior cerebral artery. The neck measures a pproximately 4 mm. The bilateral anterior cerebral arteries are patent. CTA neck :The major intradural venous sinuses are patent. Common origin of the right brac hiocephalic and left common carotid artery. The left vertebral artery originates from the aortic arch. Right dominant vertebrobasilar system. There is no stenos is of the proximal right internal carotid artery by NASCET criteria. Retrophary ngeal course of the right internal carotid artery. There is no stenosis of the p roximal left internal carotid artery by NASCET criteria. Mild stenosis of the origin of the right vertebral artery.Otherwise the vertebral arteries in the ne ck are patent. There are dorsal spondylitic changes in the cervical spine. Ther e are scattered subcentimeter lymph nodes in the neck. Soft tissues of the neck are normal. The visualized lung apices are clear. IMPRESSION:CT head:Extensive subarachnoid hemorrhage within the suprasellar cistern extending into the inter hemispheric fissure, as well as the prepontine and interpeduncular cistern exten ding into the bilateral sylvian fissures. Lucency in the left subinsular region without transcortical extension may be related to chronic microvascular ischemic changes however acute infarction cannot be excluded. subcutaneous soft tissue stranding over the left supraorbital region may represent contusion, correlate clinically. CTA head:There is a 1.1 x 5.3 x 4.4 cm aneurysm arising from the a nterior communicating artery at the junction of the origin of the A2 left anteri or cerebral artery. The neck measures approximately 4 mm. Mild stenosis of the V4 segments of the bilateral vertebral arteries and bilateral supraclinoid inter nal carotid arteries secondary to atherosclerosis. CTA neck:Mild stenosis of the origin of the right vertebral artery otherwise there is no evidence of hemodyna mically significant stenosis in the cervical carotid or vertebral arteries by NA SCET criteria. The findings were discussed with nurse on 7S5 at the time of dict ation who will relay them to the physician. Signed: Kaylynn Lawrence rt Verified Date/Time: 01/15/2018 02:09:39 Reading Location: [address] Neuro Reading Room , CAROT[place], [id number] 02:09:00FINAL REPORT CLINICAL HISTORY: Intracranial hemorrhage TECHNIQUE: Initially, noncontrast head CT images were performed. Contiguous contrast-enhanced axial images through the neck followed by axial images through the head with coronal and sagittal reformations to assess the arterial circulation. 3-D reconstructions were performed using a volume rendered technique separately on a workstation. This exam was performed according to the departmental dose opti mization program which includes automated exposure control, adjustment of the mA and/or kV according to the patient size, and/or use of an iterative reconstruct ion technique. COMPARISON: None available FINDINGS: Extensive subarachnoid hemor rhage within the suprasellar cistern extending into the interhemispheric fissure , as well as the prepontine and interpeduncular cistern extending into the bilat eral sylvian fissures. There is no definite intraventricular hemorrhage. Intracr anial vascular calcifications. Chronic microvascular ischemic changes. Lucency i n the left subinsular region without transcortical extension may be related to c hronic microvascular ischemic changes however acute infarction cannot be exclude d. Ventricles are normal in size. Subcutaneous soft tissue stranding over the le ft supraorbital region may represent contusion, correlate clinically. Paranasal sinuses and mastoid air cells are clear. CTA head:Mild stenosis of the bilatera l V4 vertebral artery secondary to atherosclerosis. The basilar and bilateral po sterior cerebral arteries are patent. Atherosclerotic calcifications of the bila teral carotid siphons resulting in mild flow-limiting stenosis in the supraclino id segments. The bilateral middle cerebral arteries are patent. There is a 1.1 x 5.3 x 4.4 cm aneurysm arising from the anterior communicating artery at the cira ction of the origin of the A2 left anterior cerebral artery. The neck measures a pproximately 4 mm. The bilateral anterior cerebral arteries are patent. CTA neck :The major intradural venous sinuses are patent. Common origin of the right brac hiocephalic and left common carotid artery. The left vertebral artery originates from the aortic arch. Right dominant vertebrobasilar system. There is no stenos is of the proximal right internal carotid artery by NASCET criteria. Retrophary ngeal course of the right internal carotid artery. There is no stenosis of the p roximal left internal carotid artery by NASCET criteria. Mild stenosis of the origin of the right vertebral artery.Otherwise the vertebral arteries in the ne ck are patent. There are dorsal spondylitic changes in the cervical spine. Ther e are scattered subcentimeter lymph nodes in the neck. Soft tissues of the neck are normal. The visualized lung apices are clear. IMPRESSION:CT head:Extensive subarachnoid hemorrhage within the suprasellar cistern extending into the inter hemispheric fissure, as well as the prepontine and interpeduncular cistern exten ding into the bilateral sylvian fissures. Lucency in the left subinsular region without transcortical extension may be related to chronic microvascular ischemic changes however acute infarction cannot be excluded. subcutaneous soft tissue stranding over the left supraorbital region may represent contusion, correlate clinically. CTA head:There is a 1.1 x 5.3 x 4.4 cm aneurysm arising from the a nterior communicating artery at the junction of the origin of the A2 left anteri or cerebral artery. The neck measures approximately 4 mm. Mild stenosis of the V4 segments of the bilateral vertebral arteries and bilateral supraclinoid inter nal carotid arteries secondary to atherosclerosis. CTA neck:Mild stenosis of the origin of the right vertebral artery otherwise there is no evidence of hemodyna mically significant stenosis in the cervical carotid or vertebral arteries by NA SCET criteria. The findings were discussed with nurse on 7S5 at the time of dict ation who will relay them to the physician. Signed: Kaylynn Lawrence rt Verified Date/Time: 01/15/2018 02:09:39 Reading Location: [address] Neuro Reading Room [id number] 01:30:00* Test Item Value Reference Range Comments PARTIAL THROMBOPLASTIN TIME (BEAKER) (test vllj=832) 29.2 seconds 22.5-36.0 PROTHROMBIN TIME/[id number] 01:29:00* Test Item Value Reference Range Comments PROTIME (BEAKER) (test miya=308) 14.2 seconds 11.7-14.7 INR (BEAKER) (test nyjx=882) 1.1 <=5.9 RECOMMENDED COUMADIN/WARFARIN INR THERAPY RANGESSTANDARD DOSE: 2.0 - 3.0 Inclu antony: PROPHYLAXIS for venous thrombosis, systemic embolization; TREATMENT for neymar ous thrombosis and/or pulmonary embolus.HIGH RISK: Target INR is 2.5-3.5 for pat ients with mechanical heart valves.TROPONIN [id number] 01:03:00* Test Item Value Reference Range Comments TROPONIN I (BEAKER) (test zbzz=350) 0.01 ng/mL 0.00-0.03 Troponin I (TnI) levels must be interpreted in the context of the presenting sym ptoms and the clinical findings. Elevated TnI levels indicate myocardial damage, but are not specific for ischemic heart disease. Elevated TnI levels are seen in patients with other cardiac conditions (including myocarditis and congestive h eart failure), and slight TnI elevations occur in patients with other conditions , including sepsis, renal failure, acidosis, acute neurological disease, and per sistent tachyarrhythmia.BASIC METABOLIC [id number] 01:01:00* Test Item Value Reference Range Comments SODIUM (BEAKER) (test phwm=712) 137 meq/L 136-145 POTASSIUM (BEAKER) (test xgpx=332) 4.1 meq/L 3.5-5.1 CHLORIDE (BEAKER) (test qltj=582) 104 meq/L 98-107 CO2 (BEAKER) (test nemo=306) 25 meq/L 22-29 BLOOD UREA NITROGEN (BEAKER) (test onxm=817) 17 mg/dL 7-21 CREATININE (BEAKER) (test ghdz=579) 0.78 mg/dL 0.57-1.25 GLUCOSE RANDOM (BEAKER) (test kbwu=236) 98 mg/dL 70-105 CALCIUM (BEAKER) (test mtny=079) 9.7 mg/dL 8.4-10.2 EGFR (BEAKER) (test oaan=1107) 98 mL/min/1.73 sq m ESTIMATED GFR IS NOT ACCURATE CREATININE CLEARANCE IN PREDICTING GLOMERULAR FILTRATION RATE. ESTIMATED GFR IS NOT APPLICABLE FOR DIALYSIS PATIENTS. CBC W/PLT COUNT & AUTO [id number] 00:35:00* Test Item Value Reference Range Comments WHITE BLOOD CELL COUNT (BEAKER) (test pvbu=295) 6.4 K/ L 3.5-10.5 RED BLOOD CELL COUNT (BEAKER) (test yqdu=477) 4.93 M/ L 4.63-6.08 HEMOGLOBIN (BEAKER) (test fvss=486) 16.5 GM/DL 13.7-17.5 HEMATOCRIT (BEAKER) (test svfg=838) 46.2 % 40.1-51.0 MEAN CORPUSCULAR VOLUME (BEAKER) (test afnh=014) 93.7 fL 79.0-92.2 MEAN CORPUSCULAR HEMOGLOBIN (BEAKER) (test cozk=130) 33.5 pg 25.7-32.2 MEAN CORPUSCULAR HEMOGLOBIN CONC (BEAKER) (test bzdn=238) 35.7 GM/DL 32.3-36.5 RED CELL DISTRIBUTION WIDTH (BEAKER) (test mtbt=835) 12.2 % 11.6-14.4 PLATELET COUNT (BEAKER) (test ibhr=503) 127 K/CU MM 150-450 MEAN PLATELET VOLUME (BEAKER) (test bjqq=591) 9.4 fL 9.4-12.4 NUCLEATED RED BLOOD CELLS (BEAKER) (test kdos=564) 0 /100 WBC 0-0 NEUTROPHILS RELATIVE PERCENT (BEAKER) (test uzff=222) 72 % LYMPHOCYTES RELATIVE PERCENT (BEAKER) (test pynk=041) 15 % MONOCYTES RELATIVE PERCENT (BEAKER) (test bxly=150) 9 % EOSINOPHILS RELATIVE PERCENT (BEAKER) (test jsqv=636) 3 % BASOPHILS RELATIVE PERCENT (BEAKER) (test xkwd=772) 1 % NEUTROPHILS ABSOLUTE COUNT (BEAKER) (test dzye=310) 4.60 K/ L 1.78-5.38 LYMPHOCYTES ABSOLUTE COUNT (BEAKER) (test ljnf=831) 0.97 K/ L 1.32-3.57 MONOCYTES ABSOLUTE COUNT (BEAKER) (test tpgn=545) 0.58 K/ L 0.30-0.82 EOSINOPHILS ABSOLUTE COUNT (BEAKER) (test ygbk=960) 0.17 K/ L 0.04-0.54 BASOPHILS ABSOLUTE COUNT (BEAKER) (test jntv=763) 0.03 K/ L 0.01-0.08 IMMATURE GRANULOCYTES-RELATIVE PERCENT (BEAKER) (test dzoy=3845) 0 % 0-1 CT BRAIN [id number] 20:05:00 [place] [id number] Patient Name: BREE HONG MR #: [id number] : 1945 Age/Sex: 72/M Req #: [id number] Adm Physician: Ordered by: HARSHA CAMARENA MD Report #: [id number] Location: ER Room/Bed: Procedure: 1204-[address]/CT BRAIN WO Exam Date: Exam Time: REPORT STATUS: Signed EXAMINATION: Head CT without contrast. HISTORY:Dizziness and hypertension. COMPARISO N:None. TECHNIQUE: Multidetector axial images were obtained from the foramen m agnum to the vertex without contrast. The images were reconstructed using brai n and bone algorithms. Thin section brain images were reformatted into miranda l and sagittal planes. Dose modulation, iterative reconstruction, and/or katie ght based adjustment of the mA/kV was utilized to reduce the radiation dose to as low as reasonably achievable. Intravenous contrast: None IMAGE QUALITY: Acceptable. FINDINGS: Skull/scalp: No lytic or blastic. les ions. No surgical changes. Parenchyma/extra-axial space: Large acute suba rachnoid hemorrhage centered in the basilar cistern, particularly involving pr emedullary, prepontine, perimesencephalic cistern, bilateral sylvian fissure, suprasellar cistern and anterior interhemispheric fissure. There is a large gl obular hemorrhage in the right paramedian aspect of the anterior interhemisphe janusz fissure that approximately measures 1.7 x 1.5 x 1.6 cm (SAT) raising possi bility of rupture of aneurysm at the level of the anterior communicating arter y. Nonspecific few, scattered supratentorial white matter patchy hypodensity a re likely related to small vessel ischemic changes. No mass or acute major v ascular territorial infarct. No midline shift or brain herniation. Arter ies: Atherosclerotic calcification in bilateral carotid siphon and V4 segment of the vertebral arteries. Dural sinuses: No abnormal density suggestive o f thrombosis. Ventricles: Mild compensated dilatation due to volume loss. No acute hydrocephalus. Brain volume: Normal for age. Craniocervi carina junction: No mass, Chiari malformation, or basilar invagination. Christine la: No mass, effacement of suprasellar cistern due to acute subarachnoid hemor rhage. Paranasal/mastoid sinuses: Imaged portions unremarkable. I MPRESSION: 1. Large diffuse acute subarachnoid hemorrhage centered in the b asilar cistern and anterior interhemispheric fissure, with approximately 1.7 c m hemorrhage in the right paramedian aspect of anterior interhemispheric fissu re raises concern for possible rupture of anterior communicating artery aneury sm given the location. Recommendation: CTA head and neurosurgery consultatio n. 2. Mild supratentorial white matter microvascular ischemic changes and m ild generalized age-related cerebral volume loss. Critical findings were informed to ER physician Dr. Camarena by phone at 8:07 PM on 01/15/2016. Signed by: Dr. Alisia Taylor M.D. on 01/14/2018 8:16 PM Dictated By: Jonah TAYLOR MD 15 Transcribed By: BULL on 01/14/182015 COPY TO: HARSHA CAMARENA MD
[2018-09-05] MEDS ORDERED: LIDOCAINE HCL 2% LOCAL 20 ML VIAL ONE (08:28)
[2018-09-05] MEDS ORDERED: HEPARIN SOD/SOD CHLORIDE 2,000 ML ONE (08:28)
[2018-09-05] MEDS ORDERED: HEPARIN SOD (PORCINE) 1000 UNIT/ML 30ML ONE (08:28)
[2018-09-05] MEDS ORDERED: IOPAMIDOL 370 MG/ML 200 ML INFUS..BTL INJ ONE ×3 (08:30→09:49)
[2018-09-05] MEDS ORDERED: SODIUM CHLORIDE 0.9% 1000ML 0 ML ONE (08:30)
[2018-09-05] MEDS ORDERED: NITROGLYCERIN/D5W 200 MCG/ML 250 ML ONE (08:31)
[2018-09-05] MEDS ORDERED: MIDAZOLAM HCL 2 MG/2 ML VIAL ONE ×2 (08:34→09:42)
[2018-09-05] MEDS ORDERED: FENTANYL CITRATE/PF 100MCG/2 ML INJ ONE (08:35)
[2018-09-05] MEDS ORDERED: BIVALRIUDIN 250 MG/VIAL VIAL IV ONE (09:12)
[2018-09-05] MEDS ORDERED: SODIUM CHLORIDE 0.9% 50ML 50 ML ONE (09:13)
[2018-09-05] MEDS ORDERED: PRASUGREL 10 MG TAB ONE (09:37)
[2018-09-05] MEDS ORDERED: ASPIRIN 325 MG TAB ONE (09:37)
--- NOTE | 2018-09-05 10:00 | NUR ---
1000a Bedside report received from Shai REUDA. Alert oriented and appropriate, PERRLA, respirations even and unlabored to room air. Pulses x4 extremities equal and strong. Pedal pulses PT/DP 4 palpable and marked. Cap fill brisk < 3 sec. Skin warm and dry integrity appears D/I. IV 20g to left hand, presents healthy w/o s/s of infiltration or complaint. Abdomen soft and supple. pt offered toileting, denies need to urinate or defecate. No personal affects with patient. Family Midge . Pt and family verbalizes understanding of POC. Rt sheath intact and secured with with suture. No signs hematoma or oozing. Notified House Lucinda Sandhu Rn necessity for bed Tele/Obsv. approx. 1pm sheath pull occurring at 1215pm, Angio max drip completed 10:15 switch to 75cch 300cc left in iv bag NS Currently w/o complaint of pain or need. Family at bedside HOB down aware of POC and bedrest 6pm. ds/rn
--- OUTSIDE RECORDS SUMMARY | 2018-09-05 10:48 | XMS REPORT | Clinical Summary ---
Author Author [facility] Address Unknown Phone Unavailable Care Team Providers Care Fire Information Officer Name Role Phone PCP Unavailable Allergies No [...] Delirium due to another medical condition 01/14/2018 [facility] General Internal Medicine - Encounter 01/31/2018 after [...] Taken Vital Sign Reading 01/31/2018 11:30 AM [employer] Blood Pressure 127/74 01/31/2018 11:30 AM [employer] Pulse 50 01/31/2018 11:30 AM [employer] Temperature 36.1 C (97 F) 01/31/2018 11:30 AM [employer] Respiratory Rate 18 01/31/2018 11:30 AM [employer] Oxygen Saturation 96% 01/28/2018 12:02 AM [employer] Inhaled Oxygen 21% Concentration 01/24/2018 4:00 AM [employer] Weight 79.8 kg (175 lb 14.8 oz) 01/15/2018 1:00 AM [employer] Height 167.6 cm (5' 6") 01/24/2018 4:00 AM [employer] Body Mass Index 28.4 Plan of Treatment Not on file Procedures Comments Procedure Name Priority Date/Time Associated Diagnosis REPORT OF PROCEDURE - 02/18/2018 ENDOSCOPY SCAN 11:20 AM [employer] RHYTHM STRIP - SCAN 02/18/2018 11:20 AM [employer] POCT-GLUCOSE METER Routine 01/31/2018 11:48 AM [employer] POCT-GLUCOSE METER Routine 01/31/2018 8:13 AM [employer] POCT-GLUCOSE METER Routine 01/30/2018 9:16 PM [employer] POCT-GLUCOSE METER Routine 01/30/2018 6:02 PM [employer] POCT-GLUCOSE METER Routine 01/30/2018 12:37 PM [employer] POCT-GLUCOSE METER Routine 01/29/2018 8:34 PM [employer] POCT-GLUCOSE METER Routine 01/29/2018 5:43 PM [employer] POCT-GLUCOSE METER Routine 01/29/2018 8:44 AM [employer] CBC W/PLT COUNT & AUTO SHAHID 01/29/2018 DIFFERENTIAL 4:41 AM [employer] CBC W/PLT COUNT & AUTO SHAHID 01/29/2018 DIFFERENTIAL 4:41 AM [employer] BASIC METABOLIC PANEL (7) Routine 01/29/2018 4:41 AM [employer] POCT-GLUCOSE METER Routine 01/28/2018 9:18 PM [employer] POCT-GLUCOSE METER Routine 01/28/2018 5:04 PM [employer] POCT-GLUCOSE METER Routine 01/28/2018 7:58 AM [employer] CBC W/PLT COUNT & AUTO SHAHID 01/28/2018 DIFFERENTIAL 4:55 AM [employer] CBC W/PLT COUNT & AUTO SHAHID 01/28/2018 DIFFERENTIAL 4:55 AM [employer] BASIC METABOLIC PANEL (7) Routine 01/28/2018 4:55 AM [employer] POCT-GLUCOSE METER Routine 01/27/2018 8:48 PM [employer] POCT-GLUCOSE METER Routine 01/27/2018 5:56 PM [employer] POCT-GLUCOSE METER Routine 01/27/2018 2:34 PM [employer] ECHOCARDIOGRAM REPORT - 01/27/2018 SCAN 1:20 PM [employer] POCT-GLUCOSE METER Routine 01/27/2018 7:33 AM [employer] POCT-GLUCOSE METER Routine 01/27/2018 6:02 AM [employer] CBC (HEMOGRAM ONLY) Routine 01/27/2018 3:53 AM [employer] MAGNESIUM Routine 01/27/2018 3:53 AM [employer] BASIC METABOLIC PANEL (7) Routine 01/27/2018 3:53 AM [employer] POCT-GLUCOSE METER Routine 01/26/2018 11:39 PM [employer] POCT-GLUCOSE METER Routine 01/26/2018 5:42 PM [employer] POCT-GLUCOSE METER Routine 01/26/2018 6:07 AM [employer] MAGNESIUM Routine 01/26/2018 4:16 AM [employer] BASIC METABOLIC PANEL (7) Routine 01/26/2018 4:16 AM [employer] POCT-GLUCOSE METER Routine 01/25/2018 11:38 PM [employer] POCT-GLUCOSE METER Routine 01/25/2018 6:20 PM [employer] POCT-GLUCOSE METER Routine 01/25/2018 5:59 AM [employer] MAGNESIUM Routine 01/25/2018 5:48 AM [employer] BASIC METABOLIC PANEL (7) Routine 01/25/2018 5:48 AM [employer] POCT-GLUCOSE METER Routine 01/25/2018 12:10 AM [employer] POCT-GLUCOSE METER Routine 01/24/2018 5:30 PM [employer] POCT-GLUCOSE METER Routine 01/24/2018 12:24 PM [employer] SODIUM SHAHID 01/24/2018 11:09 AM [employer] POCT-GLUCOSE METER Routine 01/24/2018 8:17 AM [employer] POCT-GLUCOSE METER Routine 01/24/2018 6:18 AM [employer] CBC W/PLT COUNT & AUTO Routine 01/24/2018 DIFFERENTIAL 3:16 AM [employer] CBC W/PLT COUNT & AUTO Routine 01/24/2018 DIFFERENTIAL 3:16 AM [employer] MAGNESIUM Routine 01/24/2018 3:15 AM [employer] BASIC METABOLIC PANEL (7) Routine 01/24/2018 3:15 AM [employer] POCT-GLUCOSE METER Routine 01/24/2018 12:14 AM [employer] POCT-GLUCOSE METER Routine 01/23/2018 6:35 PM [employer] POCT-GLUCOSE METER Routine 01/23/2018 12:22 PM [employer] POCT-GLUCOSE METER Routine 01/23/2018 6:12 AM [employer] CBC W/PLT COUNT & AUTO Routine 01/23/2018 DIFFERENTIAL 5:12 AM [employer] BASIC METABOLIC PANEL (7) Routine 01/23/2018 5:12 AM [employer] CBC W/PLT COUNT & AUTO Routine 01/23/2018 DIFFERENTIAL 5:12 AM [employer] MAGNESIUM Routine 01/23/2018 5:12 AM [employer] POCT-GLUCOSE METER Routine 01/22/2018 5:13 PM [employer] SODIUM Routine 01/22/2018 4:56 PM [employer] POCT-GLUCOSE METER Routine 01/22/2018 12:33 PM [employer] POCT-GLUCOSE METER Routine 01/22/2018 9:27 AM [employer] POCT-GLUCOSE METER Routine 01/22/2018 5:50 AM [employer] CBC W/PLT COUNT & AUTO Routine 01/22/2018 DIFFERENTIAL 4:27 AM [employer] HEMOGLOBIN A1C Routine 01/22/2018 4:27 AM [employer] TSH Routine 01/22/2018 4:27 AM [employer] BASIC METABOLIC PANEL (7) Routine 01/22/2018 4:27 AM [employer] CBC W/PLT COUNT & AUTO Routine 01/22/2018 DIFFERENTIAL 4:27 AM [employer] MAGNESIUM Routine 01/22/2018 4:27 AM [employer] POCT-GLUCOSE METER Routine 01/21/2018 11:33 PM [employer] NEURO TCD - COMPLETE Routine 01/21/2018 6:08 PM [employer] POCT-GLUCOSE METER Routine 01/21/2018 4:34 PM [employer] POCT-GLUCOSE METER Routine 01/21/2018 10:58 AM [employer] ECG 12-LEAD STAT 01/21/2018 9:14 AM [employer] POCT-GLUCOSE METER Routine 01/21/2018 8:09 AM [employer] POCT-GLUCOSE METER Routine 01/21/2018 5:56 AM [employer] CBC W/PLT COUNT & AUTO Routine 01/21/2018 DIFFERENTIAL 2:59 AM [employer] BASIC METABOLIC PANEL (7) Routine 01/21/2018 2:59 AM [employer] CBC W/PLT COUNT & AUTO Routine 01/21/2018 DIFFERENTIAL 2:59 AM [employer] MAGNESIUM Routine 01/21/2018 2:59 AM [employer] POCT-GLUCOSE METER Routine 01/21/2018 2:05 AM [employer] EEG AWAKE AND DROWSY Routine 01/20/2018 1:42 PM [employer] POCT-GLUCOSE METER Routine 01/20/2018 12:04 [address] [employer] [address] BRAIN WITHOUT IV STAT 01/20/2018 CONTRAST 10:36 AM [employer] ECG 12-LEAD Routine 01/20/2018 8:03 AM [employer] ECG 12-LEAD Routine 01/20/2018 6:26 AM [employer] Procedure Note - Interface, External Ris In - 01/20/2018 6:55 AM [employer] Ventricula r Rate 73 BPM Atrial Rate 208 BPM QRS Duration 88 ms Q-T Interval 536 ms QTC Calculatio n(Bazett) 590 ms R [place] 74 degrees T [place] 113 degrees Atrial fibrillati on Nonspecifi c T wave abnormalit y , probably digitalis effect Prolonged QT Abnormal ECG When compared with ECG of 8 06:26, QT has lengthened ECG 12-LEAD Routine 01/20/2018 6:26 AM [employer] ECG 12-LEAD Routine 01/20/2018 6:26 AM [employer] Procedure Note - Interface, External Ris In - 01/20/2018 6:54 AM [employer] Ventricula r Rate 87 BPM Atrial Rate 340 BPM QRS Duration 88 ms Q-T Interval 350 ms QTC Calculatio n(Bazett) 421 ms R [place] 72 degrees T [place] 95 degrees Atrial fibrillati on Nonspecifi c [...] leads POCT-GLUCOSE METER Routine 01/20/2018 6:00 AM [employer] CBC W/PLT COUNT & AUTO Routine 01/20/2018 DIFFERENTIAL 3:01 AM [employer] CBC W/PLT COUNT & AUTO Routine 01/20/2018 DIFFERENTIAL 3:01 AM [employer] BASIC METABOLIC PANEL (7) Routine 01/20/2018 3:01 AM [employer] POCT-GLUCOSE METER Routine 01/20/2018 12:13 AM [employer] POTASSIUM Routine 2018 5:12 PM [employer] POCT-GLUCOSE METER Routine 2018 4:32 PM [employer] NEURO TCD - COMPLETE Routine 2018 11:02 AM [employer] POCT-GLUCOSE METER Routine 2018 10:51 AM [employer] POCT-GLUCOSE METER Routine 2018 8:25 AM [employer] POCT-GLUCOSE METER Routine 2018 6:48 AM [employer] CBC W/PLT COUNT & AUTO Routine 2018 DIFFERENTIAL 2:48 AM [employer] CBC W/PLT COUNT & AUTO Routine 2018 DIFFERENTIAL 2:48 AM [employer] BASIC METABOLIC PANEL (7) Routine 2018 2:48 AM [employer] POCT-GLUCOSE METER Routine 01/18/2018 11:49 PM [employer] POCT-GLUCOSE METER Routine 01/18/2018 5:16 PM [employer] POCT-GLUCOSE METER Routine 01/18/2018 11:41 AM [employer] 2D ECHO W/ DOPPLER SHAHID 01/18/2018 (CW/PW/COLOR) 7:43 AM [employer] POCT-GLUCOSE METER Routine 01/18/2018 7:30 AM [employer] ECG 12-LEAD Routine 01/18/2018 4:37 AM [employer] CBC W/PLT COUNT & AUTO Routine 01/18/2018 DIFFERENTIAL 3:09 AM [employer] CBC W/PLT COUNT & AUTO Routine 01/18/2018 DIFFERENTIAL 3:09 AM [employer] PHOSPHORUS Routine 01/18/2018 3:09 AM [employer] MAGNESIUM Routine 01/18/2018 3:09 AM [employer] BASIC METABOLIC PANEL (7) Routine 01/18/2018 3:09 AM [employer] POCT-GLUCOSE METER Routine 01/17/2018 11:[address] [employer] [address] [address] BRAIN WITHOUT IV STAT 01/17/2018 CONTRAST PORTABLE 8:43 PM [employer] MAGNESIUM SHAHID 01/17/2018 7:48 PM [employer] POTASSIUM SHAHID 01/17/2018 7:48 PM [employer] NEURO TCD - COMPLETE Routine 01/17/2018 6:10 PM [employer] TRANSFUSION SERVICE 01/17/2018 REPORT - SCAN 6:03 PM [employer] POCT-GLUCOSE METER Routine 01/17/2018 5:40 PM [employer] CBC W/PLT COUNT & AUTO Routine 01/17/2018 DIFFERENTIAL 3:59 PM [employer] CBC W/PLT COUNT & AUTO Routine 01/17/2018 DIFFERENTIAL 3:59 PM [employer] POTASSIUM Routine 01/17/2018 3:58 PM [employer] POCT-GLUCOSE METER Routine 01/17/2018 12:21 PM [employer] POTASSIUM SHAHID 01/17/2018 9:51 AM [employer] POCT-GLUCOSE METER Routine 01/17/2018 5:46 AM [employer] CBC W/PLT COUNT & AUTO Routine 01/17/2018 DIFFERENTIAL 3:42 AM [employer] BASIC METABOLIC PANEL (7) Routine 01/17/2018 3:42 AM [employer] CBC W/PLT COUNT & AUTO Routine 01/17/2018 DIFFERENTIAL 3:42 AM [employer] POCT-GLUCOSE METER Routine 01/17/2018 12:10 AM [employer] PREPARE LEUKO-REDUCED Routine 01/16/2018 PLATELETS 11:54 PM [employer] PREPARE LEUKO-REDUCED Routine 01/16/2018 PLATELETS 11:54 PM [employer] NEURO TCD - COMPLETE Routine 01/16/2018 6:17 PM [employer] POCT-GLUCOSE METER Routine 01/16/2018 6:13 PM [employer] TRANSFUSION SERVICE 01/16/2018 REPORT - SCAN 6:02 [address] [employer] [address] BRAIN WITHOUT IV STAT 01/16/2018 CONTRAST PORTABLE 4:32 PM [employer] POTASSIUM Routine 01/16/2018 12:10 PM [employer] POCT-GLUCOSE METER Routine 01/16/2018 11:59 AM [employer] TRANSFUSE LEUKO-REDUCED Routine 01/16/2018 PLATELETS 11:18 AM [employer] TRANSFUSE LEUKO-REDUCED Routine 01/16/2018 PLATELETS 11:18 AM [employer] POCT-GLUCOSE METER Routine 01/16/2018 5:48 AM [employer] CBC W/PLT COUNT & AUTO Routine 01/16/2018 DIFFERENTIAL 4:14 AM [employer] BASIC METABOLIC PANEL (7) Routine 01/16/2018 4:14 AM [employer] CBC W/PLT COUNT & AUTO Routine 01/16/2018 DIFFERENTIAL 4:14 AM [employer] POCT-GLUCOSE METER Routine 01/15/2018 11:32 PM [employer] TROPONIN I Routine 01/15/2018 5:50 PM [employer] POCT-GLUCOSE METER Routine 01/15/2018 5:43 PM [employer] NV CEREBRAL 4 VESSEL Routine 01/15/2018 ANGIOGRAM 3:34 PM [employer] POCT-ACT Routine 01/15/2018 3:10 PM [employer] ECG 12-LEAD STAT 01/15/2018 10:13 AM [employer] PROCEDURE DONE OUTSIDE OR 01/15/2018 Subarachnoid hemorrhage 9:39 AM [employer] (HCC) Special Needs REQ TF PLATELET AGGREGATION: Routine 01/15/2018 FUNCTION SCREEN 9:07 AM [employer] POCT-GLUCOSE METER Routine 01/15/2018 6:18 AM [employer] URINALYSIS W/ MICROSCOPIC Routine 01/15/2018 5:22 AM [employer] CBC W/PLT COUNT & AUTO Routine 01/15/2018 DIFFERENTIAL 5:00 AM [employer] BASIC METABOLIC PANEL (7) Routine 01/15/2018 5:00 AM [employer] CBC W/PLT COUNT & AUTO Routine 01/15/2018 DIFFERENTIAL 5:00 AM [employer] APTT Routine 01/15/2018 1:11 AM [employer] PROTHROMBIN TIME/INR Routine 01/15/2018 1:11 AM [employer] CBC W/PLT COUNT & AUTO Routine 01/15/2018 DIFFERENTIAL 12:26 AM [employer] TYPE AND SCREEN, Routine 01/15/2018 AUTOMATED 12:26 AM [employer] BASIC METABOLIC PANEL (7) Routine 01/15/2018 12:26 AM [employer] CBC W/PLT COUNT & AUTO Routine 01/15/2018 DIFFERENTIAL 12:26 AM [employer] TROPONIN I Routine 01/15/2018 12:26 [address] [employer] [address] [address]/CTA CAROTID Routine 01/14/2018 11:58 [address] [employer] [address]/CTA BRAIN Routine 01/14/2018 11:58 PM [employer] after 09/04/2017 Results * EKG-SCANNED (02/18/2018 11:20 AM [employer]) Narrative Performed At * RHYTHM STRIP - SCAN (02/18/2018 11:20 AM [employer]) Narrative Performed At * POC-Glucose meter (01/31/2018 11:48 AM [employer]) Only the most recent of 63 results within the time period is included. POC-Glucose Meter 85Comment: TESTED AT [facility] 70 - 110 mg/dL [address] Specimen Blood Performing Organization Address City/State/[place] [address] [facility] * CBC with platelet count + automated diff (01/29/2018 4:41 AM [employer]) Only the most recent of 14 results within the time period is included. WBC 6.6 3.5 - 10.5 K/L [facility] RBC 4.58 (L) 4.63 - 6.08 M/L [facility] Hemoglobin 14.7 13.7 - 17.5 GM/DL [facility] Hematocrit 43.0 40.1 - 51.0 % [facility] MCV 93.9 (H) 79.0 - 92.2 fL [facility] MCH 32.1 25.7 - 32.2 pg [facility] MCHC 34.2 32.3 - 36.5 GM/DL [facility] RDW 12.2 11.6 - 14.4 % [facility] Platelets 217 150 - 450 K/CU MM [facility] MPV 9.9 9.4 - 12.4 fL [facility] nRBC 0 0 - 0 /100 WBC [facility] % Neutros 58 % [facility] % Lymphs 25 % [facility] % Monos 12 % [facility] % Eos 4 % [facility] % Baso 1 % [facility] # Neutros 3.84 1.78 - 5.38 K/L [facility] # Lymphs 1.61 1.32 - 3.57 K/L [facility] # Monos 0.76 0.30 - 0.82 K/L [facility] # Eos 0.28 0.04 - 0.54 K/L [facility] # Baso 0.05 0.01 - 0.08 K/L [facility] Immature 1 0 - 1 % [facility] Granulocytes-Relative [facility] Specimen Blood Performing Organization Address City/State/Zipcode Phone Number [facility] [address] [place] [address] [facility] * Basic Metabolic Panel (01/29/2018 4:41 AM [employer]) Only the most recent of 16 results within the time period is included. Sodium 137 136 - 145 meq/L [facility] Potassium 3.9 3.5 - 5.1 meq/L [facility] Chloride 104 98 - 107 meq/L [facility] CO2 24 22 - 29 meq/L [facility] BUN 18 7 - 21 mg/dL [facility] Creatinine 0.90 0.57 - 1.25 mg/dL [facility] Glucose 83 70 - 105 mg/dL [facility] Calcium 9.8 8.4 - 10.2 mg/dL [facility] EGFR 82Comment: ESTIMATED GFR IS mL/min/1.[address] [facility] NOT ACCURATE CREATININE [facility] CLEARANCE IN PREDICTING GLOMERULAR FILTRATION RATE. ESTIMATED GFR IS NOT APPLICABLE FOR DIALYSIS PATIENTS. Specimen Blood Performing Organization Address City/State/Zipcode Phone Number [facility] [address] [place] [address] [facility] * ECHOCARDIOGRAM REPORT - SCAN (01/27/2018 1:20 PM [employer]) Narrative Performed At * CBC (Hemogram only) (01/27/2018 3:53 AM [employer]) WBC 9.0 3.5 - 10.5 K/L [facility] RBC 4.58 (L) 4.63 - 6.08 M/L [facility] Hemoglobin 14.8 13.7 - 17.5 GM/DL [facility] Hematocrit 43.3 40.1 - 51.0 % [facility] MCV 94.5 (H) 79.0 - 92.2 fL [facility] MCH 32.3 (H) 25.7 - 32.2 pg [facility] MCHC 34.2 32.3 - 36.5 GM/DL [facility] RDW 12.1 11.6 - 14.4 % [facility] Platelets 198 150 - 450 K/CU MM [facility] MPV 10.0 9.4 - 12.4 fL [facility] nRBC 0 0 - 0 /100 WBC [facility] Specimen Blood Performing Organization Address City/State/Zipcode Phone Number [facility] [id number] [place] [address] * Magnesium (01/27/2018 3:53 AM [employer]) Only the most recent of 9 results within the time period is included. Magnesium 2.1 1.6 - 2.6 mg/dL [facility] Specimen Blood Performing Organization Address City[facility] Phone Number [address] * Sodium (01/24/2018 11:09 AM [employer]) Only the most recent of 2 results within the time period is included. Sodium 134 (L) 136 - 145 meq/L [facility] Specimen Blood Performing Organization Address [facility] Phone Number [address] * TSH (01/22/2018 4:27 AM [employer]) TSH 1.24 0.35 - 4.94 uIU/mL [facility] Specimen Blood Performing Organization Address City/[facility] Phone Number [address] * Hemoglobin A1c (01/22/2018 4:27 AM [employer]) Hemoglobin A1C 5.6 4.3 - 6.1 % [facility] Specimen Blood Performing Organization Address [facility] Phone Number [address] * Transcranial Doppler Complete (TCD) (01/21/2018 6:08 PM [employer]) Specimen Narrative Performed At Bladimir Egan MD 01/22/20184:34 PM [facility] - Transcranial Doppler Report Patient Name: Bree Rios Date: 01/21/18 Referring physician: Indication:aSAH Mean Cerebral Blood Flow Velocities (MCBFVs) of the following arteries were insonated: R MCAR ACAR ICAR PCAR EC ICA R Opthalmic R Vertebral L MCAL ACAL ICAL PCAL LPN INSTRUCTOR L Opthalmic L Vertebral BasilarL EC ICA Maximal estimated mean blood flow velocities (cm / sec): R EC ICA 23 L EC ICA 25 R Opthalmic L Opthalmic R MCA38 R JESSICA 89 R ICA 35 R LPN INSTRUCTOR 26 L MCA 36 L JESSICA 54 L ICA30 L LPN INSTRUCTOR 29 R vertebral 24 L vertebral 28 Basilar 39 [place] (R MCA:R ECICA) 1.67 [place] (L MCA:L ECICA)1.47 Post bleed day #: Date: HCT: CVP (mmHg) BP: Clinical correlation recommended. Velocity Range [place] Elevated velocity=90 - 119 cm/sec Mild odbdxglza=001 - 159 cm/sec Moderate tflokogza=508 - 199 cm/sec .Severe vasospasm=? 200 cm/sec Interpretation: Interpretation: [facility], there is no vasospasm. The R JESSICA velocity is mildly elevated Insonated intracranial vessels are patent with antegrade flow. Bladimir Egan MD Senior Research Scientist of Neurology [facility] Performing Organization Address City/State/Zipcode Phone Number GE RIS * ECG 12 lead (01/21/2018 9:14 AM [employer]) Only the most recent of 5 results within the time period is included. Specimen Narrative Performed At Ventricular Rate 66 BPM GE MUSE Atrial Rate 66 BPM P-R Interval 138 ms QRS Duration 88 ms Q-T Interval 406 ms QTC Calculation(Bazett) 425 ms P [place] 26 degrees R [place] 41 degrees T [place] 69 degrees Normal sinus rhythm with pac's Left atrial enlargement Borderline ECG When compared with ECG of 20-JAN-2018 08:03, Sinus rhythm has replaced Atrial fibrillation QT has shortened Confirmed by MD Shanta, Charles ([id number]) on 01/21/2018 2:30:49 PM Procedure Note Interface, External Ris In - 01/21/2018 2:30 PM [employer] Ventricular Rate 66 BPM Atrial Rate 66 BPM P-R Interval 138 ms QRS Duration 88 ms Q-T Interval 406 ms QTC Calculation(Bazett) 425 ms P [place] 26 degrees R [place] 41 degrees T [place] 69 degrees Normal sinus rhythm with pac's Left atrial enlargement Borderline ECG When compared with ECG of 20-JAN-2018 08:03, Sinus rhythm has replaced Atrial fibrillation QT has shortened Confirmed by MD Womack Roberto ([id number]) on 01/21/2018 2:30:49 PM Performing Organization Address City/State/Zipcode Phone Number GE MUSE * EEG AWAKE AND DROWSY (01/20/2018 1:42 PM [employer]) Specimen Narrative Performed At Neurophysiology Electroencephalogram Report GE RIS DATE OF REPORT:DATE \\@ "M/d/yy" 01/20/18 Date(s) of Study: 01/20/2018 ACC: [id number] Start time: 1319 hrs Stop time: 1341 hrs ICD-10: R56.9 Unspecified Convulsions CPT Code: 93839 EEG: awake and asleep <40 min HISTORY (per holter technician note): 73 year old male referred for inpatient EEG due to an episode of shaking during an intense headache. MEDICATIONS THAT COULD AFFECT EEG (in past 24 hours): [place], Ativan TECHNICAL SUMMARY: This is a digital [...] Marisabel Banks MD Epilepsy Fellow [facility] Neurophysiology Service Blair Chen M.D., FACNS, FAAN, FABAUTISTA Professor of Neurology, [facility] [employer] Director, [facility] Epilepsy Center Head, [facility] Neurophysiology Lab Procedure Note Interface, External Ris In - 01/20/2018 3:37 PM [employer] Neurophysiology Electroencephalogram Report DATE OF REPORT: DATE \\@ "M/d/yy" 01/20/18 Date(s) of Study: 01/20/2018 ACC: [id number] Start time: 1319 hrs Stop time: 1341 hrs ICD-10: R56.9 Unspecified Convulsions CPT Code: 83700 EEG: awake and asleep <40 min HISTORY (per holter technician note): 73 year old male referred for inpatient EEG due to an episode of shaking during an intense headache. MEDICATIONS THAT COULD AFFECT EEG (in past 24 hours): [place], Ativan TECHNICAL SUMMARY: This is a digital [...] Marisabel Banks MD Epilepsy Fellow [facility] Neurophysiology Service Blair Chen M.D., FACNS, FAAN, FAES Professor of Neurology, [facility] College [employer] Director, [facility] Comprehensive Epilepsy Center Head, [facility] Neurophysiology Lab Performing Organization Address City/State/Zipcode Phone Number [facility] * CT brain without IV contrast (01/20/2018 10:36 AM CARBIDE TOOL DIE MAKER) Specimen Narrative Performed At FINAL REPORT GE [...] MD Report Verified Date/Time:01/20/2018 10:40:53 Reading Location: [address] Neuro Reading Room Procedure Note Interface, External Ris In - 01/20/2018 10:43 AM CARBIDE TOOL DIE MAKER FINAL REPORT CT Head without contrast CLINICAL [...] Report Verified Date/Time: 01/20/2018 10:40:53 Reading Location: [facility] B1 C013V Neuro Reading Room Performing Organization Address City/State/Zipcode Phone Number [facility] * Potassium (2018 5:12 PM CARBIDE TOOL DIE MAKER) Only the most recent of 5 results within the time period is included. Potassium 3.3 (L) 3.5 - 5.1 meq/L [facility] Specimen Blood Performing Organization Address City/State/Zipcode Phone Number [facility] [phone] [place] [address] * Transcranial Doppler Complete (TCD) (2018 11:02 AM CARBIDE TOOL DIE MAKER) Specimen Narrative Performed At Bladimir Egan MD 01/21/2018 10:27 AM GE [facility]IS [facility] - Transcranial Doppler Report Patient Name: Bree Rios Date: 01/19/18 Referring physician: Indication:aSAH Mean Cerebral Blood Flow Velocities (MCBFVs) of the following arteries were insonated: R MCAR ACAR ICAR PCAR EC ICA R Opthalmic R Vertebral L MCAL ACAL ICAL PCAL LPN INSTRUCTOR L Opthalmic L Vertebral BasilarL EC ICA Maximal estimated mean blood flow velocities (cm / sec): R EC ICA 15 L EC ICA 22 R Opthalmic L Opthalmic R MCA31 R JESSICA 89 R ICA 22 R LPN INSTRUCTOR 20 L MCA 34 L JESSICA 34 L ICA33 L LPN INSTRUCTOR R vertebral 17 L vertebral 20 Basilar 21 Lind[place]ard (R MCA:R ECICA) 2.1 [place]ard (L MCA:L ECICA)1.6 Post bleed day #: Date: HCT: CVP (mmHg) BP: Clinical correlation recommended. Velocity Range Pinto Elevated velocity=90 - 119 cm/sec Mild gkowlwwdc=618 - 159 cm/sec Moderate hdzwshgba=500 - 199 cm/sec .Severe vasospasm=? 200 cm/sec Interpretation: Interpretation: This is a complete TCD study in patient admitted withaSAH Per TCD velocity criteria, there is no vasospasm. Insonated intracranial vessels are patent with antegrade flow. Bladimir Egan MD Senior Research Scientist of Neurology [facility] Performing Organization Address City/State/Zipcode Phone Number GE RIS * 2D Echo W/Doppler(CW/PW/Color) (01/18/2018 7:43 AM CARBIDE TOOL DIE MAKER) Ejection Fraction [facility] Specimen Narrative Performed At Transthoracic Echocardiography Report (TTE) 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 Chavo Cardoza Interpreting Jayro Bowen Physician MD [...] TR Gradient: 35.35 mmHg Performing Organization Address City/[facility] Phone Number [facility] E[facility] MKCKESSON CPACS * Phosphorus (01/18/2018 3:09 AM CARBIDE TOOL DIE MAKER) Phosphorus 2.1 (L) 2.3 - 4.7 mg/dL [facility] Specimen Blood Performing Organization Address City/[facility] Phone Number [facility] [address] [place] [address] [facility] * CT brain without IV contrast portable (01/17/2018 8:43 PM CARBIDE TOOL DIE MAKER) Only the most recent of 2 results within the time period is included. Specimen Narrative Performed At FINAL REPORT [facility] CT BRAIN WITHOUT IV CONTRAST - PORTABLE [...] MD Report Verified Date/Time:01/17/2018 20:44:45 Reading Location: [address] Neuro Reading Room Procedure Note Interface, External Ris In - 01/17/2018 8:47 PM CARBIDE TOOL DIE MAKER FINAL REPORT CT BRAIN WITHOUT IV CONTRAST [...] Report Verified Date/Time: 01/17/2018 20:44:45 Reading Location: [address] Neuro Reading Room Performing Organization Address City/[facility] Phone Number [facility] * Transcranial Doppler Complete (TCD) (01/17/2018 6:10 PM CARBIDE TOOL DIE MAKER) Specimen Narrative Performed At Juan Malone MD 01/17/20187:00 PM [facility] - Transcranial Doppler Report Patient Name: Bree Rios Date: 01/16/18 Referring physician: Indication:aSAH Mean Cerebral Blood Flow Velocities (MCBFVs) of the following arteries were insonated: R MCAR ACAR ICAR PCAR EC ICA R Opthalmic R Vertebral L MCAL ACAL ICAL PCAL LPN INSTRUCTOR L Opthalmic L Vertebral BasilarL EC ICA Maximal estimated mean blood flow velocities (cm / sec): R EC ICA 25 L EC ICA 43 R Opthalmic L Opthalmic R MCA30 R JESSICA 70 R ICA 25 R LPN INSTRUCTOR 20 L MCA 32 L JESSICA 44 L ICA27 L LPN INSTRUCTOR 28 R vertebral 20 L vertebral 14 Basilar 26 Lindegaard (R MCA:R ECICA) 1.21 [place] (L MCA:L ECICA)1.43 Post bleed day #: Date: HCT: CVP (mmHg) BP: Clinical correlation recommended. Velocity Range Pinto Elevated velocity=90 - 119 cm/sec Mild grrxqorip=016 - 159 cm/sec Moderate zurmdadby=179 - 199 cm/sec .Severe vasospasm=? 200 cm/sec Interpretation: This is a complete TCD study in patient admitted withaSAH Per TCD velocity criteria, there is no vasospasm. Insonated intracranial vessels are patent with antegrade flow. Performing Organization Address City/[facility] Phone Number [facility] * TRANSFUSION SERVICE REPORT - SCAN (01/17/2018 6:03 PM CARBIDE TOOL DIE MAKER) Only the most recent of 2 results within the time period is included. Narrative Performed At * Prepare Leuko-Red PLT (01/16/2018 11:54 PM CARBIDE TOOL DIE MAKER) Only the most recent of 2 results within the time period is included. Unit ABO B Pos SAFETRACE TX UNIT NUMBER [id number] SAFETRACE TX Status TRANSFUSED SAFETRACE TX Blood Bank Product PLATELETS SAFETRACE TX PRODUCT CODE [id number] SAFETRACE TX Status CANCELED SAFETRACE TX Blood Bank Product PLATELETS SAFETRACE TX Specimen Blood Performing Organization Address [facility] Phone Number SAFETRACE [place] * Transcranial Doppler Complete (TCD) (01/16/2018 6:17 PM CARBIDE TOOL DIE MAKER) Specimen Narrative Performed At Juan Malone MD 01/17/20187:02 PM GE RIS [facility] - Transcranial Doppler Report Patient Name: Bree Rios Date: 01/17/18 Referring physician: Indication:aSAH Mean Cerebral Blood Flow Velocities (MCBFVs) of the following arteries were insonated: R MCAR ACAR ICAR PCAR EC ICA R Opthalmic R Vertebral L MCAL ACAL ICAL PCAL LPN INSTRUCTOR L Opthalmic L Vertebral BasilarL EC ICA Maximal estimated mean blood flow velocities (cm / sec): R EC ICA 33 L EC ICA 26 R Opthalmic L Opthalmic R MCA37 R JESSICA 83 R ICA 33 R LPN INSTRUCTOR 23 L MCA 32 L JESSICA 45 L ICA42 L LPN INSTRUCTOR 26 R vertebral 18 L vertebral 26 Basilar 25 Lindegaard (R MCA:R ECICA) 1.1 [place] (L MCA:L ECICA)1.35 Post bleed day #: Date: HCT: CVP (mmHg) BP: Clinical correlation recommended. Velocity Range Pinto Elevated velocity=90 - 119 cm/sec Mild twfzggcic=364 - 159 cm/sec Moderate hesanqcoq=502 - 199 cm/sec .Severe vasospasm=? 200 cm/sec Interpretation: Interpretation: This is a complete TCD study in patient admitted withaSAH Per TCD velocity criteria, there is no vasospasm. Insonated intracranial vessels are patent with antegrade flow. Performing Organization Address City/[facility] Phone Number GE [facility] * Transfuse Leuko-Red PLT (01/16/2018 11:18 AM CARBIDE TOOL DIE MAKER) Only the most recent of 2 results within the time period is included. * Troponin I (01/15/2018 5:50 PM CARBIDE TOOL DIE MAKER) Only the most recent of 2 results within the time period is included. Troponin I <0.01 0.00 - 0.03 ng/mL [facility] Specimen Blood Narrative Performed At Troponin I (TnI) levels must be interpreted in the context of the presenting [facility] symptoms and the clinical findings. Elevated TnI levels indicate myocardial [facility] damage, but are not specific for ischemic heart disease. Elevated TnI levels are seen in patients with other cardiac conditions (including myocarditis and congestive heart failure), and slight TnI elevations occur in patients with other conditions, including sepsis, renal failure, acidosis, acute neurological disease, and persistent tachyarrhythmia. Performing Organization Address City/State/Zipcode Phone Number [facility] [address] [place] [address] [facility] * NV cerebral 4 vessel angiogram (01/15/2018 3:34 PM CARBIDE TOOL DIE MAKER) Specimen Narrative Performed At FINAL REPORT [facility] DATE: 01/15/2018 NAME: BREE RIOS ATTENDING: Carlos Wise MD TRANSVERSE ABDOMINAL MUSCLE SURGEON: Noe Curiel MD PREOPERATIVE DIAGNOSIS: Ruptured anterior [...] Catalyst 5 3. SL-10 microcatheter 5. 4 Uruguayan Berenstein catheter 6. Bentson guidewire 7. Terumo [...] the puncture site was confirmed, a 5 Uruguayan x 25 cm sheath was inserted over [...] procedure. Using coaxial technique, a preflushed 5 Uruguayan x 125cm diagnostic catheter on constant heparinized [...] of the ipsilateral PICA, AICAs, SCAs and avionics systems technician. There is contrast reflux into the left [...] MD Report Verified Date/Time:01/16/2018 15:52:50 Reading Location: [facility] Y026 Neuro Angio Reading Room Procedure Note Interface, External Ris In - 01/16/2018 3:55 PM CARBIDE TOOL DIE MAKER FINAL REPORT DATE: 01/15/2018 NAME: BREE RIOS ATTENDING: Carlos Wise MD TRANSVERSE ABDOMINAL MUSCLE SURGEON: Noe Curiel MD PREOPERATIVE DIAGNOSIS: Ruptured anterior [...] Catalyst 5 3. SL-10 microcatheter 5. 4 Uruguayan Berenstein catheter 6. Bentson guidewire 7. Terumo [...] the puncture site was confirmed, a 5 Uruguayan x 25 cm sheath was inserted over [...] procedure. Using coaxial technique, a preflushed 5 Uruguayan x 125cm diagnostic catheter on constant heparinized [...] of the ipsilateral PICA, AICAs, SCAs and avionics systems technician. There is contrast reflux into the left [...] Report Verified Date/Time: 01/16/2018 15:52:50 Reading Location: [facility] Y026 Neuro Angio Reading Room Performing Organization Address City/[facility] Phone Number GE [facility]IS * POC ACTIVATED CLOTTING TIME (01/15/2018 3:10 PM CARBIDE TOOL DIE MAKER) Activated Clotting Time 219Comment: TESTED AT [facility] sec [address] Specimen Blood Performing Organization Address [facility] Phone Number [address] * Platelet Aggregation: Function Screen (01/15/2018 9:07 AM CARBIDE TOOL DIE MAKER) Weak ADP 41 (L) 60 - 91 % [facility] Plt. Function Screen 40-49% indicates moderate [facility] Interpretation platelet dysfunction [facility] Pathologist: Marjorie Buckner MD [facility] (electronic signature) [facility] Platelets 174 150 - 450 K/CU MM [facility] Specimen Blood Narrative Performed At Platelet Function Screen results may be falsely low with platelet counts [facility] <100,000/cu mm. [facility] Performing Organization Address [facility] Phone Number [address] * Urinalysis w/ Microscopic (01/15/2018 5:22 AM CARBIDE TOOL DIE MAKER) Color, UA Light Yellow [facility] Clarity, UA Clear [facility] Specific Halfway, UA 1.010 1.001 - 1.035 [facility] pH, UA 8.0 5.0 - 8.0 [facility] Protein, UA Negative Negative [facility] Glucose, UA Negative Negative [facility] Ketones, UA Negative Negative [facility] Bilirubin, UA Negative Negative [facility] Blood, UA Negative Negative [facility] Nitrite, UA Negative Negative [facility] Leukocytes, UA Negative Negative [facility] Urobilinogen, UA 0.2 0.2 - 1.0 mg/dL [facility] RBC, UA 0 /HPF [facility] WBC, UA 0 /HPF [facility] Specimen Source [facility] Specimen Urine Performing Organization Address City/[facility] Phone Number [address] * aPTT (01/15/2018 1:11 AM CARBIDE TOOL DIE MAKER) PTT 29.2 22.5 - 36.0 seconds [facility] Specimen Blood Performing Organization Address City/[facility] Phone Number [address] * Prothrombin time/INR (01/15/2018 1:11 AM CARBIDE TOOL DIE MAKER) Protime 14.2 11.7 - 14.7 seconds [facility] INR 1.1 <=5.9 [facility] Specimen Blood Narrative Performed At RECOMMENDED COUMADIN/WARFARIN INR THERAPY RANGES [facility] STANDARD DOSE: 2.0 - 3.0 Includes: PROPHYLAXIS for venous thrombosis, [facility] systemic embolization; TREATMENT for venous thrombosis and/or pulmonary embolus. HIGH RISK: Target INR is 2.5-3.5 for patients with mechanical heart valves. Performing Organization Address City/[facility] Phone Number [facility] [address] [place] [address] [facility] * Type and screen, automated (01/15/2018 12:26 AM CARBIDE TOOL DIE MAKER) ABO/RH AUTOMATED (BEAKER) B POSITIVE [facility] Ab Scrn NEGATIVE [facility] Specimen Blood Performing Organization Address City/State/Zipcode Phone Number [facility] [address] [place] [address] [facility] * CTA carotid (01/14/2018 11:58 PM CARBIDE TOOL DIE MAKER) Specimen Narrative Performed At FINAL REPORT [facility] CLINICAL HISTORY: Intracranial hemorrhage TECHNIQUE: Initially, noncontrast [...] MD Report Verified Date/Time:01/15/2018 02:09:39 Reading Location: [address] Neuro Reading Room Procedure Note Interface, External Ris In - 01/15/2018 2:11 AM CARBIDE TOOL DIE MAKER FINAL REPORT CLINICAL HISTORY: Intracranial hemorrhage TECHNIQUE: [...] Report Verified Date/Time: 01/15/2018 02:09:39 Reading Location: [address] Neuro Reading Room Performing Organization Address City/State/Zipcode Phone Number [facility] * CTA brain (01/14/2018 11:58 PM CARBIDE TOOL DIE MAKER) Specimen Narrative Performed At FINAL REPORT [facility] CLINICAL HISTORY: Intracranial hemorrhage TECHNIQUE: Initially, noncontrast [...] MD Report Verified Date/Time:01/15/2018 02:09:39 Reading Location: [facility] C013V Neuro Reading Room Procedure Note Interface, External Ris In - 01/15/2018 2:11 AM CARBIDE TOOL DIE MAKER FINAL REPORT CLINICAL HISTORY: Intracranial hemorrhage TECHNIQUE: [...] Report Verified Date/Time: 01/15/2018 02:09:39 Reading Location: [facility] B1 C013V Neuro Reading Room Performing Organization Address City/State/Zipcode Phone Number GE [facility]IS after 09/04/2017 Insurance Payer Benefit Subscriber ID Type Phone Address Plan / Group [facility] H[facility]/POS CARE POS SELECT CHOICE MEDICARE MEDICARE A xxxxxxxxxxx Medicare B Advance Directives For more information, please contact: [address] [address] Date Inactivated Comments Code Status Date Activated Full Code 01/15/2018 6:04 PM This code status was determined by: Patient
--- NOTE | 2018-09-05 12:15 | NUR ---
1215 Sheath pull successful Puller [address]. held 20min plus 5min and RebecaCorby butler RN on standby with prns. Stasis achieved 1302pm.stable No gross issues pain pallor pressure or dysrhythmia Called report and transferred to floor care Stable with tele and RN escort x2.ppx4 Dp/Dp Denies Dp or SOb family with escort. Midge [phone]. Down time till 6pm Iv to saline lock No s/s infiltration. ds/rn
[2018-09-05] MEDS ORDERED: ATROPINE SULFATE 0.1 MG/ML 10ML SYR ONE (12:18)
[2018-09-05] MEDS ORDERED: HYDRALAZINE HCL 20 MG/ML VIAL ONE (12:25)
[2018-09-05] MEDS ORDERED: SODIUM CHLORIDE 0.9% 1000ML 1,000 ML ONE (12:31)
--- NOTE | 2018-09-05 12:45 | NUR ---
REC'D PT AAOX3, FLAT ON THE STRETCHER, AT THE BEDSIDE, ON ROOM AIR, FLUIDS RUNNING. ASSISTED IN TRANFERRING TO BED. SIDE RAILS UP X2, BED IN LOWEST POSITION, AND CALL MENDEZ WITHIN REACH. INSTRUCTED PT TO REMAIN IN BED UNTIL 6PM. URINAL AT THE BEDSIDE. CARRIED OUT DR. HAM'S ORDERS.
[2018-09-05] MEDS ORDERED: HYDRALAZINE HCL 20 MG/ML VIAL IV PRN (15:00)
[2018-09-05] MEDS ORDERED: NITROGLYCERIN 0.4 MG SUBL SL PRN (15:00)
[2018-09-05] MEDS ORDERED: SODIUM CHLORIDE 0.9% 1000ML 1,000 ML IV ONE (15:00)
--- NOTE | 2018-09-05 16:35 | Operative Report ---
DATE OF PROCEDURE: 09/05/2018 SURGEON: Ryley Luis MD INDICATIONS: Coronary artery disease and abnormal stress test. PROCEDURES PERFORMED: 1. Left heart catheterization, selective coronary angiography. 2. Percutaneous transluminal coronary angioplasty and stent placed in the proximal left anterior descending artery. 3. Manual removal of the sheath in the right groin. RECOMMENDATIONS: Triple antiplatelet and anticoagulant therapy for three months. DESCRIPTION OF PROCEDURE: Access was obtained in the right femoral artery. A 6-Marshallese sheath was placed. Left main was heavily calcified, mild disease. Left anterior descending artery proximal 80% heavily calcified type C lesion, stented. Circumflex was mildly patent. Remaining left anterior descending artery diffuse 30% to 50% stenosis. Right coronary artery proximal 70% heavy calcifications. Right posterior descending artery diffuse 50% to 70%. LV end-diastolic pressure of 10. No gradient across the aortic valve on pullback. A decision was made to intervene on the left anterior descending artery. The patient received intravenous Angiomax for anticoagulation. The left main was cannulated using an EBU 5.0, 6-Marshallese guiding catheter. A short wire was advanced across the lesion. Predilatation with a 2 mm cutting balloon was performed following which a single 3.0 x 12 mm Resolute Snook drug-eluting stent was deployed at 20 atmospheres. Excellent end result, less than 10% residual stenosis, ETTA-3 flow. No complications. Guide was removed. Sheath was secured in place for removal under manual pressure. The patient was observed in the hospital overnight. Ryley Luis MD KSB/MODL /[id number]
--- NOTE | 2018-09-05 18:00 | NUR ---
PT HAS BEEN SAT UP IN BED IN HIGH-FOWLERS POSITION. PATIENT TOLERATED WELL. NO S/S OF DISTRESS. AT BEDSIDE. SIDE RAILS UP X2, BED IN LOWEST POSITION, AND CALL MENDEZ WITHIN REACH.
--- NOTE | 2018-09-05 18:55 | NUR ---
PT IS IN BED EATING DINNER. NO S/S OF DISTRESS. AT BEDSIDE. BED IN LOWEST POSITION, SIDE RAILS UPX2, AND CALL MENDEZ WITHIN REACH.
[2018-09-05] MEDS ORDERED: EZETIMIBE 10 MG TAB PO SCH (21:00)
[2018-09-05] MEDS ORDERED: ATORVASTATIN 20 MG TAB PO SCH (21:00)
[2018-09-06 00:37] VITALS: BP 109/60
[2018-09-06 05:14] VITALS: BP 131/84
[2018-09-06 05:51] LABS: BASOPHILS % 0.3 % (0.0-1.0); EOSINOPHILS # (AUTO) 0.2 (0.0-0.4); EOSINOPHILS % 3.5 % (0.0-6.0); HEMATOCRIT 44.5 % (38.2-49.6); HEMOGLOBIN 15.7 g/dL (14.0-18.0); LYMPHOCYTES # (AUTO) 1.1 (1.0-3.2); LYMPHOCYTES % 16.8 % (18.0-39.1); MEAN CORPUSCULAR HEMOGLOBIN 32.3 pg (28-32); MEAN CORPUSCULAR HGB CONC 35.3 g/dL (31-35); MEAN CORPUSCULAR VOLUME 91.6 fL (81-99); MONOCYTES # (AUTO) 0.7 (0.2-0.8); MONOCYTES % 10.7 % (4.4-11.3); NEUTROPHILS # (AUTO) 4.3 (2.1-6.9); NEUTROPHILS % 68.4 % (38.7-80.0); PLATELET COUNT 136 x10e3/uL (140-360); RED BLOOD COUNT 4.86 x10e6/uL (4.3-5.7); RED CELL DISTRIBUTION WIDTH 12.9 % (11.7-14.4)
[2018-09-06 06:00] LABS: ANION GAP 12.2 mmol/L (8-16); BLOOD UREA NITROGEN 13 mg/dL (7-26); BUN/CREATININE RATIO 17 (6-25); CALCIUM 9.2 mg/dL (8.4-10.2); CARBON DIOXIDE 23 mmol/L (22-29); CHLORIDE 108 mmol/L (98-107); CREATININE, SERUM 0.78 mg/dL (0.72-1.25); EST GLOMERULAR FILTRATION RATE > 60 ML/MIN (60-); GLUCOSE 98 mg/dL (74-118); POTASSIUM 4.2 mmol/L (3.5-5.1); SODIUM 139 mmol/L (136-145)
--- NOTE | 2018-09-06 07:24 | NUR ---
Rcvd patient in report this am. Patient is awake in bed at this time. Right groin site remains clean, dry and no bleeding or bruising noted. No c/o pain and no s/s of distress noted
[2018-09-06] MEDS ORDERED: PANTOPRAZOLE SOD 40 MG TABEC PO SCH (07:30)
[2018-09-06 08:20] VITALS: BP 162/99
--- NOTE | 2018-09-06 08:58 | NUR ---
Call placed to Dr. Benítez to inquire about patient being discharged.
[2018-09-06] MEDS ORDERED: ASPIRIN 81 MG CHEW TAB PO SCH (09:00)
[2018-09-06] MEDS ORDERED: FOLIC ACID 1 MG TAB PO SCH (09:00)
[2018-09-06] MEDS ORDERED: METOPROLOL TARTRATE 50 MG TAB PO SCH (09:00)
[2018-09-06] MEDS ORDERED: MULTIVITAMINS/MINERALS TAB PO SCH (09:00)
[2018-09-06] MEDS ORDERED: CLOPIDOGREL BISULFATE 75 MG TAB PO SCH (09:00)
--- NOTE | 2018-09-06 09:00 | NUR ---
Patient is AAOx3. Patient is post op heart cath. Right groin dressing clean and dry. No bleeding or bruising noted. Pedal pulses palpable. Lung davila auscultated and wheezing and some crackles noted. Patient is a smoker. Bowel sounds present x4. No edema noted. Left hand IV in place.
[2018-09-06 09:02] VITALS: BP 162/99
--- NOTE | 2018-09-06 09:41 | NUR ---
Removed IV at this time. PRessure dressing applied
--- NOTE | 2018-09-06 09:50 | NUR ---
Patient discharged from facility to home. Patient assisted out via staff in wheelchair. Reviewed all discharge instructions, follow up appts and no RX's needed.
== END 2018-09-06 09:53 | disposition home or self-care (01) ==
LOC: CATH LAB 06:30 → CATH LAB V 09:49 → MED/SURG 13:30
PROVIDERS: ADMIT Internal Medicine Interventional Cardiology; ATTEND Internal Medicine Interventional Cardiology
DX: I25.119 Atherosclerotic heart disease of native coronary artery with unspecified angina pectoris (principal); I73.9 Peripheral vascular disease, unspecified; F17.200 Nicotine dependence, unspecified, uncomplicated; I87.2 Venous insufficiency (chronic) (peripheral); I10 Essential (primary) hypertension
CPT/HCPCS: 93458; C9600; 36415; 80048; 80053; 80061; 85025; 85610; 92928; C1725; C1769; C1874; C1887; G0378; J0360; J0583; J1644; J2001; J2250; J3010; J7030; Q9967

== ENCOUNTER → 2021-08-22 | Day surgery (SDC) | payer OTHER, MEDICARE ==
[2021-08-18 15:06] LABS: BASOPHILS % 0.7 % (0.0-1.0); EOSINOPHILS # (AUTO) 0.2 (0.0-0.4); EOSINOPHILS % 3.3 % (0.0-6.0); HEMATOCRIT 37.8 % (38.2-49.6); HEMOGLOBIN 12.1 g/dL (14.0-18.0); LYMPHOCYTES # (AUTO) 1.3 (1.0-3.2); LYMPHOCYTES % 21.2 % (18.0-39.1); MEAN CORPUSCULAR HEMOGLOBIN 28.8 pg (28-32); MONOCYTES # (AUTO) 0.8 (0.2-0.8); NEUTROPHILS # (AUTO) 3.8 (2.1-6.9); NEUTROPHILS % 61.5 % (38.7-80.0); PLATELET COUNT 143 x10e3/uL (140-360); RED CELL DISTRIBUTION WIDTH 15.1 % (11.7-14.4)
[2021-08-18 15:51] LABS: ALANINE AMINOTRANSFERASE 14 IU/L (0-55); ALBUMIN 3.6 g/dL (3.5-5.0); ALBUMIN/GLOBULIN RATIO 1.1 (0.8-2.0); ALKALINE PHOSPHATASE 82 IU/L (40-150); ANION GAP 15.9 mmol/L (8-16); BLOOD UREA NITROGEN 25 mg/dL (7-26); BUN/CREATININE RATIO 21 (6-25); CARBON DIOXIDE 25 mmol/L (22-29); CHLORIDE 100 mmol/L (98-107); CREATININE, SERUM 1.18 mg/dL (0.72-1.25); GLUCOSE 85 mg/dL (74-118); POTASSIUM 4.9 mmol/L (3.5-5.1); SODIUM 136 mmol/L (136-145)
[2021-08-22] VITALS (18 sets, daily range): BP systolic 146–196; BP diastolic 85–110
[~2021-08-22] VITALS: Ht 167.6 cm; Wt 72.6 kg
[~2021-08-22] MED LIST changes: +ALPRAZOLAM 0.5 MG TAB ONE; +AMIODARONE HCL100 MG PO; +ASPIRIN 325 MG TAB ONE; +BIVALRIUDIN 250 MG/VIAL VIAL IV ONE; +DIPHENHYDRAMINE HCL 25 MG CAP ONE; +FENTANYL CITRATE/PF 100MCG/2 ML INJ ONE; +HEPARIN SOD (PORCINE) 1000 UNIT/ML 30ML ONE; +HEPARIN SOD/SOD CHLORIDE 2,000 ML ONE; +HYDRALAZINE HCL 20 MG/ML VIAL ONE; +IOPAMIDOL 370 MG/ML 100 ML INFUS..BTL INJ ONE; +LABETALOL HCL100 MG PO; +LIDOCAINE HCL 2% LOCAL 20 ML VIAL ONE; +LOSARTAN POTASS25 MG PO; +MIDAZOLAM HCL 2 MG/2 ML VIAL ONE; +PRASUGREL 10 MG TAB ONE; +SODIUM CHLORIDE 0.9% 1000ML 1,000 ML ONE; +VERAPAMIL HCL 2.5 MG/ML 2 ML VIAL ONE; +XARELTO20 MG PO
== END | disposition home or self-care (01) ==
LOC: CATH LAB 09:55
PROVIDERS: ATTEND Internal Medicine Interventional Cardiology
DX: I25.119 Atherosclerotic heart disease of native coronary artery with unspecified angina pectoris (principal); R94.39 Abnormal result of other cardiovascular function study; I73.9 Peripheral vascular disease, unspecified; F17.200 Nicotine dependence, unspecified, uncomplicated; Z01.812 Encounter for preprocedural laboratory examination; Z20.822 Contact with and (suspected) exposure to COVID-19; Z79.02 Long term (current) use of antithrombotics/antiplatelets; Z79.82 Long term (current) use of aspirin; Z79.899 Other long term (current) drug therapy
CPT/HCPCS: 0223U; 36415; 76937; 80053; 85025; 92928; 93458; C1725; C1769; C1874; C1887 ×2; C1894; J0360; J0583; J2001; J2250; J3010; J7030; Q9967; 92920; 99153; J1644